=== PATIENT | male | born 1930 | race Caucasian/White ===

== ENCOUNTER 2016-10-10 13:09 | Observation (INO) | payer MEDICARE, OTHER ==
--- NOTE | 2016-10-10 14:14 | CR ---
Ankle Min 3V Lt, Foot Comp Min 3V Lt INDICATION: pain and swelling in the left ankle FINDINGS: Slight bunion deformity and mild degenerative narrowing first MTP joint. Fracture of the d istal shaft of the third metatarsal appears subacute or chronic, however, clinically correlate with patient's point tenderness to exclude acute fracture. Chronic deformity of the calcaneus. Probable p es cavus. Ankle mortise is intact. Arterial calcification. Exam otherwise negative.
--- NOTE | 2016-10-10 15:16 | EDM.PDOC ---
ED HPI GENERAL MEDICAL PROBLEM - General Chief Complaint: Lower Extremity Injury/Pain Stated Complaint: INJURY LT ANKLE/FOOT Time Seen by Provider: 10/10/16 13:35 Source of Information: Reports: Patient, Family History Limitations: Reports: No Limitations - History of Present Illness INITIAL COMMENTS - FREE TEXT/NARRATIVE: pt was transfering and his left leg gave out and he fell. He is having pain on the lateral portion of the ankle. He has a fair amount of swelling in the foot and ankle. He is most tender on the lateral portion of the ankle. Onset: Other (yesterday. ) Duration: Hour(s):, Getting Worse Location: Reports: Lower Extremity, Left Associated Symptoms: Reports: Other (pt has slight bruising around the left eye. He did not hit his head or was not knocked out. ) - Related Data Allergies Allergy/AdvReac Type Severity Reaction Status Date / Time No Known Allergies Allergy Verified 10/10/16 13:37 Home Meds: Home Meds Albuterol [Proventil HFA] 2 puff INH Q4H PRN 10/10/16 [History] Allopurinol [Zyloprim] 1 tab PO DAILY 10/10/16 [History] Aspirin [Ecotrin] 1 tab PO DAILY 10/10/16 [History] Budesonide/Formoterol [Symbicort 160-4.5 MCG] 2 puff INH BID 10/10/16 [History] Cefdinir [Omnicef] 1 cap PO BID 10/10/16 [History] Cholecalciferol (Vitamin D3) [Vitamin D3] 1 tab PO DAILY 10/10/16 [History] Citalopram [Citalopram HBr] 1 tab PO DAILY 10/10/16 [History] Ergocalciferol (Vitamin D2) [Vitamin D2] 1 tab PO ASDIRECTED 10/10/16 [History] Pioglitazone [Actos] 1 tab PO QAM 10/10/16 [History] Pravastatin [Pravachol] 1 tab PO BEDTIME 10/10/16 [History] Silver Sulfadiazine [Silvadene 1% Cream 20 GM] 1 applic TOP DAILY 10/10/16 [ History] Tamsulosin [Flomax] 1 tab PO BEDTIME 10/10/16 [History] glipiZIDE [Glucotrol] 1 tab PO BID 10/10/16 [History] metFORMIN [Glucophage] 1 tab PO BID 10/10/16 [History] Past Medical History HEENT History: Reports: Cataract Cardiovascular History: Reports: High Cholesterol, Hypertension, Stents Other Cardiovascular History: 5 stents Musculoskeletal History: Reports: Other (See Below) Other Musculoskeletal History: post polio syndrome Endocrine/Metabolic History: Reports: Diabetes, Type II Oncologic (Cancer) History: Reports: Colon - Infectious Disease History Infectious Disease History: Reports: Other (See Below) Other Infectious Disease History: polio - Past Surgical History HEENT Surgical History: Reports: Cataract Surgery GI Surgical History: Reports: Colonoscopy, Other (See Below) Other GI Surgeries/Procedures: bowel resection Musculoskeletal Surgical History: Reports: Joint Replacement, Knee Replacement Other Musculoskeletal Surgeries/Procedures:: right knee Social & Family History - Tobacco Use Smoking Status *Q: Former Smoker Years of Tobacco use: 30 Packs/Tins Daily: 0.5 Used Tobacco, but Quit: Yes Month Tobacco Last Used: february - Caffeine Use Caffeine Use: Reports: Soda - Recreational Drug Use Recreational Drug Use: No Review of Systems - Review of Systems Review Of Systems: See Below Constitutional: Reports: No Symptoms Eyes: Reports: No Symptoms Ears: Reports: No Symptoms Nose: Reports: No Symptoms Mouth/Throat: Reports: No Symptoms Respiratory: Reports: No Symptoms Cardiovascular: Reports: No Symptoms GI/Abdominal: Reports: No Symptoms Musculoskeletal: Reports: Other (pain and swelling in the left foot and ankle. ) Skin: Reports: No Symptoms ED EXAM, GENERAL - Physical Exam Exam: See Below Free Text/Narrative:: pt states his left leg gave way and he fell and now he has oain in the left ankle. He states he is having difficulty walking with it. Exam Limited By: No Limitations General Appearance: Alert, Anxious Ears: Normal TMs Nose: Normal Inspection Throat/Mouth: Normal Inspection Extremities: Other (pt has sig swelling of the left foot and ankle. He has redness around the lateral aspect of the ankle. This area is very tender to palpate. r) Neurological: Alert, Oriented Course - Vital Signs Last Recorded V/S: Last Vital Signs Temp 37.0 C 10/10/16 14:01 Pulse 94 10/10/16 14:01 Resp 16 10/10/16 14:01 BP 169/99 H 10/10/16 14:01 Pulse Ox 92 L 10/10/16 14:01 - Orders/Labs/Meds Labs: Laboratory Tests 10/10/16 10/10/16 Range/Units 14:30 14:30 WBC 12.5 H (4.5-11.0) K/uL RBC 3.98 L (4.30-5.90) M/uL Hgb 12.0 (12.0-15.0) g/dL Hct 36.4 L (40.0-54.0) % MCV 92 (80-98) fL MCH 30 (27-31) pg MCHC 33 (32-36) % Plt Count 234 (150-400) K/uL Add Manual Diff Yes Neutrophils % (Manual) 72 H (36-66) % Lymphocytes % (Manual) 13 L (24-44) % Monocytes % (Manual) 15 H (2-6) % Uric Acid 8.0 H (3.5-7.2) mg/dL Meds: Medications Discontinued Medications Generic Name Dose Route Start Last Admin Trade Name Freq PRN Reason Stop Dose Admin Hydrocodone Bitart/Acetaminophen 1 tab 10/10/16 15:45 10/10/16 15:55 Bryson 325-5 Mg PO 10/10/16 15:46 1 tab ONETIME ONE Administration Triamcinolone Acetonide 60 mg 10/10/16 15:23 10/10/16 15:55 Kenalog-40 INJECT 10/10/16 15:24 60 mg ASDIRECTED ONE Administration - Re-Assessments/Exams Free Text/Narrative Re-Assessment/Exam: 10/10/16 15:22 xrays did not reveal any acute fractures. He had a elevated uric acid and wbc. Departure - Departure Time of Disposition: 15:24 Disposition: Admitted As Inpatient 68 Condition: Fair Clinical Impression: Sprain of left ankle, Gout of left ankle - Discharge Information Instructions: Gout, [id number], Ankle Sprain, [id number] Referrals: PCP,None [Primary Care Provider] - Forms: ED Department Discharge Care Plan Goals: cool pack to the foot and ankle, cam walker, The walker can be taken off and on. elevate left leg if possible, predisone 10mg daily for 4 days, appt with his usual Dr in 4-5 days. He may need an increase in his allpurinol to prevent the gout. Use the wheel chair at home. norco 1/2 to 1 tab at bedtime for pain. after some consideration with discharge planning our only option is to admit overnite.
[2016-10-10] MEDS ORDERED: Triamcinolone Acetonide 40 MG/ML 1 ML MDV INJECT ONE (15:23)
[2016-10-10] MEDS ORDERED: Acetaminophen/HYDROcodone 325-5 MG Tab PO ONE (15:45)
--- NOTE | 2016-10-10 18:47 | PCM.HP ---
H&P History of Present Illness - General Date of Service: 10/10/16 Admit Problem/Dx: Admission Diagnosis/Problem Admission Diagnosis/Problem Gout Source of Information: Patient, Provider, RN Notes Reviewed History Limitations: Reports: No Limitations - History of Present Illness Initial Comments - Free Text/Narative: Mr. Silva is an 86-year-old gentleman who is admitted through the emergency department to observation status for management of gout involving his left ankle. 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 X-rays obtained in the emergency department showed no evidence of fracture although there is significant tenderness and swelling about the ankle with associated erythema. He does have a previous history of gout as well as chronic kidney disease stage IV. His uric acid level was significantly elevated. - Related Data Allergies/Adverse Reactions: Allergies Allergy/AdvReac Type Severity Reaction Status Date / Time No Known Allergies Allergy Verified 10/10/16 13:37 Home Medications: Home Meds Albuterol [Proventil HFA] 2 puff INH Q4H PRN 10/10/16 [History] Allopurinol [Zyloprim] 1 tab PO DAILY 10/10/16 [History] Aspirin [Ecotrin] 1 tab PO DAILY 10/10/16 [History] Budesonide/Formoterol [Symbicort 160-4.5 MCG] 2 puff INH BID 10/10/16 [History] Cefdinir [Omnicef] 1 cap PO BID 10/10/16 [History] Cholecalciferol (Vitamin D3) [Vitamin D3] 1 tab PO DAILY 10/10/16 [History] Citalopram [Citalopram HBr] 1 tab PO DAILY 10/10/16 [History] Ergocalciferol (Vitamin D2) [Vitamin D2] 1 tab PO ASDIRECTED 10/10/16 [History] Pioglitazone [Actos] 1 tab PO QAM 10/10/16 [History] Pravastatin [Pravachol] 1 tab PO BEDTIME 10/10/16 [History] Silver Sulfadiazine [Silvadene 1% Cream 20 GM] 1 applic TOP DAILY 10/10/16 [ History] Tamsulosin [Flomax] 1 tab PO BEDTIME 10/10/16 [History] glipiZIDE [Glucotrol] 1 tab PO BID 10/10/16 [History] metFORMIN [Glucophage] 1 tab PO BID 10/10/16 [History] Past Medical History HEENT History: Reports: Cataract Cardiovascular History: Reports: High Cholesterol, Hypertension, Stents Other Cardiovascular History: 5 stents Musculoskeletal History: Reports: Other (See Below) Other Musculoskeletal History: post polio syndrome Endocrine/Metabolic History: Reports: Diabetes, Type II Oncologic (Cancer) History: Reports: Colon - Infectious Disease History Infectious Disease History: Reports: Other (See Below) Other Infectious Disease History: polio - Past Surgical History HEENT Surgical History: Reports: Cataract Surgery GI Surgical History: Reports: Colonoscopy, Other (See Below) Other GI Surgeries/Procedures: bowel resection Musculoskeletal Surgical History: Reports: Joint Replacement, Knee Replacement Other Musculoskeletal Surgeries/Procedures:: right knee Social & Family History - Tobacco Use Smoking Status *Q: Former Smoker Years of Tobacco use: 30 Packs/Tins Daily: 0.5 Used Tobacco, but Quit: Yes Month Tobacco Last Used: february - Caffeine Use Caffeine Use: Reports: Soda - Recreational Drug Use Recreational Drug Use: No H&P Review of Systems - Review of Systems: Review Of Systems: See Below General: Denies: Fever, Chills, Night Sweats HEENT: Reports: No Symptoms Pulmonary: Reports: No Symptoms Gastrointestinal: Reports: No Symptoms Genitourinary: Reports: No Symptoms Musculoskeletal: Reports: Other (Left ankle pain) Skin: Reports: No Symptoms Psychiatric: Reports: No Symptoms Neurological: Reports: No Symptoms Hematologic/Lymphatic: Reports: No Symptoms Immunologic: Reports: No Symptoms Exam - Exam Exam: See Below - Vital Signs Vital Signs: Last Vital Signs Temp 98.6 F 10/10/16 14:01 Pulse 94 10/10/16 14:01 Resp 16 10/10/16 14:01 BP 169/99 H 10/10/16 14:01 Pulse Ox 92 L 10/10/16 14:01 Weight: 243 lb - Exam Quality Assessment: DVT Prophylaxis General: Alert, Oriented, Cooperative HEENT: Conjunctiva Clear, Mucosa Moist & [place], Normal Nasal Septum, Posterior Pharynx Clear, Pupils Equal Neck: Supple, Trachea Midline, +2 Carotid Pulse wo Bruit Lungs: Clear to Auscultation, Normal Respiratory Effort Cardiovascular: Regular Rate, Regular Rhythm, Normal S1, Normal S2. No: Systolic Murmur, Diastolic Murmur Abdomen: Normal Bowel Sounds, Soft Back Exam: Normal Inspection, Full Range of Motion, NT Extremities: Other (Tenderness, erythema, and swelling left ankle) Skin: Warm, Dry, Intact Neurological: Cranial Nerves Intact, Strength Equal Bilateral, Normal Speech, Normal Tone. No: Focal Deficit Neuro Extensive - Mental Status: Alert, Oriented x3, Normal Mood/Affect, Normal Cognition - Patient Data Lab Results Last 24 hrs: Laboratory Results - last 24 hr 10/10/16 Range/Units 18:02 Urine Color Yellow Urine Appearance Clear Urine pH 5.0 (4.5-8.0) Ur Specific [place] 1.020 (1.008-1.030) Urine Protein Negative (NEGATIVE) mg/dL Urine Glucose (UA) Normal (NEGATIVE) mg/dL Urine Ketones 15 H (NEGATIVE) mg/dL Urine Occult Blood Negative (NEGATIVE) Urine Nitrite Negative (NEGAITVE) Urine Bilirubin Negative (NEGATIVE) Urine Urobilinogen Normal (NORMAL) mg/dL Ur Leukocyte Esterase Negative (NEGATIVE) Urine RBC 0-5 (0-5) Urine WBC 0-5 (0-5) Ur Epithelial Cells Few Amorphous Sediment Not seen Urine Bacteria Moderate Urine Mucus Few Result Diagrams: 10/10/16 14:30 10/10/16 16:31 *Q Meaningful Use (ADM) - VTE *Q VTE Criteria *Q: - VTE Risk Assess *Q Each Risk Factor Represents 1 Point: Obesity (BMI greater than 30) Total Score 1 Point Risk Factors: 1 Each Risk Factor Represents 2 Points: None Total Score 2 Point Risk Factors: 0 Each Risk Factor Represents 3 Points: Age 75 Years or Greater Total Score 3 Point Risk Factors: 3 Each Risk Factor Represents 5 Points: None Total Score 5 Point Risk Factors: 0 Venous Thromboembolism Risk Factor Score *Q: 4 - Stroke *Q Stroke Criteria *Q: - AMI *Q AMI Criteria *Q: Problem List Initiated/Reviewed/Updated: Yes Orders Last 24hrs: Active Orders 24 hr Category Date Time Status Resuscitation Status Routine Resus Stat 10/10/16 17:09 Ordered Assessment/Plan Comment:: ASSESSMENT AND PLAN GOUT LEFT ANKLE-pain after a fall yesterday, evidence of an old third metatarsal fracture, no evidence of acute fracture. Elevated uric acid level associated with pain and swelling. Not a candidate for cultures seen or nonsteroidal therapy because of stage IV chronic kidney disease. -Solu-Medrol 40 mg IV every 6 hours CHRONIC KIDNEY DISEASE STAGE IV -Closely monitor urine output and renal function during hospital stay TYPE 2 DIABETES MELLITUS -Hold metformin given significant renal dysfunction -Continue Actos and glipizide -4 times a day glucometers -Low-dose sliding scale NovoLog CORONARY ARTERY DISEASE-currently asymptomatic -Continue outpatient medical therapy MAINTENANCE ISSUES -DVT prophylaxis; Lovenox 30 mg subcutaneous daily -GI prophylaxis; not indicated -[place] catheter; not indicated -Nutrition; consistent carb diet -Nicotinic dependence; not required CODE STATUS-FULL CODE ADMISSION STATUS-this patient will be admitted to observation status, expect no more than a one night hospital stay for evaluation and management of problems as outlined above. DISPOSITION-anticipate discharge to home after the hospital stay. PRIMARY CARE PROVIDER-
[2016-10-10] MEDS ORDERED: Albuterol 8 GM Inhaler INH PRN (19:17)
[2016-10-10] MEDS ORDERED: Enoxaparin 30 MG/0.3 ML Syringe SUBCUT SCH (19:17)
[2016-10-10] MEDS ORDERED: Acetaminophen 325 MG Tab PO PRN (19:17)
[2016-10-10] MEDS ORDERED: Ondansetron 4 MG/2 ML SDV IV PRN (19:17)
[2016-10-10] MEDS ORDERED: Docusate Sodium 100 MG Cap PO PRN (19:17)
[2016-10-10] MEDS ORDERED: Polyethylene Glycol 3350 Powder 17 GM Packet PO PRN (19:17)
[2016-10-10] MEDS ORDERED: Glucose Gel 15 GM in 37.5 GM Tube PO PRN (19:17)
[2016-10-10] MEDS ORDERED: 50% Dextrose in Water 50 ML Syringe IV PRN (19:17)
[2016-10-10] MEDS ORDERED: Acetaminophen/HYDROcodone 325-5 MG Tab PO PRN (19:17)
[2016-10-10] MEDS ORDERED: Magnesium Hydroxide 400 MG/5 ML Susp 30 ML Cup PO PRN (19:17)
[2016-10-10] MEDS: Cefdinir 300 MG Cap PO SCH (20:30)
[2016-10-10] MEDS: methylPREDNISolone Sodium Succinate 40 MG/1 ML SDV IVPUSH SCH (20:30)
[2016-10-10] MEDS: Sodium Chloride 0.9% 10 ML Syringe FLUSH PRN (20:33)
[2016-10-10] MEDS ORDERED: Tamsulosin 0.4 MG Cap.ER PO SCH (21:00)
[2016-10-10] MEDS ORDERED: Pravastatin 20 MG Tab PO SCH (21:00)
[2016-10-10] MEDS: glipiZIDE 5 MG Tab PO SCH (21:11)
[2016-10-10] MEDS: Formoterol/Mometasone 200-5 MCG 8.8 GM Inhaler IH SCH (21:11)
[2016-10-10] MEDS: Insulin Aspart 100 Units/ML 3 ML Pen SUBCUT SCH (21:28)
[2016-10-11] MEDS: methylPREDNISolone Sodium Succinate 40 MG/1 ML SDV IVPUSH SCH ×2 (02:16→08:39)
[2016-10-11] MEDS: Sodium Chloride 0.9% 10 ML Syringe FLUSH PRN (02:17)
[2016-10-11] MEDS: Insulin Aspart 100 Units/ML 3 ML Pen SUBCUT SCH ×2 (08:31→14:11)
[2016-10-11] MEDS ORDERED: Allopurinol 100 MG Tab PO SCH (09:00)
[2016-10-11] MEDS ORDERED: Pioglitazone 15 MG Tab PO SCH (09:00)
[2016-10-11] MEDS ORDERED: Aspirin 325 MG Tab.EC PO SCH (09:00)
[2016-10-11] MEDS ORDERED: Cholecalciferol (Vitamin D3) 1,000 Unit Tab PO SCH (09:00)
[2016-10-11] MEDS ORDERED: Citalopram 20 MG Tab PO SCH (09:00)
[2016-10-11] MEDS ORDERED: Ergocalciferol (Vitamin D2) 50,000 Unit Cap PO SCH (09:00)
--- NOTE | 2016-10-11 09:30 | PCM.DCSUM1 ---
Discharge Summary - Hospital Course Brief History: Mr. Silva is an 86-year-old gentleman who was admitted to observation status through the emergency department because of severe pain in his left ankle secondary to gout. - Discharge Data Discharge Date: 10/11/16 Discharge Disposition: Home, Self-Care 01 Condition: Fair - Discharge Diagnosis/Problem(s) (1) Type 2 diabetes mellitus SNOMED Code(s): 61408627 ICD Code: E11.9 - TYPE 2 DIABETES MELLITUS WITHOUT COMPLICATIONS Status: Acute Current Visit: Yes (2) CKD (chronic kidney disease) stage 4, GFR 15-29 ml/min SNOMED Code(s): 392701544 ICD Code: N18.4 - CHRONIC KIDNEY DISEASE, STAGE 4 (SEVERE) Status: Acute Current Visit: Yes (3) Sprain of left ankle SNOMED Code(s): 94587288 ICD Code: S93.402A - SPRAIN OF UNSPECIFIED LIGAMENT OF LEFT ANKLE, INIT ENCNTR Status: Acute Current Visit: Yes (4) Gout of left ankle SNOMED Code(s): 326839148 ICD Code: M10.9 - GOUT, UNSPECIFIED Status: Acute Current Visit: Yes - Patient Summary/Data Consults: Consultations 10/10/16 19:17 PT Evaluation and Treatment [CONS] Routine Please Evaluate and Treat. PT Reason for Consult: Ambulation This query below is only for informational purposes and is not editable. Hospital Course: Mr. Silva is a 6-year-old gentleman with several medical problems including type 2 diabetes mellitus, chronic kidney disease stage IV, and coronary artery disease. He fell on the day prior to admission and noted increased pain in his left ankle following a fall. 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 On evaluation in emergency department x-rays are negative for acute fracture, there was evidence of probable subacute or chronic fracture involving the distal aspect of the third metatarsal on the left. There was significant tenderness to palpation associated with erythema felt that he probably had a gout flare, uric acid level was 8. He was given IV Solu-Medrol after admission and by the following morning noted marked improvement in the inflammation and pain involving his left ankle. His creatinine was noted to be significantly elevated with a GFR consistent with stage IV chronic kidney disease. Metformin was held during his hospital stay. I've asked him to see his primary care provider for follow-up, given his significant kidney dysfunction we 'll likely need to stop the metformin and place him on alternative therapy. I did explain to the patient that this would likely involve insulin. He will receive prednisone 40 mg daily for 2 additional days. Activity will be as tolerated and he will resume his diabetic diet. Follow-up appointment will be scheduled in 5 days with his primary care provider, BMP should be obtained at the time of follow-up appointment. - Patient Instructions Diet: Diabetic Diet Activity: As Tolerated Other/Special Instructions: Please schedule follow-up appointment with primary care provider within one week, to discuss chronic kidney disease stage IV as well as management of his diabetes. BMP should be obtained at the time of follow -up appointment. - Discharge Plan Prescriptions/Med Rec: predniSONE [Prednisone] 40 mg PO DAILY #4 tablet Home Medications: Home Meds Albuterol [Proventil HFA] 2 puff INH Q4H PRN 10/10/16 [History] Allopurinol [Zyloprim] 1 tab PO DAILY 10/10/16 [History] Aspirin [Ecotrin] 1 tab PO DAILY 10/10/16 [History] Budesonide/Formoterol [Symbicort 160-4.5 MCG] 2 puff INH BID 10/10/16 [History] Cefdinir [Omnicef] 1 cap PO BID 10/10/16 [History] Cholecalciferol (Vitamin D3) [Vitamin D3] 1 tab PO DAILY 10/10/16 [History] Citalopram [Citalopram HBr] 1 tab PO DAILY 10/10/16 [History] Ergocalciferol (Vitamin D2) [Vitamin D2] 1 tab PO ASDIRECTED 10/10/16 [History] Pioglitazone [Actos] 1 tab PO QAM 10/10/16 [History] Pravastatin [Pravachol] 1 tab PO BEDTIME 10/10/16 [History] Silver Sulfadiazine [Silvadene 1% Cream 20 GM] 1 applic TOP DAILY 10/10/16 [ History] Tamsulosin [Flomax] 1 tab PO BEDTIME 10/10/16 [History] glipiZIDE [Glucotrol] 1 tab PO BID 10/10/16 [History] predniSONE [Prednisone] 40 mg PO DAILY #4 tablet 10/11/16 [Rx] Patient Handouts: Gout, [id number], Ankle Sprain, [id number] Forms: ED Department Discharge Referrals: PCP,None [Primary Care Provider] - - Patient Data Vitals - Most Recent: Last Vital Signs Temp 98.6 F 10/11/16 07:30 Pulse 88 10/11/16 07:30 Resp 20 10/11/16 07:30 BP 181/73 H 10/11/16 07:30 Pulse Ox 95 10/11/16 07:30 Weight - Most Recent: 243 lb I&O - Last 24 hours: Intake & Output 10/10/16 10/11/16 10/11/16 22:59 06:59 14:59 Intake Total 120 200 Output Total 225 625 Balance -105 -425 Lab Results - Last 24 hrs: Laboratory Results - last 24 hr 10/10/16 10/11/16 10/11/16 Range/Units 18:02 06:01 06:01 WBC 8.1 (4.5-11.0) K/uL RBC 3.90 L (4.30-5.90) M/uL Hgb 11.3 L (12.0-15.0) g/dL Hct 35.6 L (40.0-54.0) % MCV 91 (80-98) fL MCH 29 (27-31) pg MCHC 32 (32-36) % Plt Count 216 (150-400) K/uL Neut % (Auto) 87 H (36-66) % Lymph % (Auto) 8 L (24-44) % [place] % (Auto) 4 (2-6) % Eos % (Auto) 0 L (2-4) % Baso % (Auto) 0 (0-1) % Sodium 140 (140-148) mmol/L Potassium 4.6 (3.6-5.2) mmol/L Chloride 103 (100-108) mmol/L Carbon Dioxide 28 (21-32) mmol/L Anion Gap 8.9 (5.0-14.0) mmol/L BUN 45 H (7-18) mg/dL Creatinine 2.0 H (0.8-1.3) mg/dL Est Cr Clr Drug Dosing 30.18 mL/min Estimated GFR (MDRD) 32 L (>60) Glucose 228 H (74-106) mg/dL Calcium 8.8 (8.5-10.1) mg/dL Urine Color Yellow Urine Appearance Clear Urine pH 5.0 (4.5-8.0) Ur Specific [place] 1.020 (1.008-1.030) Urine Protein Negative (NEGATIVE) mg/dL Urine Glucose (UA) Normal (NEGATIVE) mg/dL Urine Ketones 15 H (NEGATIVE) mg/dL Urine Occult Blood Negative (NEGATIVE) Urine Nitrite Negative (NEGAITVE) Urine Bilirubin Negative (NEGATIVE) Urine Urobilinogen Normal (NORMAL) mg/dL Ur Leukocyte Esterase Negative (NEGATIVE) Urine RBC 0-5 (0-5) Urine WBC 0-5 (0-5) Ur Epithelial Cells Few Amorphous Sediment Not seen Urine Bacteria Moderate Urine Mucus Few Med Orders - Current: Current Medications Acetaminophen (Tylenol) 650 mg PO Q4H PRN PRN Reason: Pain (Mild 1-3)/fever Hydrocodone Bitart/Acetaminophen (Distant 325-5 Mg) 1 tab PO Q4H PRN PRN Reason: Pain (moderate 4-6) Last Admin: 10/10/16 21:27 Dose: 1 tab Albuterol (Ventolin Hfa) 0 gm INH Q4H PRN PRN Reason: Shortness of Breath Allopurinol (Zyloprim) 100 mg PO DAILY [facility] Aspirin (Ecotrin) 325 mg PO DAILY [facility] Cefdinir (Omnicef) 300 mg PO BID [facility] Last Admin: 10/10/16 20:30 Dose: 300 mg Cholecalciferol (Vitamin D3) 2,000 units PO DAILY [facility] Citalopram Hydrobromide (Celexa) 20 mg PO DAILY [facility] Dextrose (Glutose 15) 15 gm PO ONETIME PRN PRN Reason: Hypoglycemia Dextrose/Water (Dextrose 50% In Water) 50 ml IV ONETIME PRN PRN Reason: Hypoglycemia Docusate Sodium (Colace) 100 mg PO BID PRN PRN Reason: Constipation Enoxaparin Sodium (Lovenox) 30 mg SUBCUT Q24H [facility] Ergocalciferol (Vitamin D2) 50,000 units PO TuFr@0900 [facility] Glipizide (Glucotrol) 5 mg PO BID [facility] Last Admin: 10/10/16 21:11 Dose: Not Given Insulin Aspart (Novolog) 0 unit SUBCUT WITHMEALSANDBED [facility] PRN Reason: Protocol Last Admin: 10/11/16 08:31 Dose: 2 unit Magnesium Hydroxide (Milk Of Magnesia) 30 ml PO Q12H PRN PRN Reason: Constipation Methylprednisolone Sodium Succinate (Solu-Medrol) 40 mg IVPUSH Q6H [facility] Last Admin: 10/11/16 08:39 Dose: 40 mg Mometasone Furoate/Formoterol Fumar (Dulera 200-5 Mcg) 2 puff IH BID [facility] Last Admin: 10/10/16 21:11 Dose: Not Given Ondansetron HCl (Zofran) 4 mg IV Q4H PRN PRN Reason: Nausea/Vomiting Pioglitazone HCl (Actos) 30 mg PO QAM [place]AY[place] Polyethylene Glycol (Miralax) 17 gm PO DAILY PRN PRN Reason: Constipation Pravastatin Sodium (Pravachol) 40 mg PO BEDTIME [facility] Last Admin: 10/10/16 21:12 Dose: Not Given Sodium Chloride (Saline Flush) 10 ml FLUSH ASDIRECTED PRN PRN Reason: Keep Vein Open Last Admin: 10/11/16 02:17 Dose: 10 ml Tamsulosin HCl (Flomax) 0.4 mg PO BEDTIME [facility] Last Admin: 10/10/16 21:11 Dose: Not Given Discontinued Medications Hydrocodone Bitart/Acetaminophen (Distant 325-5 Mg) 1 tab PO ONETIME ONE Stop: 10/10/16 15:46 Last Admin: 10/10/16 15:55 Dose: 1 tab Enoxaparin Sodium (Lovenox) 30 mg SUBCUT DAILY [facility] Last Admin: 10/10/16 20:29 Dose: 30 mg Triamcinolone Acetonide (Kenalog-40) 60 mg INJECT ASDIRECTED ONE Stop: 10/10/16 15:24 Last Admin: 10/10/16 15:55 Dose: 60 mg *Q Meaningful Use (DIS) - VTE *Q VTE Criteria *Q: - Stroke *Q Stroke Criteria *Q: - AMI *Q AMI Criteria *Q:
[2016-10-11] MEDS: Formoterol/Mometasone 200-5 MCG 8.8 GM Inhaler IH SCH (10:51)
[2016-10-11] MEDS ORDERED: Insulin Aspart 100 Units/ML 3 ML Pen SUBCUT ONE (11:45)
[2016-10-11 12:42] VITALS: BP 147/92
[2016-10-11] MEDS: Cefdinir 300 MG Cap PO SCH (14:10)
[2016-10-11] MEDS: glipiZIDE 5 MG Tab PO SCH (14:10)
[2016-10-11] MEDS ORDERED: Enoxaparin 30 MG/0.3 ML Syringe SUBCUT SCH (18:00)
== END 2016-10-11 13:30 | disposition home or self-care (01) ==
LOC: JP.ED 13:09 → JP.ICU 17:07
PROVIDERS: ADMIT Hospitalist; ATTEND Hospitalist
DX: S93.402A Sprain of unspecified ligament of left ankle, initial encounter (principal); M10.9 Gout, unspecified; I12.9 Hypertensive chronic kidney disease with stage 1 through stage 4 chronic kidney disease, or unspecified chronic kidney disease; E11.22 Type 2 diabetes mellitus with diabetic chronic kidney disease; N18.4 Chronic kidney disease, stage 4 (severe); Z79.84 Long term (current) use of oral hypoglycemic drugs; I25.10 Atherosclerotic heart disease of native coronary artery without angina pectoris; E78.00 Pure hypercholesterolemia, unspecified; E66.9 Obesity, unspecified; Z79.82 Long term (current) use of aspirin; Z95.5 Presence of coronary angioplasty implant and graft; Z87.891 Personal history of nicotine dependence; Z79.899 Other long term (current) drug therapy; Z98.890 Other specified postprocedural states; Z90.49 Acquired absence of other specified parts of digestive tract; W01.0XXA Fall on same level from slipping, tripping and stumbling without subsequent striking against object, initial encounter
CPT/HCPCS: 36415; 73610; 73630; 80048; 80053; 81001; 82962; 84550; 85025; 96372; 99284; A9270; J1650; J2920; J3301; J7050; 96374; 99217; 99219; 99283; G0378

== ENCOUNTER 2016-10-24 16:55 | Observation (INO) | payer MEDICARE, OTHER ==
--- NOTE | 2016-10-24 17:58 | EDM.PDOC ---
<Meño Duron - Last Filed: 10/24/16 18:07> ED HPI GENERAL MEDICAL PROBLEM - General Chief Complaint: General Stated Complaint: MEDICAL [facility]IA [facility] Time Seen by Provider: 10/24/16 17:30 Source of Information: Reports: Patient, EMS, Family History Limitations: Reports: No Limitations - History of Present Illness INITIAL COMMENTS - FREE TEXT/NARRATIVE: 86-year-old male who still lives at home but is being taken care of by his children gets in-home occupational therapy and today he wasn't able to cooperate with therapy at his usual level, seemed confused, was not able to count past 13 and unable to understand the concept of counting backwards. He has also had a persistent headache for the past 2 weeks which is unusual for him , however no fevers or chills no nausea or vomiting, it does not seem to be interrupting his sleep. He has had some medication changes recently. Patient also mentioned he had some double vision and dizziness this morning. The patient himself is convinced it's his medicines. He now seems more lucid, is able to count backwards and forwards and is answering questions appropriately. Throughout this he has not developed any peripheral symptoms such as weakness or paresthesias. Onset: Gradual (Over the past 1-2 days) Severity: Moderate Associated Symptoms: Reports: Confusion, Headaches, Shortness of Breath. Denies : Chest Pain, Fever/Chills, Nausea/Vomiting - Related Data Allergies Allergy/AdvReac Type Severity Reaction Status Date / Time No Known Allergies Allergy Verified 10/10/16 13:37 Home Meds: Home Meds Albuterol [Proventil HFA] 2 puff INH Q4H PRN 10/10/16 [History] Allopurinol [Zyloprim] 1 tab PO DAILY 10/10/16 [History] Aspirin [Ecotrin] 1 tab PO DAILY 10/10/16 [History] Budesonide/Formoterol [Symbicort 160-4.5 MCG] 2 puff INH BID 10/10/16 [History] Cefdinir [Omnicef] 1 cap PO BID 10/10/16 [History] Cholecalciferol (Vitamin D3) [Vitamin D3] 1 tab PO DAILY 10/10/16 [History] Citalopram [Citalopram HBr] 1 tab PO DAILY 10/10/16 [History] Ergocalciferol (Vitamin D2) [Vitamin D2] 1 tab PO ASDIRECTED 10/10/16 [History] Pioglitazone [Actos] 1 tab PO QAM 10/10/16 [History] Pravastatin [Pravachol] 1 tab PO BEDTIME 10/10/16 [History] Silver Sulfadiazine [Silvadene 1% Cream 20 GM] 1 applic TOP DAILY 10/10/16 [ History] Tamsulosin [Flomax] 1 tab PO BEDTIME 10/10/16 [History] glipiZIDE [Glucotrol] 1 tab PO BID 10/10/16 [History] Indomethacin [Indocin] 25 mg PO TID 10/24/16 [History] Insulin Glarg,Human.Rec.Analog [Lantus Solostar] 20 units SUBCNJ BEDTIME [History] Past Medical History HEENT History: Reports: Cataract, Impaired Vision Cardiovascular History: Reports: High Cholesterol, Hypertension, Stents Other Cardiovascular History: 5 stents Respiratory History: Reports: SOB, Other (See Below) Other Respiratory History: on inhaler Genitourinary History: Reports: Other (See Below) Other Genitourinary History: slow flow Musculoskeletal History: Reports: Other (See Below) Other Musculoskeletal History: post polio syndrome Endocrine/Metabolic History: Reports: Diabetes, Type II Oncologic (Cancer) History: Reports: Colon - Infectious Disease History Infectious Disease History: Reports: Other (See Below) Other Infectious Disease History: polio - Past Surgical History HEENT Surgical History: Reports: Cataract Surgery GI Surgical History: Reports: Colonoscopy, Other (See Below) Other GI Surgeries/Procedures: bowel resection Musculoskeletal Surgical History: Reports: Joint Replacement, Knee Replacement Other Musculoskeletal Surgeries/Procedures:: right knee Social & Family History - Tobacco Use Smoking Status *Q: Former Smoker Years of Tobacco use: 30 Packs/Tins Daily: 0.5 Used Tobacco, but Quit: Yes Month Tobacco Last Used: 30 years Second Hand Smoke Exposure: No - Caffeine Use Caffeine Use: Reports: Coffee - Recreational Drug Use Recreational Drug Use: No ED ROS GENERAL - Review of Systems Review Of Systems: See Below Constitutional: Denies: Fever, Chills, Malaise HEENT: Reports: No Symptoms Respiratory: Reports: Shortness of Breath (Chronic and recurring) Cardiovascular: Denies: Chest Pain GI/Abdominal: Denies: Abdominal Pain, Nausea, Vomiting Musculoskeletal: Reports: Other (Still wrapping his left lower leg from a recent sprain) Skin: Reports: Bruising Neurological: Reports: Confusion, Headache. Denies: Syncope Psychiatric: Reports: No Symptoms ED EXAM, GENERAL - Physical Exam Exam: See Below Exam Limited By: No Limitations General Appearance: Alert, No Apparent Distress Eye Exam: Bilateral Eye: EOMI Respiratory/Chest: No Respiratory Distress, Wheezing (Diffuse expiratory wheezes and decreased breath sounds are heard) Cardiovascular: Regular Rate, Rhythm GI/Abdominal: Non-Tender, Other (Patient is quite obese, nontender to palpation) Extremities: Other (An Woody wrap was present on the left foot, a small amount of swelling and scattered bruises to both arms and legs) Neurological: Alert, Oriented, Normal Cognition, No Motor/Sensory Deficits Psychiatric: Normal Affect, Normal Mood Skin Exam: Warm, Dry Course - Vital Signs Last Recorded V/S: Last Vital Signs Temp 36.9 C 10/24/16 17:23 Pulse 80 10/24/16 18:29 Resp 20 10/24/16 18:29 BP 145/70 H 10/24/16 18:29 Pulse Ox 100 10/24/16 18:29 - Orders/Labs/Meds Orders: Active Orders 24 hr Category Date Time Status Head wo Cont [CT] Stat Exams 10/24/16 17:33 Taken Sodium Chloride 0.9% [Normal Saline] 1,000 ml Med 10/24/16 19:00 Active IV ASDIRECTED Medication Orders Sodium Chloride (Normal Saline) 1,000 mls @ 500 mls/hr IV ASDIRECTED JAYDEN Last Admin: 10/24/16 19:04 Dose: 500 mls/hr Labs: Laboratory Tests 10/24/16 10/24/16 10/24/16 Range/Units 18:15 18:15 18:55 WBC 7.2 (4.5-11.0) K/uL RBC 3.91 L (4.30-5.90) M/uL Hgb 11.9 L (12.0-15.0) g/dL Hct 35.4 L (40.0-54.0) % MCV 91 (80-98) fL MCH 30 (27-31) pg MCHC 33 (32-36) % Plt Count 226 (150-400) K/uL Neut % (Auto) 65 (36-66) % Lymph % (Auto) 16 L (24-44) % [place] % (Auto) 13 H (2-6) % Eos % (Auto) 5 H (2-4) % Baso % (Auto) 1 (0-1) % Add Manual Diff Neutrophils % (Manual) 59 (36-66) % Band Neutrophils % 3 L (5-11) % Lymphocytes % (Manual) 23 L (24-44) % Monocytes % (Manual) 10 H (2-6) % Eosinophils % (Manual) 5 H (2-4) % Polychromasia Sodium 139 L (140-148) mmol/L Potassium 4.8 (3.6-5.2) mmol/L Chloride 103 (100-108) mmol/L Carbon Dioxide 32 (21-32) mmol/L Anion Gap 4.5 L (5.0-14.0) mmol/L BUN 47 H (7-18) mg/dL Creatinine 2.2 H (0.8-1.3) mg/dL Est Cr Clr Drug Dosing 27.47 mL/min Estimated GFR (MDRD) 29 L (>60) Glucose 238 H (74-106) mg/dL Calcium 8.8 (8.5-10.1) mg/dL Urine Color Yellow Urine Appearance Clear Urine pH 6.0 (4.5-8.0) Ur Specific [place] 1.015 (1.008-1.030) Urine Protein Negative (NEGATIVE) mg/dL Urine Glucose (UA) 250 H (NEGATIVE) mg/dL Urine Ketones Negative (NEGATIVE) mg/dL Urine Occult Blood Negative (NEGATIVE) Urine Nitrite Negative (NEGAITVE) Urine Bilirubin Negative (NEGATIVE) Urine Urobilinogen Normal (NORMAL) mg/dL Ur Leukocyte Esterase Negative (NEGATIVE) Urine RBC 0-5 (0-5) Urine WBC Not seen (0-5) Ur Epithelial Cells Rare Amorphous Sediment Not seen Urine Bacteria Rare Urine Mucus Rare Meds: Medications Generic Name Dose Route Start Last Admin Trade Name Freq PRN Reason Stop Dose Admin Sodium Chloride 1,000 mls @ 500 mls/hr 10/24/16 19:00 10/24/16 19:04 Normal Saline IV 500 mls/hr ASDIRECTED JAYDEN Administration - Re-Assessments/Exams Free Text/Narrative Re-Assessment/Exam: 10/24/16 18:00 Patient has a known chronic renal failure, CMP and BMP were repeated. A CT of his head will also be obtained. A glucose was checked during his confusion and was 120, hypoglycemia was not the cause. 10/24/16 18:08 Care was turned over to Dr. Haq Departure - Departure Disposition: Home, Self-Care 01 Clinical Impression: Confusion - Discharge Information Forms: ED Department Discharge Additional Instructions: I would recommend that you make an appointment with her doctor for follow-up to see if there is any adjustments that need to be made in your medications and just for continuing care. It was a pleasure to meet you. - My Orders Last 24 Hours: My Active Orders 10/24/16 19:00 Sodium Chloride 0.9% [Normal Saline] 1,000 ml IV ASDIRECTED - Assessment/Plan Last 24 Hours: My Active Orders 10/24/16 19:00 Sodium Chloride 0.9% [Normal Saline] 1,000 ml IV ASDIRECTED <Jimmy Haq - Last Filed: 10/24/16 20:04> ED HPI GENERAL MEDICAL PROBLEM - History of Present Illness INITIAL COMMENTS - FREE TEXT/NARRATIVE: Patient's head CT was negative. I visited with him and the caregiver that was with him and he would like to just go home. I think he understands that at this stage of his life that every days a blessing and anything could happen at any time but he would like to stay away from hospitals and nursing homes and be independent as long as possible. It could be that he had a TIA. He is on aspirin. Departure - Departure Time of Disposition: 20:02 Condition: Fair
[2016-10-24] MEDS ORDERED: Sodium Chloride 0.9% 1,000 ML IV SCH ×2 (19:00→22:59)
[2016-10-24] MEDS ORDERED: Albuterol 0.083% 2.5 MG/3 ML Neb Soln NEB PRN (22:59)
[2016-10-24] MEDS ORDERED: Zolpidem 5 MG Tab PO PRN (22:59)
[2016-10-24] MEDS ORDERED: Morphine 2 MG/ML Syringe IVPUSH PRN (22:59)
[2016-10-24] MEDS ORDERED: Acetaminophen 325 MG Tab PO PRN (22:59)
[2016-10-24] MEDS ORDERED: oxyCODONE 5 MG Tab PO PRN (22:59)
[2016-10-24] MEDS ORDERED: Ondansetron 4 MG Tab.DIS PO PRN (22:59)
[2016-10-24] MEDS ORDERED: LORazepam 2 MG/ML MDV IV PRN (22:59)
[2016-10-24] MEDS ORDERED: Ondansetron 4 MG/2 ML SDV IV PRN (22:59)
[2016-10-24] MEDS ORDERED: Bisacodyl 5 MG Tab PO PRN (22:59)
[2016-10-24] MEDS ORDERED: Docusate Sodium 100 MG Cap PO PRN (22:59)
[2016-10-24] MEDS ORDERED: Ergocalciferol (Vitamin D2) 50,000 Unit Cap PO SCH (23:00)
[2016-10-24] MEDS: Insulin Aspart 100 Units/ML 3 ML Pen SUBCUT SCH (23:49)
[2016-10-24] MEDS: GLIPIZIDE 5 MG PO SCH (23:51)
[2016-10-24] MEDS: Cefdinir 300 MG Cap PO SCH (23:52)
--- NOTE | 2016-10-25 00:24 | PCM.HP ---
H&P History of Present Illness - General Date of Service: 10/24/16 Admit Problem/Dx: Admission Diagnosis/Problem Admission Diagnosis/Problem Weakness Source of Information: Patient History Limitations: Reports: No Limitations - History of Present Illness Initial Comments - Free Text/Narative: HPI GENERAL MEDICAL PROBLEM INITIAL COMMENTS - FREE TEXT/NARRATIVE: 86-year-old male who still lives at home but is being taken care of by his children gets in-home occupational therapy and today he wasn't able to cooperate with therapy at his usual level, seemed confused, was not able to count past 13 and unable to understand the concept of counting backwards. He has also had a persistent headache for the past 2 weeks which is unusual for him , however no fevers or chills no nausea or vomiting, it does not seem to be interrupting his sleep. He has had some medication changes recently. Patient also mentioned he had some double vision and dizziness this morning. The patient himself is convinced it's his medicines. He now seems more lucid, is able to count backwards and forwards and is answering questions appropriately. Throughout this he has not developed any peripheral symptoms such as weakness or paresthesias. Onset: Gradual (Over the past 1-2 days) Severity: Moderate Associated Symptoms: Reports: Confusion, Headaches, Shortness of Breath. Denies : Chest Pain, Fever/Chills, Nausea/Vomiting After further consideration and discussing the home situation with this gentleman it was decided that we should admit him for observation. From the description of the caregiver it sounds like he had a TIA with left-sided numbness of his left arm and left leg which cleared. He's having some dizziness upon arising and laying down in lives alone and is at risk for falls. Onset of Symptoms: Reports: Gradual Duration of Symptoms: Reports: Hour(s): Location: Reports: Generalized Severity: Mild Improves with: Reports: None Worsens with: Reports: None Context: Reports: Other (not feeling well for the past two weeks.) Associated Symptoms: Reports: Confusion, Headaches (x 2 weeks), Shortness of Breath (many years), Weakness Left Feet Pain Score (Numeric/FACES): 3 - Related Data Allergies/Adverse Reactions: Allergies Allergy/AdvReac Type Severity Reaction Status Date / Time No Known Allergies Allergy Verified 10/10/16 13:37 Home Medications: Home Meds Albuterol [Proventil HFA] 2 puff INH Q4H PRN 10/10/16 [History] Allopurinol [Zyloprim] 1 tab PO DAILY 10/10/16 [History] Aspirin [Ecotrin] 1 tab PO DAILY 10/10/16 [History] Budesonide/Formoterol [Symbicort 160-4.5 MCG] 2 puff INH BID 10/10/16 [History] Cefdinir [Omnicef] 1 cap PO BID 10/10/16 [History] Cholecalciferol (Vitamin D3) [Vitamin D3] 1 tab PO DAILY 10/10/16 [History] Citalopram [Citalopram HBr] 1 tab PO DAILY 10/10/16 [History] Ergocalciferol (Vitamin D2) [Vitamin D2] 1 tab PO ASDIRECTED 10/10/16 [History] Pioglitazone [Actos] 1 tab PO QAM 10/10/16 [History] Pravastatin [Pravachol] 1 tab PO BEDTIME 10/10/16 [History] Silver Sulfadiazine [Silvadene 1% Cream 20 GM] 1 applic TOP DAILY 10/10/16 [ History] Tamsulosin [Flomax] 1 tab PO BEDTIME 10/10/16 [History] glipiZIDE [Glucotrol] 1 tab PO BID 10/10/16 [History] Indomethacin [Indocin] 25 mg PO TID 10/24/16 [History] Insulin Glarg,Human.Rec.Analog [Lantus Solostar] 20 units SUBCNJ BEDTIME [History] Past Medical History HEENT History: Reports: Cataract, Impaired Vision Cardiovascular History: Reports: High Cholesterol, Hypertension, Stents Other Cardiovascular History: 5 stents Respiratory History: Reports: SOB, Other (See Below) Other Respiratory History: on inhaler Genitourinary History: Reports: Other (See Below) Other Genitourinary History: slow flow Musculoskeletal History: Reports: Other (See Below) Other Musculoskeletal History: post polio syndrome Endocrine/Metabolic History: Reports: Diabetes, Type II Oncologic (Cancer) History: Reports: Colon - Infectious Disease History Infectious Disease History: Reports: Other (See Below) Other Infectious Disease History: polio - Past Surgical History HEENT Surgical History: Reports: Cataract Surgery GI Surgical History: Reports: Colonoscopy, Other (See Below) Other GI Surgeries/Procedures: bowel resection Musculoskeletal Surgical History: Reports: Joint Replacement, Knee Replacement Other Musculoskeletal Surgeries/Procedures:: right knee Social & Family History - Tobacco Use Smoking Status *Q: Never Smoker Years of Tobacco use: 30 Packs/Tins Daily: 0.5 Used Tobacco, but Quit: Yes Month Tobacco Last Used: 30 years Second Hand Smoke Exposure: No - Caffeine Use Caffeine Use: Reports: Coffee - Recreational Drug Use Recreational Drug Use: No - Living Situation & Occupation Living situation: Reports: ( of 60 + years 7 years ago. Daughter this year from muscular dystrophy) Occupation: Disabled H&P Review of Systems - Review of Systems: Review Of Systems: See Below General: Reports: Malaise, Weakness, Fatigue HEENT: Reports: No Symptoms, Glasses, Other (natural teeth) Pulmonary: Reports: Shortness of Breath (chronic) Cardiovascular: Reports: Dyspnea on Exertion, Edema Gastrointestinal: Reports: No Symptoms Genitourinary: Reports: No Symptoms Musculoskeletal: Reports: Joint Pain (gout left ankle), Muscle Pain, Muscle Stiffness, Other (gout in left ankle ) Skin: Reports: Bruising (lower legs) Psychiatric: Reports: No Symptoms Neurological: Reports: Headache, Difficulty Walking, Weakness Hematologic/Lymphatic: Reports: No Symptoms Immunologic: Reports: No Symptoms Exam - Exam Exam: See Below - Vital Signs Vital Signs: Last Vital Signs Temp 36.9 C 10/24/16 17:23 Pulse 86 10/24/16 21:44 Resp 20 10/24/16 21:44 BP 140/81 10/24/16 21:44 Pulse Ox 96 10/24/16 21:44 Weight: 121.1 kg - Exam General: Alert, Oriented, 4 HEENT: PERRLA, Conjunctiva Clear, EACs Clear, EOMI, Hearing Intact, Mucosa Moist & [place], Nares Patent, Normal Nasal Septum, Posterior Pharynx Clear, Pupils Equal, Pupils Reactive, TMs Clear Neck: Supple, Trachea Midline Lungs: Clear to Auscultation, Normal Respiratory Effort Cardiovascular: Regular Rate, Regular Rhythm, Normal S1, Normal S2 GI/Abdominal Exam: Normal Bowel Sounds, Soft, Non-Tender, No Organomegaly (Male) Exam: Deferred Rectal (Males) Exam: Deferred Back Exam: Normal Inspection, Full Range of Motion Extremities: Normal Inspection, Normal Range of Motion, Non-Tender, No Pedal Edema, Normal Capillary Refill Skin: Ecchymosis (lower legs and forearms.) Neurological: Reflexes Equal Bilateral, Strength Equal Bilateral, Normal Speech , Normal Tone, Sensation Intact Neuro Extensive - Mental Status: Alert, Oriented x3, Normal Mood/Affect, Normal Cognition, Memory Intact Psychiatric: Alert, Normal Affect, Normal Mood - Patient Data Result Diagrams: 10/24/16 18:15 10/24/16 18:15 *Q Meaningful Use (ADM) - VTE *Q VTE Criteria *Q: - Stroke *Q Stroke Criteria *Q: - AMI *Q AMI Criteria *Q: - Problem List (1) Weakness SNOMED Code(s): 77498652 Status: Acute Priority: High Current Visit: Yes (2) Confusion SNOMED Code(s): 342639703 ICD Code: R41.0 - DISORIENTATION, UNSPECIFIED Status: Acute Priority: Low Current Visit: Yes Problem Details: resolved while in ER (3) CKD (chronic kidney disease) stage 4, GFR 15-29 ml/min SNOMED Code(s): 932643007 ICD Code: N18.4 - CHRONIC KIDNEY DISEASE, STAGE 4 (SEVERE) Status: Acute Priority: Medium Current Visit: No (4) Gout of left ankle SNOMED Code(s): 016916350 ICD Code: M10.9 - GOUT, UNSPECIFIED Status: Acute Priority: Medium Current Visit: No (5) Type 2 diabetes mellitus SNOMED Code(s): 35551392 ICD Code: E11.9 - TYPE 2 DIABETES MELLITUS WITHOUT COMPLICATIONS Status: Acute Priority: Medium Current Visit: No Qualifiers: Diabetes mellitus complication status: without complication Diabetes mellitus terminal carman insulin use: with long-term use Qualified Code(s): E11.9 - Type 2 diabetes mellitus without complications; Z79.4 - petroleum terminal plant operator (current) use of insulin Problem List Initiated/Reviewed/Updated: Yes Orders Last 24hrs: Active Orders 24 hr Category Date Time Status Patient Status [ADT] Routine ADT 10/24/16 22:59 Active Cardiac Monitoring [RC] .As Directed Care 10/24/16 22:59 Active Diabetes Education [RC] Click to Edit Care 10/24/16 22:59 Active Intake and Output [RC] QSHIFT Care 10/24/16 22:59 Active Oxygen Therapy [RC] PRN Care 10/24/16 22:59 Active RT Aerosol Therapy [RC] ASDIRECTED Care 10/24/16 22:59 Active Up With Assistance [RC] ASDIRECTED Care 10/24/16 22:59 Active VTE/DVT Education [RC] Per Unit Routine Care 10/24/16 22:59 Active Vital Signs [RC] Q4H Care 10/24/16 22:59 Active Consult to Case Management [CONS] Routine Cons 10/24/16 22:59 Active OT Evaluation and Treatment [CONS] Routine Cons 10/24/16 22:59 Active PT Evaluation and Treatment [CONS] Routine Cons 10/24/16 22:59 Active Consistent Carbohydrate Diet [DIET] Diet 10/24/16 Dinner Active BASIC METABOLIC PANEL,BMP [CHEM] AM Lab 10/25/16 05:11 Ordered CBC WITH AUTO DIFF [HEME] AM Lab 10/25/16 05:11 Ordered GLUCOSE POC LAB TO COLLECT [POC] QIDACANDBED Lab 10/25/16 07:30 Ordered Acetaminophen [Tylenol] Med 10/24/16 22:59 Active 650 mg PO Q4H PRN Albuterol [Proventil Neb Soln] Med 10/24/16 22:59 Active 2.5 mg NEB Q4H PRN Allopurinol [Zyloprim] Med 10/25/16 09:00 Active 100 mg PO DAILY Aspirin [Ecotrin] Med 10/25/16 09:00 Active 325 mg PO DAILY Bisacodyl [Dulcolax] Med 10/24/16 22:59 Active 5 mg PO DAILY PRN Cefdinir [Omnicef] Med 10/24/16 23:00 Active 300 mg PO BID Cholecalciferol (Vitamin D3) [Vitamin D3] Med 10/25/16 09:00 Active 2,000 units PO DAILY Citalopram [Celexa] Med 10/25/16 09:00 Active 20 mg PO DAILY Docusate Sodium [Colace] Med 10/24/16 22:59 Active 100 mg PO BID PRN Docusate Sodium/Sennosides [Senna Plus] Med 10/24/16 22:59 Active 1 tab PO BID PRN Enoxaparin [Lovenox] Med 10/25/16 09:00 Active 30 mg SUBCUT DAILY Ergocalciferol (Vitamin D2) [Vitamin D2] Med 10/24/16 23:00 Pending DOSE units PO ASDIRECTED Insulin Aspart [NovoLOG] Med 10/24/16 22:59 Active See Protocol SUBCUT ASDIRECTED Insulin Detemir [Levemir] Med 10/25/16 21:00 Active 20 unit SUBCUT BEDTIME LORazepam [Ativan] Med 10/24/16 22:59 Active 1 mg IV Q6H PRN Mometasone/Formoterol [Dulera 200-5 MCG] Med 10/25/16 09:00 Active 0 puff IH BID Morphine Med 10/24/16 22:59 Active 2 mg IVPUSH Q2H PRN Ondansetron [Zofran ODT] Med 10/24/16 22:59 Active 4 mg PO Q6H PRN Ondansetron [Zofran] Med 10/24/16 22:59 Active 4 mg IV Q4H PRN Pioglitazone [Actos] Med 10/25/16 09:00 Active 30 mg PO DAILY Pravastatin [Pravachol] Med 10/25/16 21:00 Active 40 mg PO BEDTIME Silver Sulfadiazine [Silvadene 1% Cream 400 GM] Med 10/25/16 09:00 Active 0 gm TOP DAILY Sodium Chloride 0.9% [Normal Saline] 1,000 ml Med 10/24/16 22:59 Active IV ASDIRECTED Tamsulosin [Flomax] Med 10/25/16 21:00 Active 0.4 mg PO BEDTIME Zolpidem [Ambien] Med 10/24/16 22:59 Active 5 mg PO BEDTIME PRN glipiZIDE [Glucotrol] Med 10/24/16 23:00 Active 5 mg PO BIDMEALS oxyCODONE Med 10/24/16 22:59 Active 5 mg PO Q4H PRN Resuscitation Status Routine Resus Stat 10/24/16 22:39 Ordered Medication Orders Acetaminophen (Tylenol) 650 mg PO Q4H PRN PRN Reason: Pain (Mild 1-3)/fever Albuterol (Proventil Neb Soln) 2.5 mg NEB Q4H PRN PRN Reason: Shortness Of Breath/wheezing Allopurinol (Zyloprim) 100 mg PO DAILY [facility] Aspirin (Ecotrin) 325 mg PO DAILY [facility]DEN Bisacodyl (Dulcolax) 5 mg PO DAILY PRN PRN Reason: Constipation Cefdinir (Omnicef) 300 mg PO BID JAYDEN Last Admin: 10/24/16 23:52 Dose: 300 mg Cholecalciferol (Vitamin D3) 2,000 units PO DAILY [facility] Citalopram Hydrobromide (Celexa) 20 mg PO DAILY [facility] Docusate Sodium (Colace) 100 mg PO BID PRN PRN Reason: Constipation Enoxaparin Sodium (Lovenox) 30 mg SUBCUT DAILY [facility] Ergocalciferol (Vitamin D2) units PO ASDIRECTED [facility] Glipizide (Glucotrol) 5 mg PO BIDMEALS [facility] Last Admin: 10/24/16 23:51 Dose: 5 mg Sodium Chloride (Normal Saline) 1,000 mls @ 100 mls/hr IV ASDIRECTED [facility] Insulin Aspart (Novolog) 0 unit SUBCUT ASDIRECTED [facility] PRN Reason: Protocol Last Admin: 10/24/16 23:49 Dose: 2 units Insulin Detemir (Levemir) 20 unit SUBCUT BEDTIME [facility] Lorazepam (Ativan) 1 mg IV Q6H PRN PRN Reason: Nausea/Vomiting Mometasone Furoate/Formoterol Fumar (Dulera 200-5 Mcg) 0 puff IH BID [facility] Morphine Sulfate (Morphine) 2 mg IVPUSH Q2H PRN PRN Reason: Pain (severe 7-10) Ondansetron HCl (Zofran Odt) 4 mg PO Q6H PRN PRN Reason: Nausea able to take PO Ondansetron HCl (Zofran) 4 mg IV Q4H PRN PRN Reason: Nausea/Vomiting Oxycodone HCl (Oxycodone) 5 mg PO Q4H PRN PRN Reason: Pain (moderate 4-6) Pioglitazone HCl (Actos) 30 mg PO DAILY [facility] Pravastatin Sodium (Pravachol) 40 mg PO BEDTIME [facility] Senna/Docusate Sodium (Senna Plus) 1 tab PO BID PRN PRN Reason: Constipation Silver Sulfadiazine (Silvadene 1% Cream 400 Gm) 0 gm TOP DAILY [facility] Tamsulosin HCl (Flomax) 0.4 mg PO BEDTIME [facility] Zolpidem Tartrate (Ambien) 5 mg PO BEDTIME PRN PRN Reason: Sleep Assessment/Plan Comment:: Assessment/Plan Comment:: 86-year-old male who still lives at home but is being taken care of by his children gets in-home occupational therapy and today he wasn't able to cooperate with therapy at his usual level, seemed confused, was not able to count past 13 and unable to understand the concept of counting backwards. He has also had a persistent headache for the past 2 weeks which is unusual for him , however no fevers or chills no nausea or vomiting, it does not seem to be interrupting his sleep. He has had some medication changes recently. Patient also mentioned he had some double vision and dizziness this morning. The patient himself is convinced it's his medicines. He now seems more lucid, is able to count backwards and forwards and is answering questions appropriately. Throughout this he has not developed any peripheral symptoms such as weakness or paresthesias. Onset: Gradual (Over the past 1-2 days) Severity: Moderate Associated Symptoms: Reports: Confusion, Headaches, Shortness of Breath. Denies : Chest Pain, Fever/Chills, Nausea/Vomiting. After further consideration and discussing the home situation with this gentleman it was decided that we should admit him for observation. From the description of the caregiver it sounds like he had a TIA with left-sided numbness of his left arm and left leg which cleared. He's having some dizziness upon arising and laying down in lives alone and is at risk for falls. PLAN Weakness/Confusion/TIA -Admit to [address] [place] [address] for further monitoring -monitor closely -IV fluids at 100ml/hr -am labs; cbc, bmp CKD stage 4 -continue home medications Diabetes type 2 -order insulin medium dose sliding scale -insulin order -labs POC blood glucose monitoring Maintenance issues -Orders home meds: -Nutrition: consistent carb diet -[place] catheter not indicated at this time -DVT: Lovenox 40 units subcut -PPI; po Protonix 40mg daily -consult OT for discharge planning -consult PT for strengthing. -consult to Supervisor Personnel Clerks; Correction Placement CODE STATUS: FULL Admission status: Admit Observation to ICU Med overflow Admission justification. Hospital level of care for over 2 midnights is not expected. Disposition; Correction Placement for acute rehab or home Primary care provider: Suleman Johnson CNP Hospitalist: Dr. Saini
[2016-10-25] MEDS: GLIPIZIDE 5 MG PO SCH (08:26)
[2016-10-25] MEDS: Cefdinir 300 MG Cap PO SCH (08:30)
[2016-10-25] MEDS ORDERED: Cholecalciferol (Vitamin D3) 1,000 Unit Tab PO SCH (09:00)
[2016-10-25] MEDS ORDERED: Aspirin 325 MG Tab.EC PO SCH (09:00)
[2016-10-25] MEDS ORDERED: PIOGLITAZONE 30 MG PO SCH (09:00)
[2016-10-25] MEDS ORDERED: Enoxaparin 30 MG/0.3 ML Syringe SUBCUT SCH (09:00)
[2016-10-25] MEDS ORDERED: Formoterol/Mometasone 200-5 MCG 8.8 GM Inhaler IH SCH (09:00)
[2016-10-25] MEDS ORDERED: Allopurinol 100 MG Tab*POM PO SCH (09:00)
[2016-10-25] MEDS ORDERED: CITALOPRAM 20 MG PO SCH (09:00)
[2016-10-25] MEDS ORDERED: Silver Sulfadiazine 1% Crm 50 GM Tube TOP SCH (09:00)
--- NOTE | 2016-10-25 12:04 | MR ---
Brain wo Cont HISTORY: Headache and confusion. COMPARISON: None TECHNIQUE: The brain was imaged in the axial, sagittal, and coronal planes utilizing T1, gradient ec ho, T2, FLAIR, and diffusion-weighted techniques. FINDINGS:There are a few scattered foci of signal hyperintensity involving the deep white matter on the long TR sequences. There is no associated mass effect or edema. 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 There are no space-occupying lesio ns. There is no hemorrhage, mass effect, or edema. Diffusion-weighted images demonstrate no findings for acute ischemia. The orbital structures appear unremarkable. There are no significant inflammato ry changes of the sinuses. Normal appearing flow voids are demonstrated throughout the cerebral vasc ulature. IMPRESSION 1. Age-related involutional changes of the brain. 2. No acute intracranial abnormalities are demonstrated.
[2016-10-25] MEDS: Insulin Aspart 100 Units/ML 3 ML Pen SUBCUT SCH (12:39)
[2016-10-25 13:33] VITALS: BP 142/71
--- NOTE | 2016-10-25 13:33 | PCM.DCSUM1 ---
Discharge Summary - Hospital Course Brief History: Mr. Silva is an 86-year-old gentleman who was admitted through the emergency department to observation status for further evaluation and management of dizziness and transient paresthesias of the left upper extremity. - Discharge Data Discharge Date: 10/25/16 Discharge Disposition: Home, W Home Health Agency 06 Condition: Fair - Discharge Diagnosis/Problem(s) (1) Benign positional vertigo SNOMED Code(s): 822465874 ICD Code: H81.10 - BENIGN PAROXYSMAL VERTIGO, UNSPECIFIED EAR Status: Acute Current Visit: Yes (2) Weakness SNOMED Code(s): 66640911 ICD Code: R53.1 - WEAKNESS Status: Acute Priority: High Current Visit: Yes (3) Type 2 diabetes mellitus SNOMED Code(s): 77678029 ICD Code: E11.9 - TYPE 2 DIABETES MELLITUS WITHOUT COMPLICATIONS Status: Chronic Priority: Medium Current Visit: No Qualifiers: Diabetes mellitus complication status: without complication Diabetes mellitus alf insulin use: with alf use Qualified Code(s): E11.9 - Type 2 diabetes mellitus without complications; Z79.4 - terminal manager (current) use of insulin (4) CKD (chronic kidney disease) stage 4, GFR 15-29 ml/min SNOMED Code(s): 412049939 ICD Code: N18.4 - CHRONIC KIDNEY DISEASE, STAGE 4 (SEVERE) Status: Chronic Priority: Medium Current Visit: No - Patient Summary/Data Consults: Consultations 10/24/16 22:59 Consult to Case Management [CONS] Routine Comment: Physician Instructions: Quantity: Reason for Consult: N H placement, 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 OT Reason for Consult: Discharge Planning This query below is only for informational purposes and is not editable. PT Evaluation and Treatment [CONS] Routine Please Evaluate and Treat. PT Reason for Consult: Strengthening This query below is only for informational purposes and is not editable. Hospital Course: Mr. Silva is an 86-year-old gentleman who reports a history of dizziness or vertigo over the past 3 weeks. He notes symptoms of dizziness in the morning when he gets out of bed that last for less than a minute and then resolve and similar symptoms when he gets into bed in the evening. Occasionally will have intermittent symptoms through the day. Symptoms have not been continuous and have been only associated with head movement. Yesterday he reported to his occupational therapist that he noted some numbness in his left hand.this is something that he is noted regularly over the past several months occurring in the morning after he wakes up, typically symptoms will resolve after a very short period of time. The difference yesterday was that the symptoms lasted longer. This seems to be very consistent with a nerve impingement that occurs at night, likely that the impingement yesterday was more severe and lasted longer than it had previously. CT scan was obtained in the emergency department and showed no acute findings. MRI was obtained on the day of discharge and also showed no acute abnormalities. Will continue with home physical therapy and occupational therapy as well as home health care. Activity will be as tolerated and he will continue his usual diet. Follow-up appointment will be scheduled with his primary care provider within one week. Expect that his symptoms of benign positional vertigo should improve over the next few weeks. - Patient Instructions Diet: Diabetic Diet Activity: As Tolerated Other/Special Instructions: Please schedule follow-up appointment with primary care provider within one week. - Discharge Plan Home Medications: Home Meds Albuterol [Proventil HFA] 2 puff INH Q4H PRN 10/10/16 [History] Allopurinol [Zyloprim] 1 tab PO DAILY 10/10/16 [History] Aspirin [Ecotrin] 1 tab PO DAILY 10/10/16 [History] Budesonide/Formoterol [Symbicort 160-4.5 MCG] 2 puff INH BID 10/10/16 [History] Cholecalciferol (Vitamin D3) [Vitamin D3] 1 tab PO DAILY 10/10/16 [History] Citalopram [Citalopram HBr] 1 tab PO DAILY 10/10/16 [History] Ergocalciferol (Vitamin D2) [Vitamin D2] 1 tab PO ASDIRECTED 10/10/16 [History] Pioglitazone [Actos] 1 tab PO QAM 10/10/16 [History] Pravastatin [Pravachol] 1 tab PO BEDTIME 10/10/16 [History] Silver Sulfadiazine [Silvadene 1% Cream 20 GM] 1 applic TOP DAILY 10/10/16 [ History] Tamsulosin [Flomax] 1 tab PO BEDTIME 10/10/16 [History] glipiZIDE [Glucotrol] 1 tab PO BID 10/10/16 [History] Indomethacin [Indocin] 25 mg PO TID 10/24/16 [History] Insulin Glarg,Human.Rec.Analog [Lantus Solostar] 20 units SUBCNJ BEDTIME [History] Referrals: Suleman Johnson, DAIRY CLERK [Primary Care Provider] - - Patient Data Vitals - Most Recent: Last Vital Signs Temp 98.6 F 10/25/16 08:11 Pulse 86 10/24/16 21:44 Resp 16 10/25/16 08:11 BP 162/86 H 10/25/16 08:11 Pulse Ox 98 10/25/16 08:11 Weight - Most Recent: 266 lb 15.677 oz I&O - Last 24 hours: Intake & Output 10/24/16 10/25/16 10/25/16 22:59 06:59 14:59 Intake Total 1637 Output Total 775 Balance 862 Lab Results - Last 24 hrs: Laboratory Results - last 24 hr 10/25/16 10/25/16 Range/Units 05:23 05:23 WBC 8.2 (4.5-11.0) K/uL RBC 3.78 L (4.30-5.90) M/uL Hgb 11.0 L (12.0-15.0) g/dL Hct 34.6 L (40.0-54.0) % MCV 92 (80-98) fL MCH 29 (27-31) pg MCHC 32 (32-36) % Plt Count 213 (150-400) K/uL Neut % (Auto) 69 H (36-66) % Lymph % (Auto) 11 L (24-44) % Bacon % (Auto) 16 H (2-6) % Eos % (Auto) 4 (2-4) % Baso % (Auto) 1 (0-1) % Sodium 138 L (140-148) mmol/L Potassium 4.5 (3.6-5.2) mmol/L Chloride 103 (100-108) mmol/L Carbon Dioxide 31 (21-32) mmol/L Anion Gap 8.5 (5.0-14.0) mmol/L BUN 40 H (7-18) mg/dL Creatinine 2.2 H (0.8-1.3) mg/dL Est Cr Clr Drug Dosing 27.43 mL/min Estimated GFR (MDRD) 29 L (>60) Glucose 205 H (74-106) mg/dL Calcium 8.4 L (8.5-10.1) mg/dL Med Orders - Current: Current Medications Acetaminophen (Tylenol) 650 mg PO Q4H PRN PRN Reason: Pain (Mild 1-3)/fever Albuterol (Proventil Neb Soln) 2.5 mg NEB Q4H PRN PRN Reason: Shortness Of Breath/wheezing Allopurinol (Zyloprim) 100 mg PO DAILY [facility] Last Admin: 10/25/16 08:33 Dose: 100 mg Aspirin (Ecotrin) 325 mg PO DAILY [facility] Last Admin: 10/25/16 08:29 Dose: 325 mg Bisacodyl (Dulcolax) 5 mg PO DAILY PRN PRN Reason: Constipation Cholecalciferol (Vitamin D3) 2,000 units PO DAILY [facility] Last Admin: 10/25/16 08:32 Dose: 2,000 units Citalopram Hydrobromide (Celexa) 20 mg PO DAILY [facility] Last Admin: 10/25/16 08:27 Dose: 20 mg Docusate Sodium (Colace) 100 mg PO BID PRN PRN Reason: Constipation Enoxaparin Sodium (Lovenox) 30 mg SUBCUT DAILY [facility] Last Admin: 10/25/16 08:30 Dose: 30 mg Ergocalciferol (Vitamin D2) units PO ASDIRECTED [facility] Glipizide (Glucotrol) 5 mg PO BIDMEALS [facility] Last Admin: 10/25/16 08:26 Dose: 5 mg Sodium Chloride (Normal Saline) 1,000 mls @ 100 mls/hr IV ASDIRECTED [facility] Last Admin: 10/25/16 00:15 Dose: 100 mls/hr Insulin Aspart (Novolog) 0 unit SUBCUT ASDIRECTED [facility] PRN Reason: Protocol Last Admin: 10/25/16 12:39 Dose: 4 units Lorazepam (Ativan) 1 mg IV Q6H PRN PRN Reason: Nausea/Vomiting Mometasone Furoate/Formoterol Fumar (Dulera 200-5 Mcg) 0 puff IH BID [facility] Last Admin: 10/25/16 08:35 Dose: Not Given Morphine Sulfate (Morphine) 2 mg IVPUSH Q2H PRN PRN Reason: Pain (severe 7-10) Lantus Solostar *Pom (*) 0 each SUBCUT BEDTIME [facility] Pioglitazone 30mg * (Pom*) 1 each PO DAILY [facility] Last Admin: 10/25/16 08:30 Dose: 1 each Pravastatin 40mg * (Pom*) 1 each PO BEDTIME [facility] Ondansetron HCl (Zofran Odt) 4 mg PO Q6H PRN PRN Reason: Nausea able to take PO Ondansetron HCl (Zofran) 4 mg IV Q4H PRN PRN Reason: Nausea/Vomiting Oxycodone HCl (Oxycodone) 5 mg PO Q4H PRN PRN Reason: Pain (moderate 4-6) Senna/Docusate Sodium (Senna Plus) 1 tab PO BID PRN PRN Reason: Constipation Silver Sulfadiazine (Silvadene 1% Cream 50 Gm) 0 gm TOP DAILY [facility] Last Admin: 10/25/16 08:31 Dose: Not Given Tamsulosin HCl (Flomax) 0.4 mg PO BEDTIME [facility] Zolpidem Tartrate (Ambien) 5 mg PO BEDTIME PRN PRN Reason: Sleep Discontinued Medications Cefdinir (Omnicef) 300 mg PO BID [facility] Last Admin: 10/25/16 08:30 Dose: 300 mg Sodium Chloride (Normal Saline) 1,000 mls @ 500 mls/hr IV ASDIRECTED [facility] Last Admin: 10/24/16 19:04 Dose: 500 mls/hr *Q Meaningful Use (DIS) - VTE *Q VTE Criteria *Q: - Stroke *Q Stroke Criteria *Q: - AMI *Q AMI Criteria *Q:
[2016-10-25] MEDS ORDERED: LANTUS SUBCUT SCH (21:00)
[2016-10-25] MEDS ORDERED: PRAVASTATIN 40 MG PO SCH (21:00)
[2016-10-25] MEDS ORDERED: Tamsulosin 0.4 MG Cap.ER*POM PO SCH (21:00)
== END 2016-10-25 14:33 | disposition home health service (06) ==
LOC: JP.ED 16:55 → JP.ICU 22:38
PROVIDERS: ADMIT Hospitalist; ATTEND Hospitalist
DX: H81.10 Benign paroxysmal vertigo, unspecified ear (principal); R53.1 Weakness; E78.00 Pure hypercholesterolemia, unspecified; E11.22 Type 2 diabetes mellitus with diabetic chronic kidney disease; I12.9 Hypertensive chronic kidney disease with stage 1 through stage 4 chronic kidney disease, or unspecified chronic kidney disease; N18.4 Chronic kidney disease, stage 4 (severe); Z79.4 Long term (current) use of insulin; Z79.82 Long term (current) use of aspirin; Z79.899 Other long term (current) drug therapy; Z95.5 Presence of coronary angioplasty implant and graft; Z96.651 Presence of right artificial knee joint; Z98.890 Other specified postprocedural states
CPT/HCPCS: 36415; 70450; 70551; 80048; 81001; 85025; 96360; 96361; 97162; 97530; 99285; A9270; J1650; J7040; 82962; 96372; 99217; 99219; 99284; G0378

== ENCOUNTER 2017-04-12 11:15 | Emergency (ER) | payer MEDICARE, OTHER ==
--- NOTE | 2017-04-12 12:03 | EDM.PDOC ---
ED HPI GENERAL MEDICAL PROBLEM - General Chief Complaint: Syncope Stated Complaint: MED[facility] Time Seen by Provider: 04/12/17 11:51 Source of Information: Reports: Patient, Old Records, RN Notes Reviewed History Limitations: Reports: No Limitations - History of Present Illness INITIAL COMMENTS - FREE TEXT/NARRATIVE: 86-year-old gentleman presents emergency department day via EMS services from the alf, had a syncopal event earlier this morning when he was going to the bathroom he collapsed on the commode did not fall off the commode EMS services found he was hypoxic in the mid 80s he did respond to oxygen at this time he denies any shortness of breath or chest pain he does admit to depression , he does have a similar event about 3 weeks ago where he collapsed at [facility] he states he had a workup that included image studies of the head, we' ll try and obtain those records - Related Data Allergies Allergy/AdvReac Type Severity Reaction Status Date / Time No Known Allergies Allergy Verified 04/12/17 11:41 Home Meds: Home Meds Allopurinol [Zyloprim] 1 tab PO DAILY 10/10/16 [History] Aspirin [Ecotrin] 1 tab PO DAILY 10/10/16 [History] Budesonide/Formoterol [Symbicort 160-4.5 MCG] 2 puff INH BID 10/10/16 [History] Cholecalciferol (Vitamin D3) [Vitamin D3] 1 tab PO DAILY 10/10/16 [History] Ergocalciferol (Vitamin D2) [Vitamin D2] 1 tab PO ASDIRECTED 10/10/16 [History] Pravastatin [Pravachol] 1 tab PO DAILY 10/10/16 [History] Tamsulosin [Flomax] 1 tab PO BEDTIME 10/10/16 [History] Acetaminophen [Pain Relief] 650 mg PO TID 04/12/17 [History] Cyanocobalamin (Vitamin B-12) [Vitamin B-12] 1,000 mcg PO DAILY 04/12/17 [ History] Furosemide [Lasix] 20 mg PO DAILY 04/12/17 [History] Insulin Aspart [NovoLOG] 14 unit SQ WITHMEALSANDBED 04/12/17 [History] Insulin Glarg,Human.Rec.Analog [Lantus] 20 unit SUBCUT BEDTIME 04/12/17 [History ] Isosorbide Mononitrate [Isosorbide Mononitrate ER] 30 mg PO DAILY 04/12/17 [ History] Nitrofurantoin Monohyd/M-Cryst [Macrobid 100 mg Capsule] 100 mg PO BID 04/12/17 [History] Polyethylene Glycol 3350 [MiraLAX] 17 gm PO DAILY 04/12/17 [History] Potassium Chloride 10 meq PO DAILY 04/12/17 [History] Sertraline HCl [Sertraline HCl] 100 mg PO DAILY 04/12/17 [History] amLODIPine [Norvasc] 2.5 mg PO DAILY 04/12/17 [History] Past Medical History HEENT History: Reports: Cataract, Impaired Vision Cardiovascular History: Reports: Arrhythmia, CAD, High Cholesterol, Hypertension , Stents Other Cardiovascular History: 5 stents Respiratory History: Reports: COPD, SOB, Other (See Below) Other Respiratory History: on inhaler Genitourinary History: Reports: Prostate Disorder, Other (See Below) Other Genitourinary History: slow flow Musculoskeletal History: Reports: Other (See Below) Other Musculoskeletal History: post polio syndrome Psychiatric History: Reports: Anxiety Endocrine/Metabolic History: Reports: Diabetes, Type II, Obesity/BMI 30+ Oncologic (Cancer) History: Reports: Colon Dermatologic History: Reports: Other (See Below) Other Dermatologic History: age spots, - Infectious Disease History Infectious Disease History: Reports: Other (See Below) Other Infectious Disease History: polio - Past Surgical History HEENT Surgical History: Reports: Cataract Surgery GI Surgical History: Reports: Colonoscopy, Other (See Below) Other GI Surgeries/Procedures: bowel resection Musculoskeletal Surgical History: Reports: Joint Replacement, Knee Replacement Other Musculoskeletal Surgeries/Procedures:: right knee Social & Family History - Tobacco Use Smoking Status *Q: Former Smoker Years of Tobacco use: 30 Packs/Tins Daily: 0.5 Used Tobacco, but Quit: Yes Month Tobacco Last Used: 30 yrs Second Hand Smoke Exposure: No - Caffeine Use Caffeine Use: Reports: Coffee - Recreational Drug Use Recreational Drug Use: No - Living Situation & Occupation Living situation: Reports: ( of 60 + years 7 years ago. Daughter this year from muscular dystrophy) Occupation: Disabled ED ROS GENERAL - Review of Systems Review Of Systems: See Below Constitutional: Reports: No Symptoms HEENT: Reports: No Symptoms Respiratory: Reports: No Symptoms Cardiovascular: Reports: Syncope GI/Abdominal: Reports: No Symptoms : Reports: No Symptoms Musculoskeletal: Reports: No Symptoms Skin: Reports: No Symptoms Neurological: Reports: No Symptoms - Physical Exam Exam: See Below Text/Narrative:: General: Male, not in any distress, alert and oriented x3 HEENT: head is atraumatic normocephalic, eyes pupils equal round reactive to light, sclera clear no conjunctivitis appreciated. Ears hearing aids in place bilaterally. Nose no septal deviation, nares are clear, no blood present. Mouth mucosa is moist and pink no erythema or exudate noted in soft palate, tongue is midline uvula is midline, dentition is intact. Neck: Supple no thyromegaly no tracheal deviation. Nodes: Cervical nodes subclavicular nodes nontender no palpable lymphadenopathy noted. Lungs: clear to auscultation bilaterally with symmetrical respirations, no adventitious noise appreciated. CV: Regular rate and rhythm S1 and S2 appreciated no murmurs rubs or gallops noted. Abdomen: Soft, nontender, no palpable masses or organomegaly appreciated, no distention no guarding bowel sounds are present . Neuro: Cranial nerves II through XII grossly intact Skin: Warm and dry, intact Extremities: No lower extremity edema appreciated, pedal pulse is +2. Course - Vital Signs Last Recorded V/S: Last Vital Signs Temp 98.8 F 04/12/17 11:37 Pulse 92 04/12/17 15:49 Resp 26 H 04/12/17 15:49 BP 145/72 H 04/12/17 15:49 Pulse Ox 91 L 04/12/17 15:49 - Orders/Labs/Meds Orders: Active Orders 24 hr Category Date Time Status EKG Documentation Completion [RC] ASDIRECTED Care 04/12/17 11:57 Active Chest 1V Frontal [CR] Urgent Exams 04/12/17 13:21 Taken Chest wo Cont [CT] Stat Exams 04/12/17 14:50 Taken EKG 12 Lead [EK] Stat Ther 04/12/17 11:57 Ordered Labs: Laboratory Tests 04/12/17 04/12/17 04/12/17 Range/Units 12:13 12:13 12:13 WBC 18.9 H (4.5-11.0) K/uL RBC 3.87 L (4.30-5.90) M/uL Hgb 11.4 L (12.0-15.0) g/dL Hct 34.7 L (40.0-54.0) % MCV 90 (80-98) fL MCH 30 (27-31) pg MCHC 33 (32-36) % Plt Count 222 (150-400) K/uL Neut % (Auto) 78 H (36-66) % Lymph % (Auto) 6 L (24-44) % Boyle % (Auto) 15 H (2-6) % Eos % (Auto) 1 L (2-4) % Baso % (Auto) 0 (0-1) % D-Dimer, Quantitative 547 H (0.0-400.0) ng/mL Sodium 141 (140-148) mmol/L Potassium 3.8 (3.6-5.2) mmol/L Chloride 102 (100-108) mmol/L Carbon Dioxide 30 (21-32) mmol/L Anion Gap 9.5 (5.0-14.0) mmol/L BUN 33 H (7-18) mg/dL Creatinine 2.0 H (0.8-1.3) mg/dL Est Cr Clr Drug Dosing 29.28 mL/min Estimated GFR (MDRD) 32 L (>60) Glucose 263 H (74-106) mg/dL Lactic Acid (0.4-2.0) mmol/L Calcium 8.5 (8.5-10.1) mg/dL 04/12/17 Range/Units 14:32 WBC (4.5-11.0) K/uL RBC (4.30-5.90) M/uL Hgb (12.0-15.0) g/dL Hct (40.0-54.0) % MCV (80-98) fL MCH (27-31) pg MCHC (32-36) % Plt Count (150-400) K/uL Neut % (Auto) (36-66) % Lymph % (Auto) (24-44) % Boyle % (Auto) (2-6) % Eos % (Auto) (2-4) % Baso % (Auto) (0-1) % D-Dimer, Quantitative (0.0-400.0) ng/mL Sodium (140-148) mmol/L Potassium (3.6-5.2) mmol/L Chloride (100-108) mmol/L Carbon Dioxide (21-32) mmol/L Anion Gap (5.0-14.0) mmol/L BUN (7-18) mg/dL Creatinine (0.8-1.3) mg/dL Est Cr Clr Drug Dosing mL/min Estimated GFR (MDRD) (>60) Glucose (74-106) mg/dL Lactic Acid 2.2 H (0.4-2.0) mmol/L Calcium (8.5-10.1) mg/dL Departure - Departure Time of Disposition: 16:43 Disposition: Home, Self-Care 01 Condition: Fair Clinical Impression: Vasovagal syncope - Discharge Information Referrals: PCP,None [Primary Care Provider] - Forms: ED Department Discharge Additional Instructions: Resume regular medications, recommend following up with pulmonary medicine for further evaluation of the left upper lobe of your lung, call return to the emergency department worsening of symptoms - My Orders Last 24 Hours: My Active Orders 04/12/17 11:57 EKG Documentation Completion [RC] ASDIRECTED EKG 12 Lead [EK] Stat 04/12/17 13:21 Chest 1V Frontal [CR] Urgent 04/12/17 14:50 Chest wo Cont [CT] Stat - Assessment/Plan Last 24 Hours: My Active Orders 04/12/17 11:57 EKG Documentation Completion [RC] ASDIRECTED EKG 12 Lead [EK] Stat 04/12/17 13:21 Chest 1V Frontal [CR] Urgent 04/12/17 14:50 Chest wo Cont [CT] Stat Plan: Assessment Acuity = acute Site and laterality = syncopal event complicated patient with recurrent urinary tract infection history of vasovagal episodes remote history of tobacco use Etiology = probable vasovagal while going to the bathroom Manifestations = none Location of injury = Home Lab values = WBC elevated 18.9 consistent leukocytosis hemoglobin low 11.4 consistent normochromic anemia d-dimer elevated 547 of unclear significance creatinine elevated 2.0 consistent with chronic renal failure stage G IIIB glucose elevated 263 consistent hyperglycemia lactic acid elevated at 2.2 consistent lactic acidosis mild CT scan does show a spiculated lesion in the left upper lobe of unclear significance Plan I did review lab work CT scan results with him, plan for him to follow-up with pulmonary medicine to reevaluate the spiculated lesion in the left upper lobe This note was dictated using [employer] voice recognition software please call with any questions on syntax or clarke.
[2017-04-12 15:52] VITALS: BP 145/72
--- NOTE | 2017-04-14 09:19 | CR ---
Portable chest There is mild elevation of the right hemidiaphragm. There is right basilar atelectasis. The heart and vascular structures are within normal limits. There are no infiltrates or effusions. Impression: 1. No acute findings.
== END 2017-04-12 17:07 | disposition home or self-care (01) ==
LOC: JP.ED 11:15
DX: R55 Syncope and collapse (principal); E78.00 Pure hypercholesterolemia, unspecified; I10 Essential (primary) hypertension; Z79.4 Long term (current) use of insulin; J44.9 Chronic obstructive pulmonary disease, unspecified; Z79.899 Other long term (current) drug therapy; Z79.82 Long term (current) use of aspirin; Z87.891 Personal history of nicotine dependence
CPT/HCPCS: 36415; 71045; 71045-26; 71250; 80048; 83605; 85025; 85379; 87804; 93005; 93010; 99284; 99285-25

== ENCOUNTER 2017-05-06 07:50 | Day surgery (SDC) | payer MEDICARE, OTHER ==
[2017-05-06] MEDS: Dexamethasone 4 MG/ML 5 ML MDV ONE ×2 (07:13→10:01)
[2017-05-06] MEDS: Povidone-Iodine 10% Soln 118.25 ML Bottle ONE ×2 (07:14→10:02)
[~2017-05-06 07:50] MED LIST: Bupivacaine 0.5% 30 ML SDV ONE; Lidocaine 0.5% 50 ML SDV ONE; Midazolam 1 MG/ML 2 ML SDV ONE; Propofol 200 MG/20 ML SDV ONE; fentaNYL 100 MCG/2 ML SDV ONE
[2017-05-06] MEDS ORDERED: Lactated Ringers 1,000 ML IV SCH (08:30)
[2017-05-06] MEDS ORDERED: ceFAZolin 2 GM in Premix Bag 1 BAG IV ONE (08:30)
[2017-05-06 13:30] VITALS: BP 123/69
--- NOTE | 2017-05-06 16:17 | OR ---
DATE OF PROCEDURE: 05/06/2017 PREOPERATIVE DIAGNOSIS: Left carpal tunnel syndrome. POSTOPERATIVE DIAGNOSIS: Left carpal tunnel syndrome. PROCEDURE: Left carpal tunnel release. ENTRY TABLE OPERATOR: SUMAN Truong. Physician entry level administrative assistant, Valeri Kumar NP, played an essential role in assisting in this case, helping to position the patient, retract structures as needed, as well as suturing and cutting sutures as indicated. Her presence improved patients safety and decreased operative time. ANESTHESIA: MAC local. ESTIMATED BLOOD LOSS: 25 mL. COMPLICATIONS: None. SPECIMEN: None. DISCHARGE DISPOSITION: Stable to PACU. INDICATION FOR THE PROCEDURE: The patient was seen preoperatively in the clinic. He had failed nonoperative treatment. Risks and benefits of the procedure were explained to the patient. Informed consent was obtained. DETAILS OF PROCEDURE: The patient was seen preoperatively by myself and the anesthesia staff in the preop holding area where the operative site was marked. He was brought to the operative suite by Anesthesia staff where MAC local anesthesia was then administered. He had the left upper extremity prepped and draped in a sterile manner after placing a well- padded tourniquet on the left arm. A time-out was called identifying the correct patient, correct procedure, the correct site, and antibiotics had begun with appropriate period of time. I infiltrated with 10 mL of 0.5% Marcaine without epinephrine, and then made an incision just proximal to the first metacarpal in line with the radial border of the 4th digit, extended about 1.5 cm proximally. I then controlled some bleeders with bipolar electrocautery. We did have a venous tourniquet. I used a self-retaining retractor and then divided the transverse carpal ligament with a 15 blade. I then undermined the deep palmar fascia proximally and distally with Metzenbaums, and then under direct visualization using a Ragnell, released the deep palmar fascia proximally and distally to the transverse carpal ligament. The nerve was very harris looking and edematous. We then irrigated with saline and closed with 3-0 nylon followed by a sterile dressing. The patient was then allowed to awaken from conscious sedation and taken to the PACU in stable condition. Rosendo Cardona DO /[id number]
== END 2017-05-06 13:00 | disposition home or self-care (01) ==
LOC: JP.SDS 07:50
PROVIDERS: ATTEND Orthopaedic Surgery
DX: G56.02 Carpal tunnel syndrome, left upper limb (principal); I25.10 Atherosclerotic heart disease of native coronary artery without angina pectoris; E78.00 Pure hypercholesterolemia, unspecified; I10 Essential (primary) hypertension; J44.9 Chronic obstructive pulmonary disease, unspecified; K59.09 Other constipation; F41.9 Anxiety disorder, unspecified; E11.9 Type 2 diabetes mellitus without complications; E66.9 Obesity, unspecified; Z68.30 Body mass index [BMI] 30.0-30.9, adult; Z87.891 Personal history of nicotine dependence; Z79.4 Long term (current) use of insulin; Z79.82 Long term (current) use of aspirin; Z79.899 Other long term (current) drug therapy
CPT/HCPCS: 64721; 82962; A9270; J1100; J2250; J2704; J3010; J7120

== ENCOUNTER 2017-12-25 11:35 | Emergency (ER) | payer MEDICARE, OTHER ==
--- NOTE | 2017-12-25 12:12 | EDM.PDOC ---
ED HPI GENERAL MEDICAL PROBLEM - General Chief Complaint: General Stated Complaint: MENTAL STATUS Time Seen by Provider: 12/25/17 11:55 Source of Information: Reports: Family, Old Records, RN History Limitations: Reports: Other (patient not helpful for history, confused) - History of Present Illness INITIAL COMMENTS - FREE TEXT/NARRATIVE: 87 yo male is brought in by EMS for a sharp increase in frequency of mostly visual hallucinations. His provider thought it might be from the codeine he was on so this was stopped yesterday and since then things have only worsened. No fevers. No recent stressors. Was put on Wellbutrin recently. Has COPD but is not smoking. Eating OK. Not sleeping since the hallucinations increased. Onset: Gradual Onset Date: 12/24/17 Duration: Day(s):, Getting Worse Location: Reports: Head Quality: Reports: Other (no reported pain) Severity: Moderate Improves with: Reports: None Worsens with: Reports: Other (? time) Context: Reports: Other (See HPI) Associated Symptoms: Reports: Confusion Treatments GLOBAL CEO: Reports: Other (see below) (codiene held without benefit) Bilateral Pain Score (Numeric/FACES): 10 - Related Data Allergies Allergy/AdvReac Type Severity Reaction Status Date / Time No Known Allergies Allergy Verified 05/06/17 08:04 Home Meds: Home Meds Allopurinol [Zyloprim] 200 mg PO DAILY 10/10/16 [History] Budesonide/Formoterol [Symbicort 160-4.5 MCG] 2 puff INH BID 10/10/16 [History] Ergocalciferol (Vitamin D2) [Vitamin D2] 50,000 units PO .Mondays10/10/16 [ History] Pravastatin [Pravachol] 40 mg PO DAILY 10/10/16 [History] Acetaminophen [Pain Relief] 650 mg PO QID 04/12/17 [History] Cyanocobalamin (Vitamin B-12) [Vitamin B-12] 1,000 mcg PO DAILY 04/12/17 [ History] Insulin Aspart [NovoLOG] 3 - 11 unit SQ TIDMEALS 04/12/17 [History] Insulin Glarg,Human.Rec.Analog [Lantus] 27 unit SUBCUT BEDTIME 04/12/17 [History ] Isosorbide Mononitrate [Isosorbide Mononitrate ER] 30 mg PO DAILY 04/12/17 [ History] Sertraline HCl 100 mg PO DAILY 04/12/17 [History] Albuterol Sulfate [Proair Respiclick] 2 puff INH Q4H PRN 04/14/17 [History] Aspirin [Halfprin] 81 mg PO BEDTIME 04/14/17 [History] Albuterol [Proventil] 1 inh INH Q4H PRN 05/02/17 [History] Furosemide [Lasix] 20 mg PO DAILY 05/06/17 [History] Potassium Chloride 10 meq PO DAILY 05/06/17 [History] Tamsulosin [Flomax] 0.4 mg PO BEDTIME 05/06/17 [History] Past Medical History HEENT History: Reports: Cataract, Impaired Vision Other HEENT History: L carpel tunnel Cardiovascular History: Reports: Arrhythmia, CAD, High Cholesterol, Hypertension , Stents Other Cardiovascular History: 5 stents Respiratory History: Reports: Asthma, COPD, SOB, Other (See Below) Other Respiratory History: on inhaler Gastrointestinal History: Reports: Chronic Constipation Genitourinary History: Reports: Prostate Disorder, UTI, Recurrent, Other (See Below) Other Genitourinary History: slow flow Musculoskeletal History: Reports: Other (See Below) 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/17 Neurological History: Reports: TIA, Other (See Below) Other Neuro History: "passes out episodes-no diagnosis from MRI,CT" Psychiatric History: Reports: Anxiety, Dementia Endocrine/Metabolic History: Reports: Diabetes, Type II, IDDM, Obesity/BMI 30+, Vitamin D Deficiency Hematologic History: Reports: B12 Deficiency Immunologic History: Reports: None Oncologic (Cancer) History: Reports: Colon Dermatologic History: Reports: Other (See Below) Other Dermatologic History: age spots, - Infectious Disease History Infectious Disease History: Reports: Chicken Pox, Measles, Mumps Other Infectious Disease History: polio - Past Surgical History Head Surgeries/Procedures: Reports: None HEENT Surgical History: Reports: Cataract Surgery, Tonsillectomy Cardiovascular Surgical History: Reports: Coronary Artery Stent Respiratory Surgical History: Reports: None GI Surgical History: Reports: Colonoscopy, Hernia, Abdominal Endocrine Surgical History: Reports: None Neurological Surgical History: Reports: None Musculoskeletal Surgical History: Reports: Joint Replacement, Knee Replacement Other Musculoskeletal Surgeries/Procedures:: right knee Oncologic Surgical History: Reports: None Dermatological Surgical History: Reports: None Social & Family History - Family History Family Medical History: Noncontributory - Tobacco Use Smoking Status *Q: Never Smoker - Caffeine Use Caffeine Use: Reports: None - Recreational Drug Use Recreational Drug Use: No - Living Situation & Occupation Living situation: Reports: ( of 60 + years 7 years ago. Daughter this year from muscular dystrophy) Occupation: Disabled ED ROS GENERAL - Review of Systems Review Of Systems: See Below Constitutional: Reports: No Symptoms HEENT: Reports: Eye Discharge (chronic and slightly worse recently.) Respiratory: Reports: Cough (chronic) Cardiovascular: Reports: No Symptoms GI/Abdominal: Reports: No Symptoms : Reports: Incontinence (some post urination dribbling that is chronic) Musculoskeletal: Reports: No Symptoms Skin: Reports: No Symptoms Neurological: Reports: Confusion (mild) Psychiatric: Reports: Hallucinations ED EXAM, GENERAL - Physical Exam Exam: See Below Exam Limited By: No Limitations General Appearance: Alert, WD/WN, No Apparent Distress Eye Exam: Bilateral Eye: Other (some occular crusting bilat.) Ears: Normal External Exam, Normal Canal, Hearing Grossly Normal Ear Exam: Bilateral Ear: Auricle Normal, Canal Normal Nose: Normal Inspection, Normal Mucosa, No Blood Throat/Mouth: Normal Inspection, Normal Lips, Normal Oropharynx, Normal Voice, No Airway Compromise Head: Atraumatic, Normocephalic Neck: Normal Inspection Respiratory/Chest: No Respiratory Distress, Lungs Clear, Normal Breath Sounds, No Accessory Muscle Use Cardiovascular: Regular Rate, Rhythm, No Edema GI/Abdominal: Normal Bowel Sounds, Soft, Non-Tender, No Distention Extremities: Normal Inspection, Normal Range of Motion, Non-Tender, No Pedal Edema Neurological: Alert, CN II-XII Intact, No Motor/Sensory Deficits, Confused (mild ) Psychiatric: Normal Affect, Normal Mood Skin Exam: Warm, Dry, Intact, Normal Color, No Rash Course - Vital Signs Text/Narrative:: Voided at home before departing so not able to void here, bladder scan 875 ml Munroe placed for urinary retention. Has a hx of polio, non-ambulatory. Last Recorded V/S: Last Vital Signs Temp 36.6 C 12/25/17 11:38 Pulse 84 12/25/17 11:38 Resp 24 H 12/25/17 11:38 BP 151/58 H 12/25/17 15:43 Pulse Ox 98 12/25/17 11:38 - Orders/Labs/Meds Orders: Active Orders 24 hr Category Date Time Status Bladder Scan [RC] ASDIRECTED Care 12/25/17 11:57 Active Munroe Catheter Insertion [Insert Urinary Catheter] [OM. Care 12/25/17 12:30 Ordered PC] Q24H Urinary Catheter Assessment [RC] ASDIRECTED Care 12/25/17 12:19 Active Labs: Laboratory Tests 12/25/17 12/25/17 12/25/17 Range/Units 12:09 12:09 12:29 WBC 6.7 (4.5-11.0) K/uL RBC 4.35 (4.30-5.90) M/uL Hgb 11.5 L (12.0-15.0) g/dL Hct 36.2 L (40.0-54.0) % MCV 83 (80-98) fL MCH 26 L (27-31) pg MCHC 32 (32-36) % Plt Count 198 (150-400) K/uL Sodium 143 (140-148) mmol/L Potassium 4.1 (3.6-5.2) mmol/L Chloride 106 (100-108) mmol/L Carbon Dioxide 26 (21-32) mmol/L Anion Gap 11.5 (5.0-14.0) mmol/L BUN 69 H D (7-18) mg/dL Creatinine 2.6 H (0.8-1.3) mg/dL Est Cr Clr Drug Dosing 22.80 mL/min Estimated GFR (MDRD) 24 L (>60) Glucose 76 (74-106) mg/dL Calcium 8.8 (8.5-10.1) mg/dL Total Bilirubin 0.6 (0.2-1.0) mg/dL AST 14 L (15-37) U/L ALT 21 (12-78) U/L Alkaline Phosphatase 113 (46-116) U/L Troponin I < 0.017 (0.000-0.056) ng/mL Total Protein 7.3 (6.4-8.2) g/dL Albumin 3.8 (3.4-5.0) g/dL Globulin 3.5 (2.3-3.5) g/dL Albumin/Globulin Ratio 1.1 L (1.2-2.2) Urine Color Yellow Urine Appearance Clear Urine pH 5.0 (4.5-8.0) Ur Specific [place] 1.015 (1.008-1.030) Urine Protein Negative (NEGATIVE) mg/dL Urine Glucose (UA) Normal (NEGATIVE) mg/dL Urine Ketones Negative (NEGATIVE) mg/dL Urine Occult Blood Negative (NEGATIVE) Urine Nitrite Negative (NEGAITVE) Urine Bilirubin Negative (NEGATIVE) Urine Urobilinogen Normal (NORMAL) mg/dL Ur Leukocyte Esterase Negative (NEGATIVE) Urine RBC 0-5 (0-5) Urine WBC 0-5 (0-5) Ur Epithelial Cells Few Amorphous Sediment Not seen Urine Bacteria Few Urine Mucus Not seen Meds: Medications Discontinued Medications Generic Name Dose Route Start Last Admin Trade Name Freq PRN Reason Stop Dose Admin Lactated Ringer's 1,000 mls @ 1,000 mls/hr 12/25/17 12:38 12/25/17 13:19 Ringers, Lactated IV 12/25/17 13:37 1,000 mls/hr BOLUS ONE Administration Departure - Departure Time of Disposition: 16:00 Disposition: Home, Self-Care 01 Condition: Fair Clinical Impression: Visual hallucination, Urinary retention - Discharge Information *PRESCRIPTION DRUG MONITORING PROGRAM REVIEWED*: Not Applicable *COPY OF PRESCRIPTION DRUG MONITORING REPORT IN PATIENT QUENTIN: Not Applicable Referrals: PCP,None [Primary Care Provider] - Forms: ED Department Discharge Additional Instructions: Hold the Wellbutrin. Continue other meds. F/U with your doctor for recheck luis. Follow up with urology luis. Keep appt with psychiatry unless the problem resolves, then cancel. - My Orders Last 24 Hours: My Active Orders 12/25/17 11:57 Bladder Scan [RC] ASDIRECTED 12/25/17 12:19 Urinary Catheter Assessment [RC] ASDIRECTED 12/25/17 12:30 Munroe Catheter Insertion [Insert Urinary Catheter] [OM.PC] Q24H - Assessment/Plan Last 24 Hours: My Active Orders 12/25/17 11:57 Bladder Scan [RC] ASDIRECTED 12/25/17 12:19 Urinary Catheter Assessment [RC] ASDIRECTED 12/25/17 12:30 Munroe Catheter Insertion [Insert Urinary Catheter] [OM.PC] Q24H
[2017-12-25] MEDS ORDERED: Lactated Ringers 1,000 ML IV ONE (12:38)
[2017-12-25 15:43] VITALS: BP 151/58
== END 2017-12-25 17:15 | disposition home or self-care (01) ==
LOC: JP.ED 11:35
DX: R44.1 Visual hallucinations (principal); R33.9 Retention of urine, unspecified; I10 Essential (primary) hypertension; J44.9 Chronic obstructive pulmonary disease, unspecified; E11.9 Type 2 diabetes mellitus without complications; E78.00 Pure hypercholesterolemia, unspecified; Z79.899 Other long term (current) drug therapy; Z79.4 Long term (current) use of insulin
CPT/HCPCS: 36415; 51702; 51798; 80053; 81001; 84484; 85027; 96360; 99285; J7120; 99283

== ENCOUNTER 2018-10-14 19:57 | Inpatient (IN) | payer MEDICARE, OTHER ==
[2018-10-14] MEDS ORDERED: Sodium Chloride 0.9% 10 ML Syringe FLUSH PRN (21:30)
[2018-10-14] MEDS ORDERED: Albuterol/Ipratropium 3.0-0.5 MG/3 ML Neb Soln NEB ONE (21:30)
--- NOTE | 2018-10-14 21:38 | EDM.PDOC ---
ED HPI GENERAL MEDICAL PROBLEM - General Chief Complaint: Skin Complaint Stated Complaint: MEDICAL [facility] Time Seen by Provider: 10/14/18 21:36 Source of Information: Reports: Patient, Family History Limitations: Reports: No Limitations - History of Present Illness INITIAL COMMENTS - FREE TEXT/NARRATIVE: pt arrived by ambulance with a markedly swollen rt leg. There is red streaking up the leg. He is having alot of sob and wheezing. Onset: Gradual, Other ( The lower leg has been red but today it is streaking up ethe leg. ) Duration: Hour(s): Location: Reports: Chest, Lower Extremity, Right Associated Symptoms: Reports: Shortness of Breath right buttock Pain Score (Numeric/FACES): 10 - Related Data Allergies Allergy/AdvReac Type Severity Reaction Status Date / Time No Known Allergies Allergy Verified 10/14/18 20:32 Home Meds: Home Meds Allopurinol [Zyloprim] 300 mg PO DAILY 10/10/16 [History] Budesonide/Formoterol [Symbicort 160-4.5 MCG] 2 puff INH BID 10/10/16 [History] Pravastatin [Pravachol] 40 mg PO DAILY 10/10/16 [History] Acetaminophen [Pain Relief] 650 mg PO QID PRN 04/12/17 [History] Cyanocobalamin (Vitamin B-12) [Vitamin B-12] 1,000 mcg PO DAILY 04/12/17 [ History] Insulin Aspart [NovoLOG] 8 unit SQ TIDMEALS 04/12/17 [History] Insulin Glarg,Human.Rec.Analog [Lantus] 42 unit SUBCUT BEDTIME 04/12/17 [History ] Isosorbide Mononitrate [Isosorbide Mononitrate ER] 30 mg PO DAILY 04/12/17 [ History] Sertraline HCl 100 mg PO DAILY 04/12/17 [History] Albuterol Sulfate [Proair Respiclick] 2 puff INH Q4H PRN 04/14/17 [History] Aspirin [Halfprin] 81 mg PO BEDTIME 04/14/17 [History] Albuterol [Proventil] 1 inh INH Q4H PRN 05/02/17 [History] Furosemide [Lasix] 20 mg PO DAILY 05/06/17 [History] Potassium Chloride 10 meq PO DAILY 05/06/17 [History] Tamsulosin [Flomax] 0.4 mg PO BID 05/06/17 [History] Albuterol [Proventil Neb Soln] 2.5 mg .XX QID PRN 10/14/18 [History] Cholecalciferol (Vitamin D3) [Vitamin D3] 2,000 unit PO DAILY 10/14/18 [History] Metoprolol Succinate [Toprol XL] 25 mg PO DAILY 10/14/18 [History] Past Medical History HEENT History: Reports: Cataract, Impaired Vision Other HEENT History: L carpel tunnel Cardiovascular History: Reports: Arrhythmia, CAD, High Cholesterol, Hypertension , Stents Other Cardiovascular History: 5 stents Respiratory History: Reports: Asthma, COPD, SOB, Other (See Below) Other Respiratory History: on inhaler Gastrointestinal History: Reports: Chronic Constipation Genitourinary History: Reports: Prostate Disorder, UTI, Recurrent, Other (See Below) Other Genitourinary History: slow flow Musculoskeletal History: Reports: Arthritis, Gout, Other (See Below) 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/17 Neurological History: Reports: TIA, Other (See Below) Other Neuro History: "passes out episodes-no diagnosis from MRI,CT" Psychiatric History: Reports: Anxiety, Dementia Endocrine/Metabolic History: Reports: Diabetes, Type II, IDDM, Obesity/BMI 30+, Vitamin D Deficiency Hematologic History: Reports: B12 Deficiency Immunologic History: Reports: None Oncologic (Cancer) History: Reports: Colon Dermatologic History: Reports: Other (See Below) Other Dermatologic History: age spots, - Infectious Disease History Infectious Disease History: Reports: Chicken Pox, Measles, Mumps Other Infectious Disease History: polio - Past Surgical History Head Surgeries/Procedures: Reports: None HEENT Surgical History: Reports: Cataract Surgery, Tonsillectomy Cardiovascular Surgical History: Reports: Coronary Artery Stent Respiratory Surgical History: Reports: None GI Surgical History: Reports: Colon, Colonoscopy, Hernia, Abdominal Endocrine Surgical History: Reports: None Neurological Surgical History: Reports: None Musculoskeletal Surgical History: Reports: Joint Replacement, Knee Replacement Other Musculoskeletal Surgeries/Procedures:: right knee Oncologic Surgical History: Reports: None Dermatological Surgical History: Reports: None Social & Family History - Family History Family Medical History: Noncontributory - Tobacco Use Smoking Status *Q: Never Smoker - Caffeine Use Caffeine Use: Reports: Coffee, Soda - Recreational Drug Use Recreational Drug Use: No - Living Situation & Occupation Living situation: Reports: ( of 60 + years 7 years ago. Daughter this year from muscular dystrophy) Occupation: Disabled ED ROS GENERAL - Review of Systems Review Of Systems: See Below Constitutional: Reports: Malaise, Weakness, Other ( sob) HEENT: Reports: No Symptoms Respiratory: Reports: Shortness of Breath, Wheezing, Cough Cardiovascular: Reports: Dyspnea on Exertion, Other (rt leg is markedly swollen and is very red going up the leg. ) Endocrine: Reports: No Symptoms GI/Abdominal: Reports: No Symptoms : Reports: No Symptoms Musculoskeletal: Reports: No Symptoms Skin: Reports: No Symptoms Neurological: Reports: No Symptoms ED EXAM, SKIN/RASH Exam: See Below Text/Narrative:: pt arrived with a marked swelling in the rt leg. There is red streaking going up the leg. He has a history a ulcer on his buttock. He hs also been quite sob with wheezing present. e Exam Limited By: No Limitations General Appearance: Alert, Moderate Distress Ears: Normal TMs Nose: Normal Inspection Throat/Mouth: Normal Inspection Head: Atraumatic Neck: Normal Inspection Respiratory/Chest: Decreased Breath Sounds, Rhonchi, Wheezing Cardiovascular: Regular Rate, Rhythm GI/Abdominal: Soft, Non-Tender (Male) Exam: Deferred Rectal (Males) Exam: Deferred, Other ( area on the buttock looks dry and not open. ) Back Exam: Normal Inspection Extremities: Other ( rt leg has diminished pulses. He has marked swelling of the entire leg. There is profound redness in the lower leg and the redness is going up the leg. He had a US of the leg which does not show clots. He has multiple nodes in the groin. ) Neurological: Alert, Normal Cognition Psychiatric: Anxious Course - Vital Signs Last Recorded V/S: Last Vital Signs Temp 36.7 C 10/14/18 20:34 Pulse 76 10/14/18 20:34 Resp 16 10/14/18 20:34 BP 144/69 H 10/14/18 20:34 Pulse Ox 95 10/14/18 20:34 - Orders/Labs/Meds Orders: Active Orders 24 hr Category Date Time Status EKG Documentation Completion [RC] ASDIRECTED Care 10/14/18 21:32 Active RT Aerosol Therapy [RC] ASDIRECTED Care 10/14/18 21:30 Active VL Duplex Lwr Ext Veins Ltd Rt [US] Stat Exams 10/14/18 21:34 Taken CULTURE BLOOD [BC] Urgent Lab 10/14/18 21:40 Received CULTURE BLOOD [BC] Urgent Lab 10/14/18 21:50 Received UA W/MICROSCOPIC [URIN] Urgent Lab 10/14/18 21:31 Ordered Sodium Chloride 0.9% [Normal Saline] 1,000 ml Med 10/14/18 22:30 Active IV ASDIRECTED Sodium Chloride 0.9% [Saline Flush] Med 10/14/18 21:30 Active 10 ml FLUSH ASDIRECTED PRN Blood Culture x2 Reflex Set [OM.PC] Urgent Oth 10/14/18 21:34 Ordered Saline Lock Insert [OM.PC] Routine Oth 10/14/18 21:30 Ordered EKG 12 Lead [EK] Routine Ther 10/14/18 21:32 Ordered Medication Orders Sodium Chloride (Normal Saline) 1,000 mls @ 100 mls/hr IV ASDIRECTED JAYDEN Last Admin: 10/14/18 22:41 Dose: 100 mls/hr Sodium Chloride (Saline Flush) 10 ml FLUSH ASDIRECTED PRN PRN Reason: Keep Vein Open Last Admin: 10/14/18 21:56 Dose: 10 ml Labs: Laboratory Tests 10/14/18 10/14/18 10/14/18 Range/Units 21:31 21:31 21:37 WBC 22.2 H (4.5-11.0) K/uL RBC 4.11 L (4.30-5.90) M/uL Hgb 11.3 L (12.0-15.0) g/dL Hct 35.9 L (40.0-54.0) % MCV 87 (80-98) fL MCH 28 (27-31) pg MCHC 32 (32-36) % Plt Count 180 (150-400) K/uL Add Manual Diff Yes Neutrophils % (Manual) 80 H (36-66) % Band Neutrophils % 2 L (5-11) % Lymphocytes % (Manual) 8 L (24-44) % Monocytes % (Manual) 9 H (2-6) % Eosinophils % (Manual) 1 L (2-4) % Polychromasia Sodium 133 L (140-148) mmol/L Potassium 4.6 (3.6-5.2) mmol/L Chloride 97 L (100-108) mmol/L Carbon Dioxide 25 (21-32) mmol/L Anion Gap 15.6 H (5.0-14.0) mmol/L BUN 51 H (7-18) mg/dL Creatinine 2.5 H (0.8-1.3) mg/dL Est Cr Clr Drug Dosing 23.28 mL/min Estimated GFR (MDRD) 25 L (>60) Glucose 229 H (74-106) mg/dL Lactic Acid 1.5 (0.4-2.0) mmol/L Calcium 8.9 (8.5-10.1) mg/dL Total Bilirubin 1.1 H D (0.2-1.0) mg/dL AST 20 (15-37) U/L ALT 29 (12-78) U/L Alkaline Phosphatase 181 H (46-116) U/L NT-Pro-B Natriuret Pep 1749 H (5-450) pg/mL Total Protein 7.1 (6.4-8.2) g/dL Albumin 2.7 L (3.4-5.0) g/dL Globulin 4.4 H (2.3-3.5) g/dL Albumin/Globulin Ratio 0.6 L (1.2-2.2) Meds: Medications Generic Name Dose Route Start Last Admin Trade Name Freq PRN Reason Stop Dose Admin Sodium Chloride 1,000 mls @ 100 mls/hr 10/14/18 22:30 10/14/18 22:41 Normal Saline IV 100 mls/hr ASDIRECTED JAYDEN Administration Sodium Chloride 10 ml 10/14/18 21:30 10/14/18 21:56 Saline Flush FLUSH 10 ml ASDIRECTED PRN Administration Keep Vein Open Discontinued Medications Generic Name Dose Route Start Last Admin Trade Name Freq PRN Reason Stop Dose Admin Albuterol/Ipratropium 3 ml 10/14/18 21:30 10/14/18 21:47 Duoneb 3.0-0.5 Mg/3 Ml NEB 10/14/18 21:31 3 ml ONETIME ONE Administration Furosemide 40 mg 10/14/18 23:26 Lasix IVPUSH 10/14/18 23:27 ONETIME ONE Levofloxacin/Dextrose 500 mg/ 100 mls @ 100 mls/hr 10/14/18 22:29 10/14/18 23 :09 Premix IV 10/14/18 23:28 Not Given ONETIME ONE Piperacillin Sod/Tazobactam 50 mls @ 100 mls/hr 10/14/18 22:36 10/14/18 22:50 Sod 3.375 gm/ Sodium Chloride IV 10/14/18 23:05 100 mls/hr Q6H ONE Administration - Re-Assessments/Exams Free Text/Narrative Re-Assessment/Exam: 10/14/18 23:32 US of rt leg is neg for clots, wbc is 22,000/ His chest xray reveals possible atelectasis. Departure - Departure Time of Disposition: 23:32 Disposition: Admitted As Inpatient 68 Condition: Fair Clinical Impression: Cellulitis of right leg, Fluid overload, Bronchospasm - Discharge Information Referrals: PCP,None [Primary Care Provider] - Forms: ED Department Discharge Care Plan Goals: admit to Dr Martinez. - My Orders Last 24 Hours: My Active Orders 10/14/18 21:30 RT Aerosol Therapy [RC] ASDIRECTED Sodium Chloride 0.9% [Saline Flush] 10 ml FLUSH ASDIRECTED PRN Saline Lock Insert [OM.PC] Routine 10/14/18 21:31 UA W/MICROSCOPIC [URIN] Urgent 10/14/18 21:32 EKG Documentation Completion [RC] ASDIRECTED EKG 12 Lead [EK] Routine 10/14/18 21:34 VL Duplex Lwr Ext Veins Ltd Rt [US] Stat Blood Culture x2 Reflex Set [OM.PC] Urgent 10/14/18 21:40 CULTURE BLOOD [BC] Urgent 10/14/18 21:50 CULTURE BLOOD [BC] Urgent 10/14/18 22:30 Sodium Chloride 0.9% [Normal Saline] 1,000 ml IV ASDIRECTED - Assessment/Plan Last 24 Hours: My Active Orders 10/14/18 21:30 RT Aerosol Therapy [RC] ASDIRECTED Sodium Chloride 0.9% [Saline Flush] 10 ml FLUSH ASDIRECTED PRN Saline Lock Insert [OM.PC] Routine 10/14/18 21:31 UA W/MICROSCOPIC [URIN] Urgent 10/14/18 21:32 EKG Documentation Completion [RC] ASDIRECTED EKG 12 Lead [EK] Routine 10/14/18 21:34 VL Duplex Lwr Ext Veins Ltd Rt [US] Stat Blood Culture x2 Reflex Set [OM.PC] Urgent 10/14/18 21:40 CULTURE BLOOD [BC] Urgent 10/14/18 21:50 CULTURE BLOOD [BC] Urgent 10/14/18 22:30 Sodium Chloride 0.9% [Normal Saline] 1,000 ml IV ASDIRECTED
[2018-10-14] MEDS ORDERED: Levofloxacin/Dextrose 5%-Water 500 MG in Premix Bag 1 BAG IV ONE (22:29)
[2018-10-14] MEDS ORDERED: Piperacillin/Tazobactam 3.375 GM in Sodium Chloride 0.9% 50 ML IV ONE (22:36)
[2018-10-14] MEDS: Sodium Chloride 0.9% 1,000 ML IV SCH (22:41)
--- NOTE | 2018-10-14 22:43 | CRLCR ---
INDICATION: Shortness of breath, wheezy TECHNIQUE: Chest radiograph 1 view COMPARISON: 04/12/2017 FINDINGS: Moderate degradation of image quality noted due to body habitus. Mediastinum: The mediastinum is normal in appearance. The heart silhouette is normal in size and morphology. Lung: Small lung volumes are present with bibasilar atelectasis. No sign of pleural effusion seen. No pneumothorax is identified. IMPRESSION: 1. Small lung volumes are present with bibasilar atelectasis. Dictated by Danny Boone MD @ 10/14/2018 10:38:58 PM Dictated by: Danny Boone MD @ 10/14/2018 22:41:09 (Electronically Signed)
[2018-10-14] MEDS ORDERED: Furosemide 40 MG/4 ML VIAL IVPUSH ONE (23:26)
--- NOTE | 2018-10-14 23:27 | CRLUS ---
INDICATION: Swollen right leg with erythema. TECHNIQUE: Ultrasound venous duplex lower right extremity. Compression venous exam was performed using harris-scale, color Doppler, and spectral Doppler imaging. COMPARISON: None. FINDINGS: Sonographic imaging demonstrates the right common femoral, deep femoral, superficial femoral, popliteal, posterior tibial and greater saphenous and the contralateral left common femoral veins to be fully compressible with normal color Doppler blood flow. Right inguinal lymph nodes with a normal morphology, largest measuring 2.1 centimeters. IMPRESSION: 1. Normal right lower extremity venous ultrasound, no sign of deep venous thrombosis. 2. Right inguinal adenopathy, likely reactive. Dictated by Tre Guerrero MD @ Oct 14 2018 11:24PM Signed by Dr. Tre Guerrero @ Oct 14 2018 11:26PM
[2018-10-15] MEDS ORDERED: Albuterol/Ipratropium 3.0-0.5 MG/3 ML Neb Soln NEB PRN (00:03)
[2018-10-15] MEDS ORDERED: Sodium Chloride 0.9% 10 ML Syringe FLUSH PRN (00:03)
[2018-10-15] MEDS ORDERED: Acetaminophen 325 MG Tab PO PRN (00:03)
--- NOTE | 2018-10-15 02:06 | HP ---
CHIEF COMPLAINT: Right leg pain and swelling. HISTORY OF PRESENT ILLNESS: An 88-year-old who has diabetes. States for the last 2 weeks since he has developed a cold, he had pain, redness, and swelling of his right leg, which has gotten progressively worse, was brought in by ambulance for further evaluation, was evaluated by emergency room physician. Diagnoses of cellulitis and possibly fluid overload with congestive sounding lungs. I was asked to admit the patient for further evaluation and treatment. PAST MEDICAL HISTORY: 1. Type 2 diabetes mellitus, on insulin. 2. Colon cancer. 3. Right total knee arthroplasty. 4. Essential hypertension. 5. Hyperlipidemia. 6. Polio as a child. CURRENT MEDICATIONS: 1. Acetaminophen p.r.n. 2. Albuterol neb p.r.n. 3. Allopurinol 300 mg daily. 4. Aspirin 81 mg daily. 5. Symbicort 2 puffs b.i.d. 6. Vitamin D 2000 units daily. 7. Vitamin B12, 1000 mcg daily. 8. Furosemide 20 mg daily. 9. NovoLog 8 units t.i.d. with meals. 10.Lantus 42 units at bedtime. 11.Isosorbide mononitrate 30 mg daily. 12.Toprol-XL 25 mg daily. 13.Potassium chloride 10 mEq daily. 14.Pravastatin 40 mg daily. 15.Sertraline 100 mg daily. 16.Tamsulosin 0.4 mg daily. ALLERGIES: NO KNOWN DRUG ALLERGIES. SOCIAL HISTORY: Quit smoking cigars over 30 years ago. No alcohol 40 years ago. FAMILY HISTORY: Unknown. REVIEW OF SYSTEMS: Denies headaches, vision changes, upper respiratory symptoms. He has had a productive cough with shortness of breath. No chest pain. No nausea or vomiting. Denies any bowel or bladder trouble. Does have the swelling of his right leg with pain and redness. OBJECTIVE: VITAL SIGNS: Weight 127 kg. Temp 36.7, pulse 76, blood pressure 144/69, respirations 16, O2 sat 95% on room air. GENERAL: The patient seems to be fairly alert and oriented, but had a hard time telling me specifics about his medication list and past medical history. HEENT: Pharynx is clear. NECK: Supple. No adenopathy, thyromegaly, JVD, carotid bruits. LUNGS: Slightly wheezy and slight crackles in the bases. HEART: Regular. ABDOMEN: Soft, nontender. No mass or organomegaly palpated. EXTREMITIES: No edema in his left leg. He does have edema in his right leg with erythema up to his proximal thigh from the ankle. He does have some scaly skin there, but I do not see any drainage areas. DIAGNOSTIC DATA: Chest x-ray shows small lung volumes, bibasilar atelectasis. Venous Doppler was negative for DVT to the right leg. Did show right . LABORATORY DATA: White count 22,000, hemoglobin 11.3, platelets 180,000 with 80% neutrophils. Sodium 133, potassium 4.6, chloride 97, BUN is 51, creatinine 2.5. I am not sure what his baseline is. Glucose 229, lactic acid 1.5, bilirubin 1.1. The rest of his liver enzymes were normal. Alkaline phosphatase was slightly elevated at 181. BNP was elevated at 1749. Albumin was low at 2.7. Blood cultures are pending. ASSESSMENT: 1. Cellulitis, right leg. The patient has been started on IV Zosyn in the ER, which we will continue. It was felt that he was a little bit fluid overloaded, although he does have underlying chronic kidney disease with elevated creatinine. The patient did receive IV Lasix in the emergency room to see if the diuresis is tolerated to see if that would help his breathing status or if sats are okay. We will admit him to inpatient. Anticipate more than 2 midnight stays, and transfer his care to the Hospitalist Service in the morning. 2. Underlying diabetes. Q.i.d. Accu-Cheks. 3. Other medical problems as listed above. Galileo Martinez MD /[id number]
[2018-10-15] MEDS ORDERED: Piperacillin/Tazobactam 3.375 GM in Sodium Chloride 0.9% 50 ML IV SCH (03:00)
[2018-10-15] MEDS ORDERED: Fluticasone-Salmeterol 232-14 MCG Powder Inhalent INH SCH (07:00)
[2018-10-15] MEDS ORDERED: Insulin Lispro 100 Unit/ML 3 ML KwikPen SUBCUT SCH (08:00)
[2018-10-15] MEDS: Insulin Lispro 100 Unit/ML 3 ML KwikPen SUBCUT SCH ×3 (08:08→16:21)
[2018-10-15] MEDS: Sertraline 50 MG Tab PO SCH (08:50)
[2018-10-15] MEDS: Furosemide 20 MG Tab PO SCH (08:51)
[2018-10-15] MEDS: Potassium Chloride 10 MEQ Cap.ER PO SCH (08:51)
[2018-10-15] MEDS: Cyanocobalamin (Vitamin B12) 1,000 MCG Tab PO SCH (08:51)
[2018-10-15] MEDS: Metoprolol Succinate 25 MG Tab.ER PO SCH (08:52)
[2018-10-15] MEDS: Tamsulosin 0.4 MG Cap.ER PO SCH ×2 (08:52→21:00)
[2018-10-15] MEDS: Cholecalciferol (Vitamin D3) 25 MCG Tab PO SCH (08:52)
[2018-10-15] MEDS: Isosorbide Mononitrate 30 MG Tab.ER PO SCH (08:52)
[2018-10-15] MEDS: Fluticasone-Salmeterol 232-14 MCG Powder Inhalent INH SCH ×2 (08:53→21:02)
[2018-10-15] MEDS ORDERED: Allopurinol 100 MG Tab PO SCH (09:00)
[2018-10-15] MEDS ORDERED: Pravastatin 20 MG Tab PO SCH (09:00)
[2018-10-15] MEDS ORDERED: Allopurinol 300 MG Tab PO SCH (09:00)
--- NOTE | 2018-10-15 10:07 | PCM.PN ---
- General Info Date of Service: 10/15/18 Subjective Update: no acute events overnight following admission. Patient did not have any fevers overnight. He does not report significant pain in the right leg at this time. Erythema seems slightly improved when compared to the outlined area from last night. Still significant cellulitis involving almost the entire right leg. He is very sleepy after getting essentially no sleep overnight. He is requiring a Latha lift. He thinks his shortness of breath has improved after the dose of furosemide yesterday. Kidney function is stable. Functional Status: Reports: Pain Controlled - Review of Systems General: Reports: Fatigue. Denies: Fever - Patient Data Vitals - Most Recent: Last Vital Signs Temp 37.1 C 10/15/18 07:00 Pulse 86 10/15/18 08:52 Resp 18 10/15/18 07:00 BP 137/73 10/15/18 08:52 Pulse Ox 95 10/15/18 07:00 Weight - Most Recent: 127.006 kg I&O - Last 24 Hours: Intake & Output 10/14/18 10/15/18 10/15/18 22:59 06:59 14:59 Intake Total 120 Output Total 350 200 Balance -350 -80 Lab Results Last 24 Hours: Laboratory Results - last 24 hr 10/14/18 10/14/18 10/14/18 Range/Units 21:31 21:31 21:37 WBC 22.2 H (4.5-11.0) K/uL RBC 4.11 L (4.30-5.90) M/uL Hgb 11.3 L (12.0-15.0) g/dL Hct 35.9 L (40.0-54.0) % MCV 87 (80-98) fL MCH 28 (27-31) pg MCHC 32 (32-36) % Plt Count 180 (150-400) K/uL Add Manual Diff Yes Neutrophils % (Manual) 80 H (36-66) % Band Neutrophils % 2 L (5-11) % Lymphocytes % (Manual) 8 L (24-44) % Monocytes % (Manual) 9 H (2-6) % Eosinophils % (Manual) 1 L (2-4) % Polychromasia Sodium 133 L (140-148) mmol/L Potassium 4.6 (3.6-5.2) mmol/L Chloride 97 L (100-108) mmol/L Carbon Dioxide 25 (21-32) mmol/L Anion Gap 15.6 H (5.0-14.0) mmol/L BUN 51 H (7-18) mg/dL Creatinine 2.5 H (0.8-1.3) mg/dL Est Cr Clr Drug Dosing 23.28 mL/min Estimated GFR (MDRD) 25 L (>60) Glucose 229 H (74-106) mg/dL Lactic Acid 1.5 (0.4-2.0) mmol/L Calcium 8.9 (8.5-10.1) mg/dL Total Bilirubin 1.1 H D (0.2-1.0) mg/dL AST 20 (15-37) U/L ALT 29 (12-78) U/L Alkaline Phosphatase 181 H (46-116) U/L NT-Pro-B Natriuret Pep 1749 H (5-450) pg/mL Total Protein 7.1 (6.4-8.2) g/dL Albumin 2.7 L (3.4-5.0) g/dL Globulin 4.4 H (2.3-3.5) g/dL Albumin/Globulin Ratio 0.6 L (1.2-2.2) Urine Color Urine Appearance Urine pH (4.5-8.0) Ur Specific [place] (1.008-1.030) Urine Protein (NEGATIVE) mg/dL Urine Glucose (UA) (NEGATIVE) mg/dL Urine Ketones (NEGATIVE) mg/dL Urine Occult Blood (NEGATIVE) Urine Nitrite (NEGAITVE) Urine Bilirubin (NEGATIVE) Urine Urobilinogen (NORMAL) mg/dL Ur Leukocyte Esterase (NEGATIVE) Urine RBC (0-5) Urine WBC (0-5) Ur Epithelial Cells Amorphous Sediment Urine Bacteria Urine Mucus 10/15/18 10/15/18 10/15/18 Range/Units 04:00 05:58 05:58 WBC 20.4 H (4.5-11.0) K/uL RBC 4.01 L (4.30-5.90) M/uL Hgb 10.9 L (12.0-15.0) g/dL Hct 35.2 L (40.0-54.0) % MCV 88 (80-98) fL MCH 27 (27-31) pg MCHC 31 L (32-36) % Plt Count 260 (150-400) K/uL Add Manual Diff Neutrophils % (Manual) (36-66) % Band Neutrophils % (5-11) % Lymphocytes % (Manual) (24-44) % Monocytes % (Manual) (2-6) % Eosinophils % (Manual) (2-4) % Polychromasia Sodium 135 L (140-148) mmol/L Potassium 4.2 (3.6-5.2) mmol/L Chloride 99 L (100-108) mmol/L Carbon Dioxide 26 (21-32) mmol/L Anion Gap 14.2 H (5.0-14.0) mmol/L BUN 49 H (7-18) mg/dL Creatinine 2.4 H (0.8-1.3) mg/dL Est Cr Clr Drug Dosing 24.25 mL/min Estimated GFR (MDRD) 26 L (>60) Glucose 174 H (74-106) mg/dL Lactic Acid (0.4-2.0) mmol/L Calcium 8.5 (8.5-10.1) mg/dL Total Bilirubin (0.2-1.0) mg/dL AST (15-37) U/L ALT (12-78) U/L Alkaline Phosphatase (46-116) U/L NT-Pro-B Natriuret Pep (5-450) pg/mL Total Protein (6.4-8.2) g/dL Albumin (3.4-5.0) g/dL Globulin (2.3-3.5) g/dL Albumin/Globulin Ratio (1.2-2.2) Urine Color Yellow Urine Appearance Slightly cloudy Urine pH 5.0 (4.5-8.0) Ur Specific [place] 1.010 (1.008-1.030) Urine Protein Trace (NEGATIVE) mg/dL Urine Glucose (UA) Normal (NEGATIVE) mg/dL Urine Ketones Negative (NEGATIVE) mg/dL Urine Occult Blood Negative (NEGATIVE) Urine Nitrite Negative (NEGAITVE) Urine Bilirubin Negative (NEGATIVE) Urine Urobilinogen Normal (NORMAL) mg/dL Ur Leukocyte Esterase Moderate (NEGATIVE) Urine RBC 0-5 (0-5) Urine WBC 20-30 H (0-5) Ur Epithelial Cells Rare Amorphous Sediment Not seen Urine Bacteria Moderate Urine Mucus Not seen Med Orders - Current: Current Medications Acetaminophen (Tylenol) 650 mg PO Q4H PRN PRN Reason: Pain (Mild 1-3)/fever Albuterol/Ipratropium (Duoneb 3.0-0.5 Mg/3 Ml) 3 ml NEB QID PRN PRN Reason: Shortness Of Breath/wheezing Allopurinol (Zyloprim) 300 mg PO DAILY [facility] Last Admin: 10/15/18 08:52 Dose: 300 mg Aspirin (Halfprin) 81 mg PO BEDTIME [facility] Cholecalciferol (Vitamin D3) 50 mcg PO DAILY [facility] Last Admin: 10/15/18 08:52 Dose: 50 mcg Cyanocobalamin (Vitamin B12) 1,000 mcg PO DAILY [facility] Last Admin: 10/15/18 08:51 Dose: 1,000 mcg Furosemide (Lasix) 20 mg PO DAILY [facility] Last Admin: 10/15/18 08:51 Dose: 20 mg Sodium Chloride (Normal Saline) 1,000 mls @ 100 mls/hr IV ASDIRECTED [facility] Last Admin: 10/14/18 22:41 Dose: 100 mls/hr Piperacillin/Tazobactam/ (Dextrose 2.25 gm/ Premix) 50 mls @ 100 mls/hr IV Q6H [facility] Insulin Glargine (Lantus Solostar) 42 units SUBCUT BEDTIME [facility] Insulin Human Lispro (Humalog) 8 unit SUBCUT TIDMEALS [facility] Last Admin: 10/15/18 08:08 Dose: 8 units Isosorbide Mononitrate (Imdur) 30 mg PO DAILY [facility] Last Admin: 10/15/18 08:52 Dose: 30 mg Metoprolol Succinate (Toprol Xl) 25 mg PO DAILY [facility] Last Admin: 10/15/18 08:52 Dose: 25 mg Potassium Chloride (Potassium Chloride) 10 meq PO DAILY [facility] Last Admin: 10/15/18 08:51 Dose: 10 meq Pravastatin Sodium (Pravachol) 40 mg PO BEDTIME [facility] Fluticasone/Salmeterol (Fluticasone-Salmeterol 232-14 Mcg Powder Inha) 1 puff INH BIDRT [facility] Last Admin: 10/15/18 08:53 Dose: 1 puff Sertraline HCl (Zoloft) 100 mg PO DAILY [facility] Last Admin: 10/15/18 08:50 Dose: 100 mg Sodium Chloride (Saline Flush) 10 ml FLUSH ASDIRECTED PRN PRN Reason: Keep Vein Open Tamsulosin HCl (Flomax) 0.4 mg PO BID [facility] Last Admin: 10/15/18 08:52 Dose: 0.4 mg Discontinued Medications Albuterol/Ipratropium (Duoneb 3.0-0.5 Mg/3 Ml) 3 ml NEB ONETIME ONE Stop: 10/14/18 21:31 Last Admin: 10/14/18 21:47 Dose: 3 ml Furosemide (Lasix) 40 mg IVPUSH ONETIME ONE Stop: 10/14/18 23:27 Last Admin: 10/15/18 00:09 Dose: 40 mg Levofloxacin/Dextrose 500 mg/ (Premix) 100 mls @ 100 mls/hr IV ONETIME ONE Stop: 10/14/18 23:28 Last Admin: 10/14/18 23:09 Dose: Not Given Piperacillin Sod/Tazobactam (Sod 3.375 gm/ Sodium Chloride) 50 mls @ 100 mls/ hr IV Q6H ONE Stop: 10/14/18 23:05 Last Admin: 10/14/18 22:50 Dose: 100 mls/hr Piperacillin Sod/Tazobactam (Sod 3.375 gm/ Sodium Chloride) 50 mls @ 100 mls/ hr IV Q6H [facility] Last Admin: 10/15/18 03:23 Dose: 100 mls/hr Sodium Chloride (Saline Flush) 10 ml FLUSH ASDIRECTED PRN PRN Reason: Keep Vein Open Last Admin: 10/14/18 21:56 Dose: 10 ml - Exam Quality Assessment: No: Supplemental Oxygen General: Alert, Oriented, Cooperative, No Acute Distress, Other (sleepy) HEENT: Pupils Equal Lungs: Clear to Auscultation, Normal Respiratory Effort Cardiovascular: Regular Rate, Regular Rhythm GI/Abdominal Exam: Soft, No Distention Extremities: No Pedal Edema, Increased Warmth (entire right leg ) Skin: Warm, Dry, Rash (erythema from right upper thigh extending down leg to the foot. Mostly lateral but some anterior and posterior), Other (small <1 cm sacral ulcers on bilateral upper gluteal clefts. No drainage ) Psy/Mental Status: Alert, Normal Affect - Problem List Review Problem List Initiated/Reviewed/Updated: Yes - My Orders Last 24 Hours: My Active Orders 10/15/18 10:00 Doxycycline [Vibramycin] 100 mg Sodium Chloride 0.9% [Normal Saline] 100 ml IV Q12HR 10/15/18 10:15 Enoxaparin [Lovenox] 30 mg SUBCUT Q24H Lactobacillus Rhamnosus GG [Culturelle] 1 cap PO BID 10/15/18 14:00 Nystatin [Nystop] 1 gm TOP TID - Plan Plan:: ASSESSMENT AND PLAN - Right leg cellulitis - fairly impressive cellulitis involving almost the entire right leg. No obvious wounds to the leg though he does have a sacral ulcer and the cellulitis does extend all the way up to this. White blood cell count is slightly better today. He is not having fevers. Pain is well-controlled. -Continue Pip/Tazo -Start doxycycline for staph coverage -pain control Stage III sacral ulcer - small ulcer that involves both the left and right side of the gluteal cleft. Relatively small areas on both sides with maximum diameter of 1 cm. this was present on admission and has been present and slowly healing for approximately 9 months. -Local wound cares -Outpatient follow-up Insulin-dependent diabetes mellitus - sugars acceptable at this time. 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 Currently requiring a Latha lift. He may need a care home for subacute rehabilitation after the hospital stay though I'm not sure how much potential rehabilitation he does actually have. 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 -Renal dosing of antibiotics and other medications -Daily labs Maintenance issues - - DVT prophylaxis - low-dose enoxaparin - GI prophylaxis - not indicated - Nutrition - consistent carbohydrates - Munroe catheter - not indicated Disposition - I would anticipate discharge home with home care and SURGICAL SCRUB TECH versus potentially care home admission Leon Chicas M.D.
[2018-10-15] MEDS: Enoxaparin 30 MG/0.3 ML Syringe SUBCUT SCH (11:01)
[2018-10-15] MEDS: Lactobacillus Rhamnosus GG (Probiotic) Cap PO SCH ×2 (11:01→20:59)
[2018-10-15] MEDS: Piperacillin/Tazobactam/Dext 2.25 GM in Premix Bag 1 BAG IV SCH ×3 (11:01→21:31)
[2018-10-15] MEDS: Doxycycline 100 MG in Sodium Chloride 0.9% 100 ML IV SCH ×2 (11:31→22:34)
[2018-10-15] MEDS: Nystatin Topical Powder 15 GM Bottle TOP SCH ×2 (18:03→21:00)
[2018-10-15] MEDS: Sodium Chloride 0.9% 1,000 ML IV SCH (20:57)
[2018-10-15] MEDS: Aspirin 81 MG Tab.EC PO SCH (21:00)
[2018-10-15] MEDS ORDERED: Insulin Glargine,Human Rec. Analog 100 Units/ML 3 ML Pen SUBCUT SCH (21:00)
[2018-10-15] MEDS: Pravastatin 20 MG Tab PO SCH (21:01)
[2018-10-15] MEDS: Insulin Glargine,Human Rec. Analog 100 Units/ML 3 ML Pen SUBCUT SCH (21:30)
[2018-10-16] MEDS: Piperacillin/Tazobactam/Dext 2.25 GM in Premix Bag 1 BAG IV SCH ×4 (03:57→21:02)
[2018-10-16] MEDS: Fluticasone-Salmeterol 232-14 MCG Powder Inhalent INH SCH ×2 (07:15→20:55)
[2018-10-16] MEDS: Sertraline 50 MG Tab PO SCH (08:38)
[2018-10-16] MEDS: Insulin Lispro 100 Unit/ML 3 ML KwikPen SUBCUT SCH ×3 (08:38→18:22)
[2018-10-16] MEDS: Allopurinol 300 MG Tab PO SCH (08:39)
[2018-10-16] MEDS: Metoprolol Succinate 25 MG Tab.ER PO SCH (08:39)
[2018-10-16] MEDS: Cyanocobalamin (Vitamin B12) 1,000 MCG Tab PO SCH (08:39)
[2018-10-16] MEDS: Isosorbide Mononitrate 30 MG Tab.ER PO SCH (08:39)
[2018-10-16] MEDS: Nystatin Topical Powder 15 GM Bottle TOP SCH ×3 (08:40→20:56)
[2018-10-16] MEDS: Furosemide 20 MG Tab PO SCH (08:40)
[2018-10-16] MEDS: Tamsulosin 0.4 MG Cap.ER PO SCH ×2 (08:40→20:55)
[2018-10-16] MEDS: Lactobacillus Rhamnosus GG (Probiotic) Cap PO SCH ×2 (08:40→20:55)
[2018-10-16] MEDS: Cholecalciferol (Vitamin D3) 25 MCG Tab PO SCH (08:48)
[2018-10-16] MEDS: Potassium Chloride 10 MEQ Cap.ER PO SCH (08:48)
[2018-10-16] MEDS ORDERED: Magnesium Hydroxide 400 MG/5 ML Susp 30 ML Cup PO PRN (08:52)
[2018-10-16] MEDS: Enoxaparin 30 MG/0.3 ML Syringe SUBCUT SCH (10:10)
[2018-10-16] MEDS: Doxycycline 100 MG in Sodium Chloride 0.9% 100 ML IV SCH ×2 (11:22→21:45)
--- NOTE | 2018-10-16 11:45 | PCM.PN ---
- General Info Date of Service: 10/16/18 Subjective Update: There were no acute events overnight. Vital signs have all been stable. There is no significant pain in the right leg at this time. Erythema has improved dramatically from yesterday. He does report ongoing discomfort in the area of the sacral ulcer. Blood sugars have been well-controlled. No points of shortness of breath at this time. No fevers. Functional Status: Reports: Pain Controlled, Tolerating Diet - Review of Systems General: Denies: Fever Musculoskeletal: Denies: Leg Pain - Patient Data Vitals - Most Recent: Last Vital Signs Temp 36.8 C 10/16/18 11:00 Pulse 77 10/16/18 11:00 Resp 18 10/16/18 11:00 BP 117/47 L 10/16/18 11:00 Pulse Ox 93 L 10/16/18 11:00 Weight - Most Recent: 127.006 kg I&O - Last 24 Hours: Intake & Output 10/15/18 10/16/18 10/16/18 22:59 06:59 14:59 Intake Total 1750 819 710 Output Total 800 1400 400 Balance 950 -581 310 Camilo Results Last 24 Hours: Microbiology 10/14/18 21:40 Aerobic Blood Culture - Preliminary Blood - Arm, Left NO GROWTH AFTER 1 DAY Anaerobic Blood Culture - Preliminary NO GROWTH AFTER 1 DAY 10/14/18 21:50 Aerobic Blood Culture - Preliminary Blood - Venous - Lab Draw NO GROWTH AFTER 1 DAY Anaerobic Blood Culture - Preliminary NO GROWTH AFTER 1 DAY Med Orders - Current: Current Medications Acetaminophen (Tylenol) 650 mg PO Q4H PRN PRN Reason: Pain (Mild 1-3)/fever Last Admin: 10/16/18 10:06 Dose: 650 mg Albuterol/Ipratropium (Duoneb 3.0-0.5 Mg/3 Ml) 3 ml NEB QID PRN PRN Reason: Shortness Of Breath/wheezing Allopurinol (Zyloprim) 150 mg PO DAILY [facility] Last Admin: 10/16/18 08:39 Dose: 150 mg Aspirin (Halfprin) 81 mg PO BEDTIME [facility] Last Admin: 10/15/18 21:00 Dose: 81 mg Cholecalciferol (Vitamin D3) 50 mcg PO DAILY [facility] Last Admin: 10/16/18 08:48 Dose: 50 mcg Cyanocobalamin (Vitamin B12) 1,000 mcg PO DAILY [facility] Last Admin: 10/16/18 08:39 Dose: 1,000 mcg Enoxaparin Sodium (Lovenox) 30 mg SUBCUT Q24H [facility] Last Admin: 10/16/18 10:10 Dose: 30 mg Furosemide (Lasix) 20 mg PO DAILY [facility] Last Admin: 10/16/18 08:40 Dose: 20 mg Sodium Chloride (Normal Saline) 1,000 mls @ 100 mls/hr IV ASDIRECTED [facility] Last Admin: 10/15/18 20:57 Dose: 100 mls/hr Piperacillin/Tazobactam/ (Dextrose 2.25 gm/ Premix) 50 mls @ 100 mls/hr IV Q6H [facility] Last Admin: 10/16/18 10:04 Dose: 100 mls/hr Doxycycline Hyclate 100 mg/ (Sodium Chloride) 100 mls @ 100 mls/hr IV Q12H [facility] Last Admin: 10/16/18 11:22 Dose: 100 mls/hr Insulin Glargine (Lantus Solostar) 42 units SUBCUT BEDTIME [facility] Last Admin: 10/15/18 21:30 Dose: 42 units Insulin Human Lispro (Humalog) 8 unit SUBCUT TIDMEALS [facility] Last Admin: 10/16/18 08:38 Dose: 8 units Isosorbide Mononitrate (Imdur) 30 mg PO DAILY [facility] Last Admin: 10/16/18 08:39 Dose: 30 mg Lactobacillus Rhamnosus (Culturelle) 1 cap PO BID [facility] Last Admin: 10/16/18 08:40 Dose: 1 cap Magnesium Hydroxide (Milk Of Magnesia) 30 ml PO BID PRN PRN Reason: Constipation Metoprolol Succinate (Toprol Xl) 25 mg PO DAILY [facility] Last Admin: 10/16/18 08:39 Dose: 25 mg Nystatin (Nystop) 0 gm TOP TID [facility] Last Admin: 10/16/18 08:40 Dose: 1 applic Potassium Chloride (Potassium Chloride) 10 meq PO DAILY [facility] Last Admin: 10/16/18 08:48 Dose: 10 meq Pravastatin Sodium (Pravachol) 40 mg PO BEDTIME [facility] Last Admin: 10/15/18 21:01 Dose: 40 mg Fluticasone/Salmeterol (Fluticasone-Salmeterol 232-14 Mcg Powder Inha) 1 puff INH BIDRT [facility] Last Admin: 10/16/18 07:15 Dose: 1 puff Senna/Docusate Sodium (Senna Plus) 1 tab PO BID PRN PRN Reason: Constipation Sertraline HCl (Zoloft) 100 mg PO DAILY [facility] Last Admin: 10/16/18 08:38 Dose: 100 mg Sodium Chloride (Saline Flush) 10 ml FLUSH ASDIRECTED PRN PRN Reason: Keep Vein Open Tamsulosin HCl (Flomax) 0.4 mg PO BID [facility] Last Admin: 10/16/18 08:40 Dose: 0.4 mg Discontinued Medications Albuterol/Ipratropium (Duoneb 3.0-0.5 Mg/3 Ml) 3 ml NEB ONETIME ONE Stop: 10/14/18 21:31 Last Admin: 10/14/18 21:47 Dose: 3 ml Allopurinol (Zyloprim) 300 mg PO DAILY [facility] Last Admin: 10/15/18 08:52 Dose: 300 mg Furosemide (Lasix) 40 mg IVPUSH ONETIME ONE Stop: 10/14/18 23:27 Last Admin: 10/15/18 00:09 Dose: 40 mg Levofloxacin/Dextrose 500 mg/ (Premix) 100 mls @ 100 mls/hr IV ONETIME ONE Stop: 10/14/18 23:28 Last Admin: 10/14/18 23:09 Dose: Not Given Piperacillin Sod/Tazobactam (Sod 3.375 gm/ Sodium Chloride) 50 mls @ 100 mls/ hr IV Q6H ONE Stop: 10/14/18 23:05 Last Admin: 10/14/18 22:50 Dose: 100 mls/hr Piperacillin Sod/Tazobactam (Sod 3.375 gm/ Sodium Chloride) 50 mls @ 100 mls/ hr IV Q6H [facility] Last Admin: 10/15/18 03:23 Dose: 100 mls/hr Sodium Chloride (Saline Flush) 10 ml FLUSH ASDIRECTED PRN PRN Reason: Keep Vein Open Last Admin: 10/14/18 21:56 Dose: 10 ml - Exam Quality Assessment: No: Supplemental Oxygen General: Alert, Oriented, Cooperative, No Acute Distress Lungs: Normal Respiratory Effort Cardiovascular: Regular Rate, Regular Rhythm GI/Abdominal Exam: Soft, No Distention Extremities: No Pedal Edema. No: Increased Warmth Skin: Warm, Dry, Rash (erythema right leg much improved. Still mild diffuse erythema, most impressive medil thigh ) Psy/Mental Status: Alert, Normal Affect - Problem List Review Problem List Initiated/Reviewed/Updated: Yes - My Orders Last 24 Hours: My Active Orders 10/15/18 14:00 Nystatin [Nystop] 0 gm TOP TID 10/16/18 08:52 Docusate Sodium/Sennosides [Senna Plus] 1 tab PO BID PRN Magnesium Hydroxide [Milk of Magnesia] 30 ml PO BID PRN 10/16/18 09:00 Allopurinol [Zyloprim] 150 mg PO DAILY 10/16/18 11:43 Convert IV to Saline Lock [OM.PC] Routine 10/17/18 05:00 BASIC METABOLIC PANEL,BMP [CHEM] Timed CBC W/O DIFF,HEMOGRAM [HEME] Timed (1) - Plan Plan:: ASSESSMENT AND PLAN - Right leg cellulitis - fairly impressive cellulitis involving almost the entire right leg with excellent improvement over the past 24 hours. No fevers. No significant pain. Cultures are negative so far. -Continue Pip/Tazo and doxycycline -pain control Stage III sacral ulcer - small ulcer that involves both the left and right side of the gluteal cleft. Relatively small areas on both sides with maximum diameter of 1 cm. this was present on admission and has been present and slowly healing for approximately 9 months. -Local wound cares -Outpatient follow-up with student education specialist Insulin-dependent diabetes mellitus - sugars are excellent. 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 Currently requiring a Latha lift. He is happy with his current level of care at home which includes 10 hours a CHEMICAL DEPENDENCY ATTENDANT help per day. He may benefit from additional home care services to help with wound care management. 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 -Renal dosing of antibiotics and other medications -Daily labs Maintenance issues - - DVT prophylaxis - low-dose enoxaparin - GI prophylaxis - not indicated - Nutrition - consistent carbohydrates - Munroe catheter - not indicated Disposition - I would anticipate discharge home with home care and CHEMICAL DEPENDENCY ATTENDANT after the hospital stay Leon Chicas M.D.
[2018-10-16] MEDS: Aspirin 81 MG Tab.EC PO SCH (20:55)
[2018-10-16] MEDS: Pravastatin 20 MG Tab PO SCH (20:56)
[2018-10-16] MEDS: Insulin Glargine,Human Rec. Analog 100 Units/ML 3 ML Pen SUBCUT SCH (21:06)
[2018-10-17] MEDS: Piperacillin/Tazobactam/Dext 2.25 GM in Premix Bag 1 BAG IV SCH ×2 (04:39→10:09)
[2018-10-17] MEDS: Fluticasone-Salmeterol 232-14 MCG Powder Inhalent INH SCH ×2 (07:14→20:41)
[2018-10-17] MEDS: Insulin Lispro 100 Unit/ML 3 ML KwikPen SUBCUT SCH ×3 (08:27→17:15)
[2018-10-17] MEDS: Metoprolol Succinate 25 MG Tab.ER PO SCH (08:33)
[2018-10-17] MEDS: Furosemide 20 MG Tab PO SCH (08:33)
[2018-10-17] MEDS: Cyanocobalamin (Vitamin B12) 1,000 MCG Tab PO SCH (08:33)
[2018-10-17] MEDS: Isosorbide Mononitrate 30 MG Tab.ER PO SCH (08:34)
[2018-10-17] MEDS: Tamsulosin 0.4 MG Cap.ER PO SCH ×2 (08:34→20:37)
[2018-10-17] MEDS: Lactobacillus Rhamnosus GG (Probiotic) Cap PO SCH ×2 (08:34→20:37)
[2018-10-17] MEDS: Sertraline 50 MG Tab PO SCH (08:35)
[2018-10-17] MEDS: Potassium Chloride 10 MEQ Cap.ER PO SCH (08:35)
[2018-10-17] MEDS: Allopurinol 300 MG Tab PO SCH (08:35)
[2018-10-17] MEDS: Cholecalciferol (Vitamin D3) 25 MCG Tab PO SCH (08:36)
[2018-10-17] MEDS: Nystatin Topical Powder 15 GM Bottle TOP SCH ×3 (08:36→20:38)
[2018-10-17] MEDS: Enoxaparin 30 MG/0.3 ML Syringe SUBCUT SCH (11:20)
[2018-10-17] MEDS: Doxycycline 100 MG in Sodium Chloride 0.9% 100 ML IV SCH ×2 (11:20→21:43)
--- NOTE | 2018-10-17 11:20 | PCM.PN ---
- General Info Date of Service: 10/17/18 Subjective Update: no acute events overnight. No significant leg pain at this time. No complaints of shortness of breath. Blood sugars have been fairly well-controlled. Cultures remain negative. Erythema and swelling of the right leg have improved further today. Appetite has been good. He had a bowel movement. Functional Status: Reports: Pain Controlled, Tolerating Diet - Review of Systems General: Denies: Fever Musculoskeletal: Denies: Leg Pain - Patient Data Vitals - Most Recent: Last Vital Signs Temp 36.4 C 10/17/18 07:00 Pulse 80 10/17/18 08:33 Resp 16 10/17/18 07:00 BP 156/70 H 10/17/18 08:34 Pulse Ox 94 L 10/17/18 07:00 Weight - Most Recent: 127.006 kg I&O - Last 24 Hours: Intake & Output 10/16/18 10/17/18 10/17/18 22:59 06:59 14:59 Intake Total 550 50 170 Output Total 700 675 300 Balance -150 625 -130 Lab Results Last 24 Hours: Laboratory Results - last 24 hr 10/17/18 10/17/18 Range/Units 04:37 04:37 WBC 11.1 H (4.5-11.0) K/uL RBC 3.96 L (4.30-5.90) M/uL Hgb 10.8 L (12.0-15.0) g/dL Hct 34.4 L (40.0-54.0) % MCV 87 (80-98) fL MCH 27 (27-31) pg MCHC 31 L (32-36) % Plt Count 311 (150-400) K/uL Sodium 141 (140-148) mmol/L Potassium 3.8 (3.6-5.2) mmol/L Chloride 105 (100-108) mmol/L Carbon Dioxide 25 (21-32) mmol/L Anion Gap 10.6 (5.0-14.0) mmol/L BUN 45 H (7-18) mg/dL Creatinine 2.0 H (0.8-1.3) mg/dL Est Cr Clr Drug Dosing 29.14 mL/min Estimated GFR (MDRD) 32 L (>60) Glucose 146 H (74-106) mg/dL Calcium 8.5 (8.5-10.1) mg/dL Camilo Results Last 24 Hours: Microbiology 10/14/18 21:40 Aerobic Blood Culture - Preliminary Blood - Arm, Left NO GROWTH AFTER 2 DAYS Anaerobic Blood Culture - Preliminary NO GROWTH AFTER 2 DAYS 10/14/18 21:50 Aerobic Blood Culture - Preliminary Blood - Venous - Lab Draw NO GROWTH AFTER 2 DAYS Anaerobic Blood Culture - Preliminary NO GROWTH AFTER 2 DAYS Med Orders - Current: Current Medications Acetaminophen (Tylenol) 650 mg PO Q4H PRN PRN Reason: Pain (Mild 1-3)/fever Last Admin: 10/16/18 10:06 Dose: 650 mg Albuterol/Ipratropium (Duoneb 3.0-0.5 Mg/3 Ml) 3 ml NEB QID PRN PRN Reason: Shortness Of Breath/wheezing Allopurinol (Zyloprim) 150 mg PO DAILY [facility] Last Admin: 10/17/18 08:35 Dose: 150 mg Aspirin (Halfprin) 81 mg PO BEDTIME [facility] Last Admin: 10/16/18 20:55 Dose: 81 mg Cholecalciferol (Vitamin D3) 50 mcg PO DAILY [facility] Last Admin: 10/17/18 08:36 Dose: 50 mcg Cyanocobalamin (Vitamin B12) 1,000 mcg PO DAILY [facility] Last Admin: 10/17/18 08:33 Dose: 1,000 mcg Enoxaparin Sodium (Lovenox) 30 mg SUBCUT Q24H [facility] Last Admin: 10/16/18 10:10 Dose: 30 mg Furosemide (Lasix) 20 mg PO DAILY [facility] Last Admin: 10/17/18 08:33 Dose: 20 mg Piperacillin/Tazobactam/ (Dextrose 2.25 gm/ Premix) 50 mls @ 100 mls/hr IV Q6H [facility] Last Admin: 10/17/18 10:09 Dose: 100 mls/hr Doxycycline Hyclate 100 mg/ (Sodium Chloride) 100 mls @ 100 mls/hr IV Q12H [facility] Last Admin: 10/16/18 21:45 Dose: 100 mls/hr Insulin Glargine (Lantus Solostar) 42 units SUBCUT BEDTIME [facility] Last Admin: 10/16/18 21:06 Dose: 42 units Insulin Human Lispro (Humalog) 8 unit SUBCUT TIDMEALS [facility] Last Admin: 10/17/18 08:27 Dose: 8 units Isosorbide Mononitrate (Imdur) 30 mg PO DAILY [facility] Last Admin: 10/17/18 08:34 Dose: 30 mg Lactobacillus Rhamnosus (Culturelle) 1 cap PO BID [facility] Last Admin: 10/17/18 08:34 Dose: 1 cap Magnesium Hydroxide (Milk Of Magnesia) 30 ml PO BID PRN PRN Reason: Constipation Metoprolol Succinate (Toprol Xl) 25 mg PO DAILY [facility] Last Admin: 10/17/18 08:33 Dose: 25 mg Nystatin (Nystop) 0 gm TOP TID [facility] Last Admin: 10/17/18 08:36 Dose: 1 applic Potassium Chloride (Potassium Chloride) 10 meq PO DAILY [facility] Last Admin: 10/17/18 08:35 Dose: 10 meq Pravastatin Sodium (Pravachol) 40 mg PO BEDTIME [facility] Last Admin: 10/16/18 20:56 Dose: 40 mg Fluticasone/Salmeterol (Fluticasone-Salmeterol 232-14 Mcg Powder Inha) 1 puff INH BIDRT [facility] Last Admin: 10/17/18 07:14 Dose: 1 puff Senna/Docusate Sodium (Senna Plus) 1 tab PO BID PRN PRN Reason: Constipation Sertraline HCl (Zoloft) 100 mg PO DAILY [facility] Last Admin: 10/17/18 08:35 Dose: 100 mg Sodium Chloride (Saline Flush) 10 ml FLUSH ASDIRECTED PRN PRN Reason: Keep Vein Open Tamsulosin HCl (Flomax) 0.4 mg PO BID [facility] Last Admin: 10/17/18 08:34 Dose: 0.4 mg Discontinued Medications Albuterol/Ipratropium (Duoneb 3.0-0.5 Mg/3 Ml) 3 ml NEB ONETIME ONE Stop: 10/14/18 21:31 Last Admin: 10/14/18 21:47 Dose: 3 ml Allopurinol (Zyloprim) 300 mg PO DAILY [facility] Last Admin: 10/15/18 08:52 Dose: 300 mg Furosemide (Lasix) 40 mg IVPUSH ONETIME ONE Stop: 10/14/18 23:27 Last Admin: 10/15/18 00:09 Dose: 40 mg Sodium Chloride (Normal Saline) 1,000 mls @ 100 mls/hr IV ASDIRECTED [facility] Last Admin: 10/15/18 20:57 Dose: 100 mls/hr Levofloxacin/Dextrose 500 mg/ (Premix) 100 mls @ 100 mls/hr IV ONETIME ONE Stop: 10/14/18 23:28 Last Admin: 10/14/18 23:09 Dose: Not Given Piperacillin Sod/Tazobactam (Sod 3.375 gm/ Sodium Chloride) 50 mls @ 100 mls/ hr IV Q6H ONE Stop: 10/14/18 23:05 Last Admin: 10/14/18 22:50 Dose: 100 mls/hr Piperacillin Sod/Tazobactam (Sod 3.375 gm/ Sodium Chloride) 50 mls @ 100 mls/ hr IV Q6H [facility] Last Admin: 10/15/18 03:23 Dose: 100 mls/hr Sodium Chloride (Saline Flush) 10 ml FLUSH ASDIRECTED PRN PRN Reason: Keep Vein Open Last Admin: 10/14/18 21:56 Dose: 10 ml - Exam Quality Assessment: No: Supplemental Oxygen General: Alert, Oriented, Cooperative, No Acute Distress Lungs: Normal Respiratory Effort GI/Abdominal Exam: Soft, No Distention Extremities: Pedal Edema (mild right lower leg ). No: Increased Warmth Skin: Rash (mild erythema right medial thigh and right lower leg ) - Problem List Review Problem List Initiated/Reviewed/Updated: Yes - My Orders Last 24 Hours: My Active Orders 10/16/18 11:43 Convert IV to Saline Lock [OM.PC] Routine 10/18/18 05:00 BASIC METABOLIC PANEL,BMP [CHEM] Timed CBC W/O DIFF,HEMOGRAM [HEME] Timed (1) - Plan Plan:: ASSESSMENT AND PLAN - Right leg cellulitis - fairly impressive cellulitis involving almost the entire right leg with ongoing improvement. No fevers. White blood cell count improved. -discontinue Pip/Tazo -continue doxycycline -pain control Stage III sacral ulcer - small ulcer that involves both the left and right side of the gluteal cleft. Relatively small areas on both sides with maximum diameter of 1 cm. this was present on admission and has been present and slowly healing for approximately 9 months. -Local wound cares -Outpatient follow-up with virtual reality specialist Insulin-dependent diabetes mellitus - sugars are adequately controlled. 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 Currently requiring a Latha lift. He is happy with his current level of care at home which includes 10 hours a [employer] help per day. He may benefit from additional home care services to help with wound care management. 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 -Renal dosing of antibiotics and other medications -Daily labs Maintenance issues - - DVT prophylaxis - low-dose enoxaparin - GI prophylaxis - not indicated - Nutrition - consistent carbohydrates - Umnroe catheter - not indicated Disposition - I would anticipate discharge home with home care and [employer] after the hospital stay Leon Chicas M.D.
[2018-10-17] MEDS: Pravastatin 20 MG Tab PO SCH (20:37)
[2018-10-17] MEDS: Aspirin 81 MG Tab.EC PO SCH (20:38)
[2018-10-17] MEDS: Insulin Glargine,Human Rec. Analog 100 Units/ML 3 ML Pen SUBCUT SCH (21:13)
[2018-10-17] MEDS: Doxycycline 100 MG Cap PO SCH (23:08)
[2018-10-18] MEDS: Fluticasone-Salmeterol 232-14 MCG Powder Inhalent INH SCH ×2 (07:15→21:08)
[2018-10-18] MEDS: Nystatin Topical Powder 15 GM Bottle TOP SCH ×3 (08:56→21:08)
[2018-10-18] MEDS: Doxycycline 100 MG Cap PO SCH ×2 (08:56→21:07)
[2018-10-18] MEDS: Sertraline 50 MG Tab PO SCH (08:57)
[2018-10-18] MEDS: Tamsulosin 0.4 MG Cap.ER PO SCH ×2 (08:57→21:08)
[2018-10-18] MEDS: Metoprolol Succinate 25 MG Tab.ER PO SCH (08:57)
[2018-10-18] MEDS: Furosemide 20 MG Tab PO SCH (08:57)
[2018-10-18] MEDS: Cholecalciferol (Vitamin D3) 25 MCG Tab PO SCH (08:57)
[2018-10-18] MEDS: Cyanocobalamin (Vitamin B12) 1,000 MCG Tab PO SCH (08:58)
[2018-10-18] MEDS: Lactobacillus Rhamnosus GG (Probiotic) Cap PO SCH ×2 (08:58→21:07)
[2018-10-18] MEDS: Allopurinol 300 MG Tab PO SCH (08:58)
[2018-10-18] MEDS: Isosorbide Mononitrate 30 MG Tab.ER PO SCH (08:58)
[2018-10-18] MEDS: Insulin Lispro 100 Unit/ML 3 ML KwikPen SUBCUT SCH ×3 (09:01→16:57)
[2018-10-18] MEDS: Potassium Chloride 10 MEQ Cap.ER PO SCH (09:03)
--- NOTE | 2018-10-18 10:35 | PCM.PN ---
- General Info Date of Service: 10/18/18 Subjective Update: No acute events overnight. No fevers. White blood cell count is better today. No reports of leg pain. Still has some pain in his buttocks but this is stable and chronic. Blood sugars have been fairly well-controlled. No new positive culture results. Appetite has been good. Functional Status: Reports: Pain Controlled, Tolerating Diet - Review of Systems General: Denies: Fever - Patient Data Vitals - Most Recent: Last Vital Signs Temp 36.2 C 10/18/18 03:00 Pulse 73 10/18/18 08:57 Resp 18 10/18/18 08:10 BP 161/77 H 10/18/18 08:58 Pulse Ox 97 10/18/18 08:10 Weight - Most Recent: 127.006 kg I&O - Last 24 Hours: Intake & Output 10/17/18 10/18/18 10/18/18 22:59 06:59 14:59 Intake Total 240 800 Output Total 500 1100 175 Balance -260 -300 -175 Lab Results Last 24 Hours: Laboratory Results - last 24 hr 10/18/18 10/18/18 Range/Units 05:22 05:22 WBC 10.4 (4.5-11.0) K/uL RBC 4.03 L (4.30-5.90) M/uL Hgb 10.9 L (12.0-15.0) g/dL Hct 35.4 L (40.0-54.0) % MCV 88 (80-98) fL MCH 27 (27-31) pg MCHC 31 L (32-36) % Plt Count 302 (150-400) K/uL Sodium 142 (140-148) mmol/L Potassium 3.9 (3.6-5.2) mmol/L Chloride 105 (100-108) mmol/L Carbon Dioxide 27 (21-32) mmol/L Anion Gap 9.9 (5.0-14.0) mmol/L BUN 41 H (7-18) mg/dL Creatinine 1.9 H (0.8-1.3) mg/dL Est Cr Clr Drug Dosing 30.67 mL/min Estimated GFR (MDRD) 34 L (>60) Glucose 160 H (74-106) mg/dL Calcium 9.0 (8.5-10.1) mg/dL Camilo Results Last 24 Hours: Microbiology 10/14/18 21:40 Aerobic Blood Culture - Preliminary Blood - Arm, Left NO GROWTH AFTER 3 DAYS Anaerobic Blood Culture - Preliminary NO GROWTH AFTER 3 DAYS 10/14/18 21:50 Aerobic Blood Culture - Preliminary Blood - Venous - Lab Draw NO GROWTH AFTER 3 DAYS Anaerobic Blood Culture - Preliminary NO GROWTH AFTER 3 DAYS Med Orders - Current: Current Medications Acetaminophen (Tylenol) 650 mg PO Q4H PRN PRN Reason: Pain (Mild 1-3)/fever Last Admin: 10/16/18 10:06 Dose: 650 mg Albuterol/Ipratropium (Duoneb 3.0-0.5 Mg/3 Ml) 3 ml NEB QID PRN PRN Reason: Shortness Of Breath/wheezing Allopurinol (Zyloprim) 150 mg PO DAILY [facility] Last Admin: 10/18/18 08:58 Dose: 150 mg Aspirin (Halfprin) 81 mg PO BEDTIME [facility] Last Admin: 10/17/18 20:38 Dose: 81 mg Cholecalciferol (Vitamin D3) 50 mcg PO DAILY [facility] Last Admin: 10/18/18 08:57 Dose: 50 mcg Cyanocobalamin (Vitamin B12) 1,000 mcg PO DAILY [facility] Last Admin: 10/18/18 08:58 Dose: 1,000 mcg Doxycycline Hyclate (Vibramycin) 100 mg PO BID [facility] Last Admin: 10/18/18 08:56 Dose: 100 mg Enoxaparin Sodium (Lovenox) 30 mg SUBCUT Q24H [facility] Last Admin: 10/17/18 11:20 Dose: 30 mg Furosemide (Lasix) 20 mg PO DAILY [facility] Last Admin: 10/18/18 08:57 Dose: 20 mg Insulin Glargine (Lantus Solostar) 42 units SUBCUT BEDTIME [facility] Last Admin: 10/17/18 21:13 Dose: 42 units Insulin Human Lispro (Humalog) 8 unit SUBCUT TIDMEALS [facility] Last Admin: 10/18/18 09:01 Dose: 8 units Isosorbide Mononitrate (Imdur) 30 mg PO DAILY [facility] Last Admin: 10/18/18 08:58 Dose: 30 mg Lactobacillus Rhamnosus (Culturelle) 1 cap PO BID [facility] Last Admin: 10/18/18 08:58 Dose: 1 cap Magnesium Hydroxide (Milk Of Magnesia) 30 ml PO BID PRN PRN Reason: Constipation Metoprolol Succinate (Toprol Xl) 25 mg PO DAILY [facility] Last Admin: 10/18/18 08:57 Dose: 25 mg Nystatin (Nystop) 0 gm TOP TID [facility] Last Admin: 10/18/18 08:56 Dose: 1 applic Potassium Chloride (Potassium Chloride) 10 meq PO DAILY [facility] Last Admin: 10/18/18 09:03 Dose: 10 meq Pravastatin Sodium (Pravachol) 40 mg PO BEDTIME [facility] Last Admin: 10/17/18 20:37 Dose: 40 mg Fluticasone/Salmeterol (Fluticasone-Salmeterol 232-14 Mcg Powder Inha) 1 puff INH BIDRT [facility] Last Admin: 10/18/18 07:15 Dose: 1 puff Senna/Docusate Sodium (Senna Plus) 1 tab PO BID PRN PRN Reason: Constipation Sertraline HCl (Zoloft) 100 mg PO DAILY [facility] Last Admin: 10/18/18 08:57 Dose: 100 mg Sodium Chloride (Saline Flush) 10 ml FLUSH ASDIRECTED PRN PRN Reason: Keep Vein Open Tamsulosin HCl (Flomax) 0.4 mg PO BID [facility] Last Admin: 10/18/18 08:57 Dose: 0.4 mg Discontinued Medications Albuterol/Ipratropium (Duoneb 3.0-0.5 Mg/3 Ml) 3 ml NEB ONETIME ONE Stop: 10/14/18 21:31 Last Admin: 10/14/18 21:47 Dose: 3 ml Allopurinol (Zyloprim) 300 mg PO DAILY [facility] Last Admin: 10/15/18 08:52 Dose: 300 mg Furosemide (Lasix) 40 mg IVPUSH ONETIME ONE Stop: 10/14/18 23:27 Last Admin: 10/15/18 00:09 Dose: 40 mg Sodium Chloride (Normal Saline) 1,000 mls @ 100 mls/hr IV ASDIRECTED [facility] Last Admin: 10/15/18 20:57 Dose: 100 mls/hr Levofloxacin/Dextrose 500 mg/ (Premix) 100 mls @ 100 mls/hr IV ONETIME ONE Stop: 10/14/18 23:28 Last Admin: 10/14/18 23:09 Dose: Not Given Piperacillin Sod/Tazobactam (Sod 3.375 gm/ Sodium Chloride) 50 mls @ 100 mls/ hr IV Q6H ONE Stop: 10/14/18 23:05 Last Admin: 10/14/18 22:50 Dose: 100 mls/hr Piperacillin Sod/Tazobactam (Sod 3.375 gm/ Sodium Chloride) 50 mls @ 100 mls/ hr IV Q6H [facility] Last Admin: 10/15/18 03:23 Dose: 100 mls/hr Piperacillin/Tazobactam/ (Dextrose 2.25 gm/ Premix) 50 mls @ 100 mls/hr IV Q6H [facility] Last Admin: 10/17/18 10:09 Dose: 100 mls/hr Doxycycline Hyclate 100 mg/ (Sodium Chloride) 100 mls @ 100 mls/hr IV Q12H [facility] Last Admin: 10/17/18 11:20 Dose: 100 mls/hr Sodium Chloride (Saline Flush) 10 ml FLUSH ASDIRECTED PRN PRN Reason: Keep Vein Open Last Admin: 10/14/18 21:56 Dose: 10 ml - Exam Quality Assessment: No: Supplemental Oxygen General: Alert, Oriented, Cooperative, No Acute Distress Lungs: Normal Respiratory Effort Cardiovascular: Regular Rate, Regular Rhythm GI/Abdominal Exam: Soft, No Distention Extremities: No Pedal Edema. No: Increased Warmth Skin: Warm, Dry, Rash (mild erythema right anterior keene ) Psy/Mental Status: Alert, Normal Affect - Problem List Review Problem List Initiated/Reviewed/Updated: Yes - My Orders Last 24 Hours: My Active Orders 10/17/18 22:30 Doxycycline [Vibramycin] 100 mg PO BID 10/19/18 05:00 BASIC METABOLIC PANEL,BMP [CHEM] Timed CBC W/O DIFF,HEMOGRAM [HEME] Timed (1) - Plan Plan:: ASSESSMENT AND PLAN - Right leg cellulitis - fairly impressive cellulitis involving almost the entire right leg with ongoing improvement. No fevers. White blood cell count improved. -continue doxycycline, transition to oral (planning for total of 10 days) -pain control Stage III sacral ulcer - small ulcer that involves both the left and right side of the gluteal cleft. Relatively small areas on both sides with maximum diameter of 1 cm. this was present on admission and has been present and slowly healing for approximately 9 months. -Local wound cares -Home care to assist with wound care -Outpatient follow-up with specialist physicians Insulin-dependent diabetes mellitus - sugars are adequately controlled. 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 Currently requiring a Latha lift. He is happy with his current level of care at home which includes 10 hours a [employer] help per day. He may benefit from additional home care services to help with wound care management. 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
[2018-10-18] MEDS: Enoxaparin 30 MG/0.3 ML Syringe SUBCUT SCH (11:31)
[2018-10-18] MEDS: Pravastatin 20 MG Tab PO SCH (21:07)
[2018-10-18] MEDS: Aspirin 81 MG Tab.EC PO SCH (21:07)
[2018-10-18] MEDS: Insulin Glargine,Human Rec. Analog 100 Units/ML 3 ML Pen SUBCUT SCH (21:08)
[2018-10-19] MEDS: Fluticasone-Salmeterol 232-14 MCG Powder Inhalent INH SCH (07:36)
[2018-10-19] MEDS: Insulin Lispro 100 Unit/ML 3 ML KwikPen SUBCUT SCH ×2 (08:26→13:11)
[2018-10-19] MEDS: Sertraline 50 MG Tab PO SCH (08:29)
[2018-10-19] MEDS: Allopurinol 300 MG Tab PO SCH (08:29)
[2018-10-19] MEDS: Cyanocobalamin (Vitamin B12) 1,000 MCG Tab PO SCH (08:29)
[2018-10-19] MEDS: Isosorbide Mononitrate 30 MG Tab.ER PO SCH (08:30)
[2018-10-19] MEDS: Metoprolol Succinate 25 MG Tab.ER PO SCH (08:30)
[2018-10-19] MEDS: Doxycycline 100 MG Cap PO SCH (08:30)
[2018-10-19] MEDS: Tamsulosin 0.4 MG Cap.ER PO SCH (08:30)
[2018-10-19] MEDS: Furosemide 20 MG Tab PO SCH (08:31)
[2018-10-19] MEDS: Lactobacillus Rhamnosus GG (Probiotic) Cap PO SCH (08:31)
[2018-10-19] MEDS: Nystatin Topical Powder 15 GM Bottle TOP SCH ×2 (08:31→13:12)
[2018-10-19] MEDS: Potassium Chloride 10 MEQ Cap.ER PO SCH (08:31)
[2018-10-19] MEDS: Cholecalciferol (Vitamin D3) 25 MCG Tab PO SCH (08:32)
[2018-10-19] MEDS: Enoxaparin 30 MG/0.3 ML Syringe SUBCUT SCH (10:49)
--- NOTE | 2018-10-19 11:57 | PCM.DCSUM1 ---
Discharge Summary - Hospital Course Brief History: Mr. Silva is an 88-year-old gentleman who was admitted through the emergency department with cellulitis of his right leg. - Discharge Data Discharge Date: 10/19/18 Discharge Disposition: Home, W [facility] Health Agency 06 Condition: Fair - Discharge Diagnosis/Problem(s) (1) Cellulitis of right leg SNOMED Code(s): 182881094 ICD Code: L03.115 - CELLULITIS OF RIGHT LOWER LIMB Status: Acute Current Visit: Yes (2) Type 2 diabetes mellitus SNOMED Code(s): 13209055 ICD Code: E11.9 - TYPE 2 DIABETES MELLITUS WITHOUT COMPLICATIONS Status: Chronic Priority: Medium Current Visit: No Qualifiers: Diabetes mellitus terminal make up operator insulin use: with [facility] use Diabetes mellitus complication status: without complication Qualified Code(s): E11.9 - Type 2 diabetes mellitus without complications; Z79.4 - superintendent terminal (current) use of insulin (3) CKD (chronic kidney disease) stage 4, GFR 15-29 ml/min SNOMED Code(s): 994554696 ICD Code: N18.4 - CHRONIC KIDNEY DISEASE, STAGE 4 (SEVERE) Status: Chronic Priority: Medium Current Visit: No (4) Obesity (BMI 30-39.9) SNOMED Code(s): 707438313, 375877496 ICD Code: E66.9 - OBESITY, UNSPECIFIED Status: Chronic Current Visit: No (5) Decubitus ulcer of back, stage 3 SNOMED Code(s): 381698760 ICD Code: L89.103 - PRESSURE ULCER OF UNSPECIFIED PART OF BACK, STAGE 3 Status: Acute Current Visit: Yes - Patient Summary/Data Hospital Course: Mr. Silva is an 88-year-old gentleman who was admitted through the emergency department with weakness and fever secondary to cellulitis of his right lower extremity. He has a known history of underlying diabetes mellitus as well as chronic kidney disease. 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 On admission he was noted to have a small stage III decubitus ulcer that is been present over the past 9 months. On admission blood cultures were obtained and remained negative throughout the hospital course. He was given IV fluids for hydration and started on IV antibiotic therapy with Zosyn. By the time of discharge cellulitis had almost totally resolved and he had been converted to oral antibiotic therapy with doxycycline. Blood sugars were under good control by the time of discharge and his renal function had remained stable. He will be discharged to home on an additional 5 days of oral doxycycline to complete a 10 day course of antibiotic therapy. Follow-up appointment will be scheduled with his primary care provider within one week. Wound clinic consult will be scheduled with Dr. Nelson for ongoing management of his decubitus ulcer. Activity will be as tolerated and he will be on a consistent carbohydrate diet. - Patient Instructions Diet: Diabetic Diet Activity: As Tolerated Other/Special Instructions: Please schedule follow-up appointment with primary care provider within one week. Please schedule consult with Dr. Nelson in wound care clinic for ongoing management of decubitus ulcer. - Discharge Plan *PRESCRIPTION DRUG MONITORING PROGRAM REVIEWED*: Not Applicable *COPY OF PRESCRIPTION DRUG MONITORING REPORT IN PATIENT QUENTIN: Not Applicable Prescriptions/Med Rec: Doxycycline [Vibramycin] 100 mg PO BID #10 cap Lactobacillus Rhamnosus GG [Culturelle] 1 cap PO BID #60 cap Home Medications: Home Meds Allopurinol [Zyloprim] 300 mg PO DAILY 10/10/16 [History] Budesonide/Formoterol [Symbicort 160-4.5 MCG] 2 puff INH BID 10/10/16 [History] Pravastatin [Pravachol] 40 mg PO DAILY 10/10/16 [History] Acetaminophen [Pain Relief] 650 mg PO QID PRN 04/12/17 [History] Cyanocobalamin (Vitamin B-12) [Vitamin B-12] 1,000 mcg PO DAILY 04/12/17 [ History] Insulin Aspart [NovoLOG] 8 unit SQ TIDMEALS 04/12/17 [History] Insulin Glarg,Human.Rec.Analog [Lantus] 42 unit SUBCUT BEDTIME 04/12/17 [History ] Isosorbide Mononitrate [Isosorbide Mononitrate ER] 30 mg PO DAILY 04/12/17 [ History] Sertraline HCl 100 mg PO DAILY 04/12/17 [History] Albuterol Sulfate [Proair Respiclick] 2 puff INH Q4H PRN 04/14/17 [History] Aspirin [Halfprin] 81 mg PO BEDTIME 04/14/17 [History] Albuterol [Proventil] 1 inh INH Q4H PRN 05/02/17 [History] Furosemide [Lasix] 20 mg PO DAILY 05/06/17 [History] Potassium Chloride 10 meq PO DAILY 05/06/17 [History] Tamsulosin [Flomax] 0.4 mg PO BID 05/06/17 [History] Albuterol [Proventil Neb Soln] 2.5 mg .XX QID PRN 10/14/18 [History] Cholecalciferol (Vitamin D3) [Vitamin D3] 2,000 unit PO DAILY 10/14/18 [History] Metoprolol Succinate [Toprol XL] 25 mg PO DAILY 10/14/18 [History] Doxycycline [Vibramycin] 100 mg PO BID #10 cap 10/19/18 [Rx] Lactobacillus Rhamnosus GG [Culturelle] 1 cap PO BID #60 cap 10/19/18 [Rx] Referrals: Suleman Johnson SUPPLY SPECIALIST [Ordering Only Provider] - - Discharge Summary/Plan Comment DC Time >30 min.: No - Patient Data Vitals - Most Recent: Last Vital Signs Temp 97.2 F 10/19/18 08:02 Pulse 72 10/19/18 08:30 Resp 22 H 10/19/18 08:02 BP 155/78 H 10/19/18 08:30 Pulse Ox 93 L 10/19/18 08:02 Weight - Most Recent: 280 lb I&O - Last 24 hours: Intake & Output 10/18/18 10/19/18 10/19/18 22:59 06:59 14:59 Intake Total 840 600 Output Total 750 1250 100 Balance 90 -1250 500 Lab Results - Last 24 hrs: Laboratory Results - last 24 hr 10/19/18 10/19/18 Range/Units 04:00 04:00 WBC 10.3 (4.5-11.0) K/uL RBC 4.26 L (4.30-5.90) M/uL Hgb 11.4 L (12.0-15.0) g/dL Hct 37.3 L (40.0-54.0) % MCV 88 (80-98) fL MCH 27 (27-31) pg MCHC 31 L (32-36) % Plt Count 318 (150-400) K/uL Sodium 141 (140-148) mmol/L Potassium 3.8 (3.6-5.2) mmol/L Chloride 104 (100-108) mmol/L Carbon Dioxide 27 (21-32) mmol/L Anion Gap 10.3 (5.0-14.0) mmol/L BUN 44 H (7-18) mg/dL Creatinine 1.8 H (0.8-1.3) mg/dL Est Cr Clr Drug Dosing 32.38 mL/min Estimated GFR (MDRD) 36 L (>60) Glucose 140 H (74-106) mg/dL Calcium 8.9 (8.5-10.1) mg/dL ABDIAS Results - Last 24 hrs: Microbiology 10/14/18 21:40 Aerobic Blood Culture - Preliminary Blood - Arm, Left NO GROWTH AFTER 4 DAYS Anaerobic Blood Culture - Preliminary NO GROWTH AFTER 4 DAYS 10/14/18 21:50 Aerobic Blood Culture - Preliminary Blood - Venous - Lab Draw NO GROWTH AFTER 4 DAYS Anaerobic Blood Culture - Preliminary NO GROWTH AFTER 4 DAYS Med Orders - Current: Current Medications Acetaminophen (Tylenol) 650 mg PO Q4H PRN PRN Reason: Pain (Mild 1-3)/fever Last Admin: 10/16/18 10:06 Dose: 650 mg Albuterol/Ipratropium (Duoneb 3.0-0.5 Mg/3 Ml) 3 ml NEB QID PRN PRN Reason: Shortness Of Breath/wheezing Allopurinol (Zyloprim) 150 mg PO DAILY [facility] Last Admin: 10/19/18 08:29 Dose: 150 mg Aspirin (Halfprin) 81 mg PO BEDTIME [facility] Last Admin: 10/18/18 21:07 Dose: 81 mg Cholecalciferol (Vitamin D3) 50 mcg PO DAILY [facility] Last Admin: 10/19/18 08:32 Dose: 50 mcg Cyanocobalamin (Vitamin B12) 1,000 mcg PO DAILY [facility] Last Admin: 10/19/18 08:29 Dose: 1,000 mcg Doxycycline Hyclate (Vibramycin) 100 mg PO BID [facility] Last Admin: 10/19/18 08:30 Dose: 100 mg Enoxaparin Sodium (Lovenox) 30 mg SUBCUT Q24H [facility] Last Admin: 10/19/18 10:49 Dose: 30 mg Furosemide (Lasix) 20 mg PO DAILY [facility] Last Admin: 10/19/18 08:31 Dose: 20 mg Insulin Glargine (Lantus Solostar) 42 units SUBCUT BEDTIME [facility] Last Admin: 10/18/18 21:08 Dose: 42 units Insulin Human Lispro (Humalog) 8 unit SUBCUT TIDMEALS [facility] Last Admin: 10/19/18 08:26 Dose: 8 units Isosorbide Mononitrate (Imdur) 30 mg PO DAILY [facility] Last Admin: 10/19/18 08:30 Dose: 30 mg Lactobacillus Rhamnosus (Culturelle) 1 cap PO BID [facility] Last Admin: 10/19/18 08:31 Dose: 1 cap Magnesium Hydroxide (Milk Of Magnesia) 30 ml PO BID PRN PRN Reason: Constipation Metoprolol Succinate (Toprol Xl) 25 mg PO DAILY [facility] Last Admin: 10/19/18 08:30 Dose: 25 mg Nystatin (Nystop) 0 gm TOP TID [facility] Last Admin: 10/19/18 08:31 Dose: 1 applic Potassium Chloride (Potassium Chloride) 10 meq PO DAILY [facility] Last Admin: 10/19/18 08:31 Dose: 10 meq Pravastatin Sodium (Pravachol) 40 mg PO BEDTIME [facility] Last Admin: 10/18/18 21:07 Dose: 40 mg Fluticasone/Salmeterol (Fluticasone-Salmeterol 232-14 Mcg Powder Inha) 1 puff INH BIDRT [facility] Last Admin: 10/19/18 07:36 Dose: 1 puff Senna/Docusate Sodium (Senna Plus) 1 tab PO BID PRN PRN Reason: Constipation Sertraline HCl (Zoloft) 100 mg PO DAILY [facility] Last Admin: 10/19/18 08:29 Dose: 100 mg Sodium Chloride (Saline Flush) 10 ml FLUSH ASDIRECTED PRN PRN Reason: Keep Vein Open Tamsulosin HCl (Flomax) 0.4 mg PO BID [facility] Last Admin: 10/19/18 08:30 Dose: 0.4 mg Discontinued Medications Albuterol/Ipratropium (Duoneb 3.0-0.5 Mg/3 Ml) 3 ml NEB ONETIME ONE Stop: 10/14/18 21:31 Last Admin: 10/14/18 21:47 Dose: 3 ml Allopurinol (Zyloprim) 300 mg PO DAILY [facility] Last Admin: 10/15/18 08:52 Dose: 300 mg Furosemide (Lasix) 40 mg IVPUSH ONETIME ONE Stop: 10/14/18 23:27 Last Admin: 10/15/18 00:09 Dose: 40 mg Sodium Chloride (Normal Saline) 1,000 mls @ 100 mls/hr IV ASDIRECTED [facility] Last Admin: 10/15/18 20:57 Dose: 100 mls/hr Levofloxacin/Dextrose 500 mg/ (Premix) 100 mls @ 100 mls/hr IV ONETIME ONE Stop: 10/14/18 23:28 Last Admin: 10/14/18 23:09 Dose: Not Given Piperacillin Sod/Tazobactam (Sod 3.375 gm/ Sodium Chloride) 50 mls @ 100 mls/ hr IV Q6H ONE Stop: 10/14/18 23:05 Last Admin: 10/14/18 22:50 Dose: 100 mls/hr Piperacillin Sod/Tazobactam (Sod 3.375 gm/ Sodium Chloride) 50 mls @ 100 mls/ hr IV Q6H [facility] Last Admin: 10/15/18 03:23 Dose: 100 mls/hr Piperacillin/Tazobactam/ (Dextrose 2.25 gm/ Premix) 50 mls @ 100 mls/hr IV Q6H [facility] Last Admin: 10/17/18 10:09 Dose: 100 mls/hr Doxycycline Hyclate 100 mg/ (Sodium Chloride) 100 mls @ 100 mls/hr IV Q12H [facility] Last Admin: 10/17/18 11:20 Dose: 100 mls/hr Sodium Chloride (Saline Flush) 10 ml FLUSH ASDIRECTED PRN PRN Reason: Keep Vein Open Last Admin: 10/14/18 21:56 Dose: 10 ml - Exam General: Reports: Alert, Oriented, Cooperative, No Acute Distress Lungs: Reports: Clear to Auscultation, Normal Respiratory Effort Cardiovascular: Reports: Regular Rate, Regular Rhythm, No Murmurs GI/Abdominal Exam: Soft, Non-Tender, No Organomegaly, No Distention Skin: Reports: Other (Very slight erythema of the right calf)
[2018-10-19 13:09] VITALS: BP 119/54; PULSE 80
== END 2018-10-19 15:39 | disposition home health service (06) | DRG 602 ==
LOC: JP.ED 19:57 → JP.MS 10-15 00:03
PROVIDERS: ADMIT Family Medicine; ATTEND Hospitalist
DX: L03.115 Cellulitis of right lower limb (principal); L89.153 Pressure ulcer of sacral region, stage 3; N18.4 Chronic kidney disease, stage 4 (severe); E87.70 Fluid overload, unspecified; J98.01 Acute bronchospasm; I12.9 Hypertensive chronic kidney disease with stage 1 through stage 4 chronic kidney disease, or unspecified chronic kidney disease; E11.22 Type 2 diabetes mellitus with diabetic chronic kidney disease; J44.9 Chronic obstructive pulmonary disease, unspecified; Z79.4 Long term (current) use of insulin; Z87.891 Personal history of nicotine dependence; M79.89 Other specified soft tissue disorders; R06.02 Shortness of breath; Z74.01 Bed confinement status; Z86.12 Personal history of poliomyelitis; H54.7 Unspecified visual loss; I25.10 Atherosclerotic heart disease of native coronary artery without angina pectoris; E78.5 Hyperlipidemia, unspecified; K59.09 Other constipation; M19.90 Unspecified osteoarthritis, unspecified site; M10.9 Gout, unspecified; Z86.73 Personal history of transient ischemic attack (TIA), and cerebral infarction without residual deficits; F41.9 Anxiety disorder, unspecified; E55.9 Vitamin D deficiency, unspecified; F03.90 Unspecified dementia, unspecified severity, without behavioral disturbance, psychotic disturbance, mood disturbance, and anxiety; E53.8 Deficiency of other specified B group vitamins; Z85.038 Personal history of other malignant neoplasm of large intestine; Z87.440 Personal history of urinary (tract) infections; Z95.5 Presence of coronary angioplasty implant and graft; E66.9 Obesity, unspecified; Z68.38 Body mass index [BMI] 38.0-38.9, adult; Z96.651 Presence of right artificial knee joint; Z79.82 Long term (current) use of aspirin; Z79.899 Other long term (current) drug therapy; N42.9 Disorder of prostate, unspecified
CPT/HCPCS: 36415; 71045; 80053; 83605; 83880; 85025; 87040 ×2; 93005; 93010; 93971; 94640; 96361; 96365; 99285; J2543; J7030; J7050; 51798; 80048; 81001; 82962; 85027; A9270-GY; J1650; J1815; J1815-GY; J1940; J3490; J7620-GY

== ENCOUNTER 2018-12-12 23:53 | Inpatient (IN) | payer MEDICARE, OTHER ==
[2018-12-13] MEDS ORDERED: Lidocaine 2% Jelly 10 ML Urojet MUCMEM ONE (00:13)
--- NOTE | 2018-12-13 01:06 | EDM.PDOC ---
ED HPI GENERAL MEDICAL PROBLEM - General Chief Complaint: General Stated Complaint: MEDICAL [facility]IA [facility] Time Seen by Provider: 12/13/18 00:40 Source of Information: Reports: Patient, EMS, Family, Old Records History Limitations: Reports: No Limitations - History of Present Illness INITIAL COMMENTS - FREE TEXT/NARRATIVE: 88 yo male was seen at a clinic in [place] for shingles on his abdomen and started on valacyclovir 1 gm tid. Since then he has been becoming more lethargic with thick speech and some hallucinations. Tonight his called EMS to have him brought into the ER to be evaluated. Onset: Gradual Onset Date: 12/11/18 Duration: Day(s): (1+), Getting Worse Location: Reports: Generalized Quality: Reports: Other (his only pain is on his abdomen from shingles) Severity: Moderate Improves with: Reports: None Worsens with: Reports: Other (time) Context: Reports: Other (see HPI) Associated Symptoms: Reports: Confusion (mild), Malaise, Weakness (generalized) . Denies: Fever/Chills, Nausea/Vomiting, Shortness of Breath, Syncope Treatments COAL SAMPLE TESTER: Reports: Other (see below) (none) - Related Data Allergies Allergy/AdvReac Type Severity Reaction Status Date / Time No Known Allergies Allergy Verified 12/13/18 00:00 Home Meds: Home Meds Allopurinol [Zyloprim] 300 mg PO DAILY 10/10/16 [History] Budesonide/Formoterol [Symbicort 160-4.5 MCG] 2 puff INH BID 10/10/16 [History] Pravastatin [Pravachol] 40 mg PO DAILY 10/10/16 [History] Acetaminophen [Pain Relief] 650 mg PO QID PRN 04/12/17 [History] Cyanocobalamin (Vitamin B-12) [Vitamin B-12] 1,000 mcg PO DAILY 04/12/17 [ History] Insulin Aspart [NovoLOG] See Protocol SQ TIDMEALS 04/12/17 [History] Insulin Glarg,Human.Rec.Analog [Lantus] 41 unit SUBCUT BEDTIME 04/12/17 [History ] Isosorbide Mononitrate [Isosorbide Mononitrate ER] 30 mg PO DAILY 04/12/17 [ History] Sertraline HCl 100 mg PO DAILY 04/12/17 [History] Albuterol Sulfate [Proair Respiclick] 2 puff INH Q4H PRN 04/14/17 [History] Aspirin [Halfprin] 81 mg PO BEDTIME 04/14/17 [History] Albuterol [Proventil] 1 inh INH Q4H PRN 05/02/17 [History] Furosemide [Lasix] 20 mg PO DAILY 05/06/17 [History] Potassium Chloride 10 meq PO DAILY 05/06/17 [History] Tamsulosin [Flomax] 2 tab PO DAILY 05/06/17 [History] Albuterol [Proventil Neb Soln] 2.5 mg .XX QID PRN 10/14/18 [History] Cholecalciferol (Vitamin D3) [Vitamin D3] 2,000 unit PO DAILY 10/14/18 [History] Metoprolol Succinate [Toprol XL] 25 mg PO DAILY 10/14/18 [History] Lactobacillus Rhamnosus GG [Culturelle] 1 cap PO BID #60 cap 10/19/18 [Rx] Sennosides/Docusate Sodium [Senna Plus Tablet] 1 tab PO BID PRN 12/13/18 [ History] valACYclovir HCl [Valacyclovir] 1 tab PO TID 12/13/18 [History] Past Medical History HEENT History: Reports: Cataract, Impaired Vision Other HEENT History: L carpel tunnel Cardiovascular History: Reports: Arrhythmia, CAD, High Cholesterol, Hypertension , Stents Other Cardiovascular History: 5 stents Respiratory History: Reports: Asthma, COPD, SOB, Other (See Below) Other Respiratory History: on inhaler Gastrointestinal History: Reports: Chronic Constipation Genitourinary History: Reports: Prostate Disorder, UTI, Recurrent, Other (See Below) Other Genitourinary History: slow flow Musculoskeletal History: Reports: Arthritis, Gout, Other (See Below) 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/17 Neurological History: Reports: TIA, Other (See Below) Other Neuro History: "passes out episodes-no diagnosis from MRI,CT" Psychiatric History: Reports: Anxiety, Dementia Endocrine/Metabolic History: Reports: Diabetes, Type II, IDDM, Obesity/BMI 30+, Vitamin D Deficiency Hematologic History: Reports: B12 Deficiency Immunologic History: Reports: None Oncologic (Cancer) History: Reports: Colon Dermatologic History: Reports: Other (See Below) Other Dermatologic History: age spots, - Infectious Disease History Infectious Disease History: Reports: Shingles Other Infectious Disease History: polio - Past Surgical History Head Surgeries/Procedures: Reports: None HEENT Surgical History: Reports: Cataract Surgery, Tonsillectomy Cardiovascular Surgical History: Reports: Coronary Artery Stent Respiratory Surgical History: Reports: None GI Surgical History: Reports: Colon, Colonoscopy, Hernia, Abdominal Male Surgical History: Reports: None Endocrine Surgical History: Reports: None Neurological Surgical History: Reports: None Musculoskeletal Surgical History: Reports: Joint Replacement, Knee Replacement Other Musculoskeletal Surgeries/Procedures:: right knee Oncologic Surgical History: Reports: None Dermatological Surgical History: Reports: None Social & Family History - Family History Family Medical History: Noncontributory - Tobacco Use Smoking Status *Q: Never Smoker - Caffeine Use Caffeine Use: Reports: Coffee, Soda - Recreational Drug Use Recreational Drug Use: No - Living Situation & Occupation Living situation: Reports: ( of 60 + years 7 years ago. Daughter this year from muscular dystrophy) Occupation: Disabled ED ROS GENERAL - Review of Systems Review Of Systems: See Below Constitutional: Reports: Malaise, Weakness HEENT: Reports: No Symptoms Respiratory: Reports: No Symptoms Cardiovascular: Reports: No Symptoms Endocrine: Reports: No Symptoms GI/Abdominal: Reports: No Symptoms : Reports: No Symptoms Musculoskeletal: Reports: No Symptoms Skin: Reports: No Symptoms Neurological: Reports: Confusion, Trouble Speaking (thick), Weakness ( generalized), Change in Speech. Denies: Seizure Psychiatric: Reports: Confusion (mild), Hallucinations (visual). Denies: Agitation ED EXAM, GENERAL - Physical Exam Exam: See Below Exam Limited By: No Limitations General Appearance: Alert, WD/WN, No Apparent Distress, Obese Eye Exam: Bilateral Eye: Normal Inspection Ears: Normal External Exam, Normal Canal, Hearing Grossly Normal, Normal TMs Ear Exam: Bilateral Ear: Auricle Normal, Canal Normal, TM normal Nose: Normal Inspection, No Blood Throat/Mouth: Normal Inspection, Normal Lips, Normal Oropharynx, Normal Voice, No Airway Compromise Head: Atraumatic, Normocephalic Neck: Normal Inspection Respiratory/Chest: No Respiratory Distress, Lungs Clear, Normal Breath Sounds, No Accessory Muscle Use Cardiovascular: Regular Rate, Rhythm, No Edema GI/Abdominal: Normal Bowel Sounds, Soft, Non-Tender, No Distention Back Exam: Normal Inspection. No: CVA Tenderness (R), CVA Tenderness (L) Extremities: Normal Inspection, Normal Range of Motion, Non-Tender Neurological: CN II-XII Intact, Other (lethargic) Psychiatric: Flat Affect Skin Exam: Warm, Dry, Intact, Normal Color, Zoster-Like Rash (abdomen). No: No Rash Course - Vital Signs Last Recorded V/S: Last Vital Signs Temp 36.8 C 12/12/18 23:57 Pulse 75 12/12/18 23:57 Resp 16 12/12/18 23:57 BP 101/53 L 12/12/18 23:57 Pulse Ox 98 12/12/18 23:57 - Orders/Labs/Meds Labs: Laboratory Tests 12/13/18 12/13/18 12/13/18 Range/Units 00:05 00:05 00:05 WBC 4.9 (4.5-11.0) K/uL RBC 4.22 L (4.30-5.90) M/uL Hgb 11.8 L (12.0-15.0) g/dL Hct 36.1 L (40.0-54.0) % MCV 86 (80-98) fL MCH 28 (27-31) pg MCHC 33 (32-36) % Plt Count 101 L (150-400) K/uL Sodium 138 L (140-148) mmol/L Potassium 3.8 (3.6-5.2) mmol/L Chloride 100 (100-108) mmol/L Carbon Dioxide 25 (21-32) mmol/L Anion Gap 16.8 H (5.0-14.0) mmol/L BUN 57 H (7-18) mg/dL Creatinine 2.7 H (0.8-1.3) mg/dL Est Cr Clr Drug Dosing TNP Estimated GFR (MDRD) 23 L (>60) Glucose 169 H (74-106) mg/dL Calcium 8.2 L (8.5-10.1) mg/dL Troponin I < 0.017 (0.000-0.056) ng/mL Urine Color (YELLOW) Urine Appearance (CLEAR) Urine pH (5.0-8.0) Ur Specific [place] (1.008-1.030) Urine Protein (NEGATIVE) mg/dL Urine Glucose (UA) (NEGATIVE) mg/dL Urine Ketones (NEGATIVE) mg/dL Urine Occult Blood (NEGATIVE) Urine Nitrite (NEGATIVE) Urine Bilirubin (NEGATIVE) Urine Urobilinogen (0.2-1.0) EU/dL Ur Leukocyte Esterase (NEGATIVE) Urine RBC (0-5) Urine WBC (0-5) Ur Epithelial Cells Amorphous Sediment Urine Bacteria Urine Mucus 12/13/18 Range/Units 00:37 WBC (4.5-11.0) K/uL RBC (4.30-5.90) M/uL Hgb (12.0-15.0) g/dL Hct (40.0-54.0) % MCV (80-98) fL MCH (27-31) pg MCHC (32-36) % Plt Count (150-400) K/uL Sodium (140-148) mmol/L Potassium (3.6-5.2) mmol/L Chloride (100-108) mmol/L Carbon Dioxide (21-32) mmol/L Anion Gap (5.0-14.0) mmol/L BUN (7-18) mg/dL Creatinine (0.8-1.3) mg/dL Est Cr Clr Drug Dosing Estimated GFR (MDRD) (>60) Glucose (74-106) mg/dL Calcium (8.5-10.1) mg/dL Troponin I (0.000-0.056) ng/mL Urine Color Yellow (YELLOW) Urine Appearance Clear (CLEAR) Urine pH 5.5 (5.0-8.0) Ur Specific [place] 1.015 (1.008-1.030) Urine Protein 30 H (NEGATIVE) mg/dL Urine Glucose (UA) Negative (NEGATIVE) mg/dL Urine Ketones Negative (NEGATIVE) mg/dL Urine Occult Blood Negative (NEGATIVE) Urine Nitrite Negative (NEGATIVE) Urine Bilirubin Negative (NEGATIVE) Urine Urobilinogen 0.2 (0.2-1.0) EU/dL Ur Leukocyte Esterase Negative (NEGATIVE) Urine RBC 0-5 (0-5) Urine WBC 0-5 (0-5) Ur Epithelial Cells Rare Amorphous Sediment Few Urine Bacteria Moderate Urine Mucus Not seen Meds: Medications Discontinued Medications Generic Name Dose Route Start Last Admin Trade Name Freq PRN Reason Stop Dose Admin Lidocaine HCl 10 ml 12/13/18 00:13 12/13/18 00:37 Xylocaine 2% Jelly MUCMEM 12/13/18 00:14 10 ml ONETIME ONE Administration Departure - Departure Time of Disposition: 13:30 Disposition: Admitted As Inpatient 68 Condition: Fair Clinical Impression: Drug toxicity - Discharge Information *PRESCRIPTION DRUG MONITORING PROGRAM REVIEWED*: No *COPY OF PRESCRIPTION DRUG MONITORING REPORT IN PATIENT QUENTIN: No Referrals: PCP,None [Primary Care Provider] - Additional Instructions: Dr. Chicas to see in ER.
[2018-12-13] MEDS ORDERED: Sodium Chloride 0.9% 1,000 ML IV SCH ×2 (01:15→02:26)
--- NOTE | 2018-12-13 02:17 | PCM.HP.2 ---
H&P History of Present Illness - General Date of Service: 12/13/18 Admit Problem/Dx: Admission Diagnosis/Problem Admission Diagnosis/Problem Acute kidney injury superimposed on chronic kidney disease Source of Information: Patient, Provider History Limitations: Reports: Altered Mental Status - History of Present Illness Initial Comments - Free Text/Narative: CC: lethargic HPI: Jayden presents to the emergency room by ambulance today after his [employer] noted that he has been more lethargic, confused and hallucinating. He is lethargic and confused and does not provide reliable history. He is able to tell me that he is having pain on his left lower side where his shingles is at but he's not able to further characterize the pain. Per report from his [employer] [employer] [facility], he was diagnosed with shingles yesterday and started on valacyclovir. Since that time he developed the above-mentioned symptoms which have steadily progressed. He does tell me that he has not had much to eat in the last few days and has not had a bowel movement in several days but these were about the only useful pieces of history I could gather and I'm not sure if they are reliable or not. Workup in the emergency room revealed a creatinine of 2.7 with a baseline of 1.8. Impressive shingles rash is noted on the left side of his abdomen and lower back. There is concerned that he has accumulated the valacyclovir because of his poor kidney function. He will be admitted for management of acute kidney injury and his hypoactive delirium. - Related Data Allergies/Adverse Reactions: Allergies Allergy/AdvReac Type Severity Reaction Status Date / Time No Known Allergies Allergy Verified 12/13/18 00:00 Home Medications: Home Meds Allopurinol [Zyloprim] 300 mg PO DAILY 10/10/16 [History] Budesonide/Formoterol [Symbicort 160-4.5 MCG] 2 puff INH BID 10/10/16 [History] Pravastatin [Pravachol] 40 mg PO DAILY 10/10/16 [History] Acetaminophen [Pain Relief] 650 mg PO QID PRN 04/12/17 [History] Cyanocobalamin (Vitamin B-12) [Vitamin B-12] 1,000 mcg PO DAILY 04/12/17 [ History] Insulin Aspart [NovoLOG] See Protocol SQ TIDMEALS 04/12/17 [History] Insulin Glarg,Human.Rec.Analog [Lantus] 41 unit SUBCUT BEDTIME 04/12/17 [History ] Isosorbide Mononitrate [Isosorbide Mononitrate ER] 30 mg PO DAILY 04/12/17 [ History] Sertraline HCl 100 mg PO DAILY 04/12/17 [History] Albuterol Sulfate [Proair Respiclick] 2 puff INH Q4H PRN 04/14/17 [History] Aspirin [Halfprin] 81 mg PO BEDTIME 04/14/17 [History] Albuterol [Proventil] 1 inh INH Q4H PRN 05/02/17 [History] Furosemide [Lasix] 20 mg PO DAILY 05/06/17 [History] Potassium Chloride 10 meq PO DAILY 05/06/17 [History] Tamsulosin [Flomax] 2 tab PO DAILY 05/06/17 [History] Albuterol [Proventil Neb Soln] 2.5 mg .XX QID PRN 10/14/18 [History] Cholecalciferol (Vitamin D3) [Vitamin D3] 2,000 unit PO DAILY 10/14/18 [History] Metoprolol Succinate [Toprol XL] 25 mg PO DAILY 10/14/18 [History] Lactobacillus Rhamnosus GG [Culturelle] 1 cap PO BID #60 cap 10/19/18 [Rx] Sennosides/Docusate Sodium [Senna Plus Tablet] 1 tab PO BID PRN 12/13/18 [ History] valACYclovir HCl [Valacyclovir] 1 tab PO TID 12/13/18 [History] Past Medical History HEENT History: Reports: Cataract, Impaired Vision Other HEENT History: L carpel tunnel Cardiovascular History: Reports: Arrhythmia, CAD, High Cholesterol, Hypertension , Stents Other Cardiovascular History: 5 stents Respiratory History: Reports: Asthma, COPD, SOB, Other (See Below) Other Respiratory History: on inhaler Gastrointestinal History: Reports: Chronic Constipation Genitourinary History: Reports: Prostate Disorder, UTI, Recurrent, Other (See Below) Other Genitourinary History: slow flow Musculoskeletal History: Reports: Arthritis, Gout, Other (See Below) 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/17 Neurological History: Reports: TIA, Other (See Below) Other Neuro History: "passes out episodes-no diagnosis from MRI,CT" Psychiatric History: Reports: Anxiety, Dementia Endocrine/Metabolic History: Reports: Diabetes, Type II, IDDM, Obesity/BMI 30+, Vitamin D Deficiency Hematologic History: Reports: B12 Deficiency Immunologic History: Reports: None Oncologic (Cancer) History: Reports: Colon Dermatologic History: Reports: Other (See Below) Other Dermatologic History: age spots, - Infectious Disease History Infectious Disease History: Reports: Shingles Other Infectious Disease History: polio - Past Surgical History Head Surgeries/Procedures: Reports: None HEENT Surgical History: Reports: Cataract Surgery, Tonsillectomy Cardiovascular Surgical History: Reports: Coronary Artery Stent Respiratory Surgical History: Reports: None GI Surgical History: Reports: Colon, Colonoscopy, Hernia, Abdominal Male Surgical History: Reports: None Endocrine Surgical History: Reports: None Neurological Surgical History: Reports: None Musculoskeletal Surgical History: Reports: Joint Replacement, Knee Replacement Other Musculoskeletal Surgeries/Procedures:: right knee Oncologic Surgical History: Reports: None Dermatological Surgical History: Reports: None Social & Family History - Family History Family Medical History: Noncontributory - Tobacco Use Smoking Status *Q: Never Smoker - Caffeine Use Caffeine Use: Reports: Coffee, Soda - Alcohol Use Alcohol Use History: No - Recreational Drug Use Recreational Drug Use: No - Living Situation & Occupation Living situation: Reports: ( of 60 + years 7 years ago. Daughter this year from muscular dystrophy) Occupation: Disabled H&P Review of Systems - Review of Systems: Review Of Systems: Unable To Obtain (pt confused and lethargic) Exam - Exam Exam: See Below - Vital Signs Vital Signs: Last Vital Signs Temp 36.8 C 12/12/18 23:57 Pulse 75 12/12/18 23:57 Resp 16 12/12/18 23:57 BP 101/53 L 12/12/18 23:57 Pulse Ox 98 12/12/18 23:57 - Exam Quality Assessment: No: Supplemental Oxygen General: Alert, Cooperative, Lethargic. No: Oriented HEENT: Conjunctiva Clear. No: Mucosa Moist & [place] (dry), Scleral Icterus Neck: Supple, Trachea Midline. No: Lymphadenopathy Lungs: Normal Respiratory Effort, Wheezing (rare end exp in left base). No: Crackles Cardiovascular: Regular Rate, Regular Rhythm GI/Abdominal Exam: Normal Bowel Sounds, Soft, Non-Tender, No Distention Back Exam: Other (dressing covering sacral ulcer ). No: Full Range of Motion Extremities: No Pedal Edema. No: Increased Warmth Skin: Warm, Dry, Rash (vesicular rash with some de-roofed involving left lower abdomen and left lower back in dermatomal distribution) Neuro Extensive - Mental Status: Alert, Slow Response to Commands. No: Oriented x3 Neuro Extensive - Motor, Sensory, Reflexes: Dysarthria. No: Abnormal Motor, Tremor Psychiatric: Alert. No: Agitated - Patient Data Lab Results Last 24 hrs: Laboratory Results - last 24 hr 12/13/18 12/13/18 12/13/18 Range/Units 00:05 00:05 00:05 WBC 4.9 (4.5-11.0) K/uL RBC 4.22 L (4.30-5.90) M/uL Hgb 11.8 L (12.0-15.0) g/dL Hct 36.1 L (40.0-54.0) % MCV 86 (80-98) fL MCH 28 (27-31) pg MCHC 33 (32-36) % Plt Count 101 L (150-400) K/uL Sodium 138 L (140-148) mmol/L Potassium 3.8 (3.6-5.2) mmol/L Chloride 100 (100-108) mmol/L Carbon Dioxide 25 (21-32) mmol/L Anion Gap 16.8 H (5.0-14.0) mmol/L BUN 57 H (7-18) mg/dL Creatinine 2.7 H (0.8-1.3) mg/dL Est Cr Clr Drug Dosing TNP Estimated GFR (MDRD) 23 L (>60) Glucose 169 H (74-106) mg/dL Calcium 8.2 L (8.5-10.1) mg/dL Troponin I < 0.017 (0.000-0.056) ng/mL Urine Color (YELLOW) Urine Appearance (CLEAR) Urine pH (5.0-8.0) Ur Specific [place] (1.008-1.030) Urine Protein (NEGATIVE) mg/dL Urine Glucose (UA) (NEGATIVE) mg/dL Urine Ketones (NEGATIVE) mg/dL Urine Occult Blood (NEGATIVE) Urine Nitrite (NEGATIVE) Urine Bilirubin (NEGATIVE) Urine Urobilinogen (0.2-1.0) EU/dL Ur Leukocyte Esterase (NEGATIVE) Urine RBC (0-5) Urine WBC (0-5) Ur Epithelial Cells Amorphous Sediment Urine Bacteria Urine Mucus 12/13/18 Range/Units 00:37 WBC (4.5-11.0) K/uL RBC (4.30-5.90) M/uL Hgb (12.0-15.0) g/dL Hct (40.0-54.0) % MCV (80-98) fL MCH (27-31) pg MCHC (32-36) % Plt Count (150-400) K/uL Sodium (140-148) mmol/L Potassium (3.6-5.2) mmol/L Chloride (100-108) mmol/L Carbon Dioxide (21-32) mmol/L Anion Gap (5.0-14.0) mmol/L BUN (7-18) mg/dL Creatinine (0.8-1.3) mg/dL Est Cr Clr Drug Dosing Estimated GFR (MDRD) (>60) Glucose (74-106) mg/dL Calcium (8.5-10.1) mg/dL Troponin I (0.000-0.056) ng/mL Urine Color Yellow (YELLOW) Urine Appearance Clear (CLEAR) Urine pH 5.5 (5.0-8.0) Ur Specific [place] 1.015 (1.008-1.030) Urine Protein 30 H (NEGATIVE) mg/dL Urine Glucose (UA) Negative (NEGATIVE) mg/dL Urine Ketones Negative (NEGATIVE) mg/dL Urine Occult Blood Negative (NEGATIVE) Urine Nitrite Negative (NEGATIVE) Urine Bilirubin Negative (NEGATIVE) Urine Urobilinogen 0.2 (0.2-1.0) EU/dL Ur Leukocyte Esterase Negative (NEGATIVE) Urine RBC 0-5 (0-5) Urine WBC 0-5 (0-5) Ur Epithelial Cells Rare Amorphous Sediment Few Urine Bacteria Moderate Urine Mucus Not seen Result Diagrams: 12/13/18 00:05 12/13/18 00:05 *Q Meaningful Use (ADM) - VTE Risk Assess *Q Each Risk Factor Represents 1 Point: Obesity ( BMI > 25 kg/m2) Total Score 1 Point Risk Factors: 1 Each Risk Factor Represents 2 Points: Malignancy (present or previous) Total Score 2 Point Risk Factors: 2 Each Risk Factor Represents 3 Points: Age 75 Years or Greater Total Score 3 Point Risk Factors: 3 Each Risk Factor Represents 5 Points: None Total Score 5 Point Risk Factors: 0 Venous Thromboembolism Risk Factor Score *Q: 6 - Problem List (1) Acute kidney injury SNOMED Code(s): 77634993, 13727182 ICD Code: N17.9 - ACUTE KIDNEY FAILURE, UNSPECIFIED Status: Acute Current Visit: Yes (2) Drug toxicity SNOMED Code(s): 3339338 ICD Code: R89.2 - ABN LEV DRUG/MEDS/BIOL SUBST IN SPECIMENS FROM OTH ORG/ TISS Status: Acute Current Visit: Yes (3) Decubitus ulcer of back, stage 3 SNOMED Code(s): 623205828 ICD Code: L89.103 - PRESSURE ULCER OF UNSPECIFIED PART OF BACK, STAGE 3 Status: Chronic Current Visit: No (4) Type 2 diabetes mellitus SNOMED Code(s): 69488625 ICD Code: E11.9 - TYPE 2 DIABETES MELLITUS WITHOUT COMPLICATIONS Status: Chronic Priority: Medium Current Visit: No Qualifiers: Diabetes mellitus assisted insulin use: with ocean transportation intermediary use Diabetes mellitus complication status: without complication Qualified Code(s): E11.9 - Type 2 diabetes mellitus without complications; Z79.4 - terminal manager (current) use of insulin (5) Post-polio syndrome SNOMED Code(s): 15566546 ICD Code: G14 - POSTPOLIO SYNDROME Status: Chronic Current Visit: Yes Problem List Initiated/Reviewed/Updated: Yes Orders Last 24hrs: Active Orders 24 hr Category Date Time Status Patient Status Manage Transfer [TRANSFER] Routine ADT 12/13/18 02:03 Ordered Sodium Chloride 0.9% [Normal Saline] 1,000 ml Med 12/13/18 01:15 Active IV ASDIRECTED Resuscitation Status Routine Resus Stat 12/13/18 02:07 Ordered Medication Orders Sodium Chloride (Normal Saline) 1,000 mls @ 500 mls/hr IV ASDIRECTED JAYDEN Last Admin: 12/13/18 01:12 Dose: 500 mls/hr Assessment/Plan Comment:: ASSESSMENT AND PLAN - Acute kidney injury - likely related to his valacyclovir with possible contribution from poor intake and intravascular depletion. Baseline creatinine clearance is around 30 which puts him on the line between once and twice daily dosing of the valacyclovir and he has been receiving it 3 times daily. -IV fluids overnight -Repeat labs in about 5 hours Shingles - diagnosed yesterday with impressive rash noted on the left side. Treatment will be on hold until his kidney function improves and the medication clears from his system. -Reassess treatment when mental status improves Insulin-dependent diabetes mellitus - sugars acceptable at this time. -Continue long-acting insulin -Sliding-scale insulin Stage III sacral ulcer - he has been receiving home care for this ulcer which was present on admission. 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 He has a [employer]IO[employer]HETERIZATION at home 10 hours per day. Maintenance issues - - DVT prophylaxis - WILLOW stockings - GI prophylaxis - not indicated - Nutrition - diabetic diet - [place] catheter - not indicated at this time CODE STATUS - full code Admission justification - This patient will be admitted for inpatient services and is medically appropriate meeting medical necessity for inpatient admission as outlined in my documentation. I reasonably expect the patient will require inpatient services that span a period time over 2 midnights. I reasonably expect this patient to be discharged or transferred within 96 hours [facility]. Disposition - I would anticipate discharge home after the hospital stay Primary care physician - Jazzy Chicas M.D. - Mortality Measure Prognosis:: Good
[2018-12-13] MEDS ORDERED: LORazepam 2 MG/ML SDV IVPUSH PRN (02:26)
[2018-12-13] MEDS ORDERED: Albuterol 0.083% 2.5 MG/3 ML Neb Soln NEB PRN (02:26)
[2018-12-13] MEDS ORDERED: Magnesium Hydroxide 400 MG/5 ML Susp 30 ML Cup PO PRN (02:26)
[2018-12-13] MEDS ORDERED: Ondansetron 4 MG/2 ML SDV IV PRN (02:26)
[2018-12-13] MEDS ORDERED: Ondansetron 4 MG Tab.DIS PO PRN (02:26)
[2018-12-13] MEDS ORDERED: Fluticasone-Salmeterol 232-14 MCG Powder Inhalent INH SCH (07:00)
[2018-12-13] MEDS: Albuterol/Ipratropium 3.0-0.5 MG/3 ML Neb Soln NEB SCH ×4 (07:14→20:00)
[2018-12-13] MEDS: Insulin Lispro 100 Unit/ML 3 ML KwikPen SUBCUT SCH ×4 (08:14→21:19)
[2018-12-13] MEDS: Lactobacillus Rhamnosus GG (Probiotic) Cap PO SCH ×2 (09:48→19:59)
[2018-12-13] MEDS: Tamsulosin 0.4 MG Cap.ER PO SCH (09:48)
[2018-12-13] MEDS: Cyanocobalamin (Vitamin B12) 1,000 MCG Tab PO SCH (09:49)
[2018-12-13] MEDS: Sertraline 50 MG Tab PO SCH (09:50)
[2018-12-13] MEDS: Metoprolol Succinate 25 MG Tab.ER PO SCH (09:54)
--- NOTE | 2018-12-13 10:11 | PCM.PN ---
- General Info Date of Service: 12/13/18 Subjective Update: No acute events since admission. Still fairly lethargic. Speech is maybe a little bit better. Vital signs are stable. Patient remains weak. Dressing over his sacral ulcer was changed and this has healed significantly since the last time that I saw it. No fevers. Creatinine slightly better since last night. Patient still somewhat confused. Functional Status: Reports: Pain Controlled, Tolerating Diet - Review of Systems General: Reports: Weakness Neurological: Reports: Trouble Speaking - Patient Data Vitals - Most Recent: Last Vital Signs Temp 36.7 C 12/13/18 08:04 Pulse 85 12/13/18 09:54 Resp 18 12/13/18 08:04 BP 136/60 12/13/18 09:54 Pulse Ox 93 L 12/13/18 08:04 Weight - Most Recent: 111.72 kg I&O - Last 24 Hours: Intake & Output 12/12/18 12/13/18 12/13/18 22:59 06:59 14:59 Intake Total 308 600 Balance 308 600 Lab Results Last 24 Hours: Laboratory Results - last 24 hr 12/13/18 12/13/18 12/13/18 Range/Units 00:05 00:05 00:05 WBC 4.9 (4.5-11.0) K/uL RBC 4.22 L (4.30-5.90) M/uL Hgb 11.8 L (12.0-15.0) g/dL Hct 36.1 L (40.0-54.0) % MCV 86 (80-98) fL MCH 28 (27-31) pg MCHC 33 (32-36) % Plt Count 101 L (150-400) K/uL Sodium 138 L (140-148) mmol/L Potassium 3.8 (3.6-5.2) mmol/L Chloride 100 (100-108) mmol/L Carbon Dioxide 25 (21-32) mmol/L Anion Gap 16.8 H (5.0-14.0) mmol/L BUN 57 H (7-18) mg/dL Creatinine 2.7 H (0.8-1.3) mg/dL Est Cr Clr Drug Dosing TNP Estimated GFR (MDRD) 23 L (>60) Glucose 169 H (74-106) mg/dL Calcium 8.2 L (8.5-10.1) mg/dL Troponin I < 0.017 (0.000-0.056) ng/mL Urine Color (YELLOW) Urine Appearance (CLEAR) Urine pH (5.0-8.0) Ur Specific [place] (1.008-1.030) Urine Protein (NEGATIVE) mg/dL Urine Glucose (UA) (NEGATIVE) mg/dL Urine Ketones (NEGATIVE) mg/dL Urine Occult Blood (NEGATIVE) Urine Nitrite (NEGATIVE) Urine Bilirubin (NEGATIVE) Urine Urobilinogen (0.2-1.0) EU/dL Ur Leukocyte Esterase (NEGATIVE) Urine RBC (0-5) Urine WBC (0-5) Ur Epithelial Cells Amorphous Sediment Urine Bacteria Urine Mucus 12/13/18 12/13/18 Range/Units 00:37 08:00 WBC (4.5-11.0) K/uL RBC (4.30-5.90) M/uL Hgb (12.0-15.0) g/dL Hct (40.0-54.0) % MCV (80-98) fL MCH (27-31) pg MCHC (32-36) % Plt Count (150-400) K/uL Sodium 140 (140-148) mmol/L Potassium 3.6 (3.6-5.2) mmol/L Chloride 104 (100-108) mmol/L Carbon Dioxide 25 (21-32) mmol/L Anion Gap 11.4 (5.0-14.0) mmol/L BUN 53 H (7-18) mg/dL Creatinine 2.4 H (0.8-1.3) mg/dL Est Cr Clr Drug Dosing 24.97 Estimated GFR (MDRD) 26 L (>60) Glucose 90 (74-106) mg/dL Calcium 8.2 L (8.5-10.1) mg/dL Troponin I (0.000-0.056) ng/mL Urine Color Yellow (YELLOW) Urine Appearance Clear (CLEAR) Urine pH 5.5 (5.0-8.0) Ur Specific [place] 1.015 (1.008-1.030) Urine Protein 30 H (NEGATIVE) mg/dL Urine Glucose (UA) Negative (NEGATIVE) mg/dL Urine Ketones Negative (NEGATIVE) mg/dL Urine Occult Blood Negative (NEGATIVE) Urine Nitrite Negative (NEGATIVE) Urine Bilirubin Negative (NEGATIVE) Urine Urobilinogen 0.2 (0.2-1.0) EU/dL Ur Leukocyte Esterase Negative (NEGATIVE) Urine RBC 0-5 (0-5) Urine WBC 0-5 (0-5) Ur Epithelial Cells Rare Amorphous Sediment Few Urine Bacteria Moderate Urine Mucus Not seen Med Orders - Current: Current Medications Acetaminophen (Tylenol) 650 mg PO Q4H PRN PRN Reason: Pain (Mild 1-3)/fever Albuterol (Proventil Neb Soln) 2.5 mg NEB Q4H PRN PRN Reason: Shortness Of Breath/wheezing Albuterol/Ipratropium (Duoneb 3.0-0.5 Mg/3 Ml) 3 ml NEB QIDRT [facility] Last Admin: 12/13/18 07:14 Dose: 3 ml Aspirin (Halfprin) 81 mg PO BEDTIME [facility] Cyanocobalamin (Vitamin B12) 1,000 mcg PO DAILY [facility] Last Admin: 12/13/18 09:49 Dose: 1,000 mcg Furosemide (Lasix) 20 mg PO DAILY [facility] Sodium Chloride (Normal Saline) 1,000 mls @ 125 mls/hr IV ASDIRECTED [facility] Last Admin: 12/13/18 05:02 Dose: 125 mls/hr Potassium Chloride 20 meq/Lidocaine HCl 2 ml/ Sodium Chloride 112 mls @ 50 mls/ hr IV Q2H [facility] Stop: 12/13/18 13:59 Insulin Glargine (Lantus Solostar) 41 units SUBCUT BEDTIME [facility] Insulin Human Lispro (Humalog) 0 unit SUBCUT QIDACANDBED [facility]; Protocol Last Admin: 12/13/18 08:14 Dose: Not Given Lactobacillus Rhamnosus (Culturelle) 1 cap PO BID [facility] Last Admin: 12/13/18 09:48 Dose: 1 cap Lorazepam (Ativan) 0.5 mg IVPUSH Q4H PRN PRN Reason: Nausea/Vomiting Magnesium Hydroxide (Milk Of Magnesia) 30 ml PO Q12H PRN PRN Reason: Constipation Metoprolol Succinate (Toprol Xl) 25 mg PO DAILY [facility] Last Admin: 12/13/18 09:54 Dose: 25 mg Ondansetron HCl (Zofran Odt) 4 mg PO Q6H PRN PRN Reason: Nausea able to take PO Ondansetron HCl (Zofran) 4 mg IV Q6H PRN PRN Reason: Nausea/Vomiting Oxycodone HCl (Oxycodone) 5 mg PO Q4H PRN PRN Reason: Pain Fluticasone/Salmeterol (Fluticasone-Salmeterol 232-14 Mcg Powder Inha) 0 puff INH BIDRT [facility] Senna/Docusate Sodium (Senna Plus) 1 tab PO BID PRN PRN Reason: Constipation Sertraline HCl (Zoloft) 100 mg PO DAILY [facility] Last Admin: 12/13/18 09:50 Dose: 100 mg Tamsulosin HCl (Flomax) 0.8 mg PO DAILY [facility] Last Admin: 12/13/18 09:48 Dose: 0.8 mg Discontinued Medications Sodium Chloride (Normal Saline) 1,000 mls @ 500 mls/hr IV ASDIRECTED [facility] Last Admin: 12/13/18 01:12 Dose: 500 mls/hr Insulin Glargine (Lantus Solostar) 41 units SUBCUT BEDTIME [facility] Lidocaine HCl (Xylocaine 2% Jelly) 10 ml MUCMEM ONETIME ONE Stop: 12/13/18 00:14 Last Admin: 12/13/18 00:37 Dose: 10 ml Fluticasone/Salmeterol (Fluticasone-Salmeterol 232-14 Mcg Powder Inha) 1 puff INH BIDRT [facility] - Exam General: Alert, Cooperative, No Acute Distress, Lethargic. No: Oriented HEENT: Pupils Equal Lungs: Normal Respiratory Effort GI/Abdominal Exam: Soft, No Distention Extremities: No Pedal Edema. No: Increased Warmth Skin: Warm, Dry, Rash (vesicular rash left lower abdomen and lower back ) Wound/Incisions: Other (stage I healing ulcer on sacrum ) Psy/Mental Status: Alert, Normal Affect - Problem List & Annotations (1) Acute kidney injury SNOMED Code(s): 32271523, 70701153 Code(s): N17.9 - ACUTE KIDNEY FAILURE, UNSPECIFIED Status: Acute Current Visit: Yes (2) Drug toxicity SNOMED Code(s): 8938224 Code(s): R89.2 - ABN LEV DRUG/MEDS/BIOL SUBST IN SPECIMENS FROM OTH ORG/TISS Status: Acute Current Visit: Yes (3) Decubitus ulcer of back, stage 3 SNOMED Code(s): 225360820 Code(s): L89.103 - PRESSURE ULCER OF UNSPECIFIED PART OF BACK, STAGE 3 Status: Chronic Current Visit: No (4) Type 2 diabetes mellitus SNOMED Code(s): 68236590 Code(s): E11.9 - TYPE 2 DIABETES MELLITUS WITHOUT COMPLICATIONS Status: Chronic Priority: Medium Current Visit: No Qualifiers: Diabetes mellitus half-way insulin use: with half-way use Diabetes mellitus complication status: without complication Qualified Code(s): E11.9 - Type 2 diabetes mellitus without complications; Z79.4 - [facility] (current) use of insulin (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 Code(s): 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 - POSTPOLIO SYNDROME Status: Chronic Current Visit: Yes - Problem List Review Problem List Initiated/Reviewed/Updated: Yes - My Orders Last 24 Hours: My Active Orders 12/13/18 02:07 Resuscitation Status Routine 12/13/18 02:26 Patient Status [ADT] Routine Antiembolic Devices [RC] .Routine Bedrest Bathroom Privileges [RC] ASDIRECTED Communication Order [RC] PRN Communication Order [RC] PRN Diabetes Education [RC] Click to Edit Intake and Output [RC] QSHIFT Notify Provider Vital Signs [RC] ASDIRECTED Notify Provider [RC] .PRN Oxygen Therapy [RC] .PRN RT Aerosol Therapy [RC] ASDIRECTED VTE/DVT Education [RC] Per Unit Routine Vital Signs [RC] Q4H Acetaminophen [Tylenol] 650 mg PO Q4H PRN Albuterol [Proventil Neb Soln] 2.5 mg NEB Q4H PRN Docusate Sodium/Sennosides [Senna Plus] 1 tab PO BID PRN LORazepam [Ativan] 0.5 mg IVPUSH Q4H PRN Magnesium Hydroxide [Milk of Magnesia] 30 ml PO Q12H PRN Ondansetron [Zofran ODT] 4 mg PO Q6H PRN Ondansetron [Zofran] 4 mg IV Q6H PRN Sodium Chloride 0.9% [Normal Saline] 1,000 ml IV ASDIRECTED oxyCODONE 5 mg PO Q4H PRN Antiembolic Hose [OM.PC] Routine 12/13/18 07:00 Albuterol/Ipratropium [DuoNeb 3.0-0.5 MG/3 ML] 3 ml NEB QIDRT Insulin Lispro [HumaLOG] See Protocol SUBCUT QIDACANDBED 12/13/18 09:00 Cyanocobalamin (Vitamin B12) [Vitamin B12] 1,000 mcg PO DAILY Fluticasone/Salmeterol [Fluticasone-Salmeterol 232-14 MCG Powder Inha] 0 puff INH BIDRT Lactobacillus Rhamnosus GG [Culturelle] 1 cap PO BID Metoprolol Succinate [Toprol XL] 25 mg PO DAILY Sertraline [Zoloft] 100 mg PO DAILY Tamsulosin [Flomax] 0.8 mg PO DAILY 12/13/18 10:00 Potassium Chloride 20 meq Lidocaine 1% [Xylocaine 1%] 2 ml Sodium Chloride 0.9 % [Normal Saline] 100 ml IV Q2H 12/13/18 10:09 Discontinue Telemetry Monitoring [Cardiac Monitoring Discontinue] [RC] Click to Edit 12/13/18 10:15 Sodium Chloride 0.9% [Normal Saline] 1,000 ml IV ASDIRECTED 12/13/18 11:30 GLUCOSE POC LAB TO COLLECT [POC] QIDACANDBED 12/13/18 16:30 GLUCOSE POC LAB TO COLLECT [POC] QIDACANDBED 12/13/18 21:00 GLUCOSE POC LAB TO COLLECT [POC] QIDACANDBED Aspirin [Halfprin] 81 mg PO BEDTIME Insulin Glarg,Human.Rec.Analog [LantUS Solostar] 41 units SUBCUT BEDTIME 12/13/18 Breakfast Consistent Carbohydrate Diet [DIET] 12/14/18 05:11 BASIC METABOLIC PANEL,BMP [CHEM] AM CBC W/O DIFF,HEMOGRAM [HEME] AM 12/14/18 07:30 GLUCOSE POC LAB TO COLLECT [POC] QIDACANDBED 12/14/18 09:00 Furosemide [Lasix] 20 mg PO DAILY 12/14/18 11:30 GLUCOSE POC LAB TO COLLECT [POC] QIDACANDBED 12/14/18 16:30 GLUCOSE POC LAB TO COLLECT [POC] QIDACANDBED 12/14/18 21:00 GLUCOSE POC LAB TO COLLECT [POC] QIDACANDBED 12/15/18 07:30 GLUCOSE POC LAB TO COLLECT [POC] QIDACANDBED 12/15/18 11:30 GLUCOSE POC LAB TO COLLECT [POC] QIDACANDBED 12/15/18 16:30 GLUCOSE POC LAB TO COLLECT [POC] QIDACANDBED 12/15/18 21:00 GLUCOSE POC LAB TO COLLECT [POC] QIDACANDBED 12/16/18 07:30 GLUCOSE POC LAB TO COLLECT [POC] QIDACANDBED 12/16/18 11:30 GLUCOSE POC LAB TO COLLECT [POC] QIDACANDBED 12/16/18 16:30 GLUCOSE POC LAB TO COLLECT [POC] QIDACANDBED 12/16/18 21:00 GLUCOSE POC LAB TO COLLECT [POC] QIDACANDBED 12/17/18 07:30 GLUCOSE POC LAB TO COLLECT [POC] QIDACANDBED 12/17/18 11:30 GLUCOSE POC LAB TO COLLECT [POC] QIDACANDBED 12/17/18 16:30 GLUCOSE POC LAB TO COLLECT [POC] QIDACANDBED 12/17/18 21:00 GLUCOSE POC LAB TO COLLECT [POC] QIDACANDBED 12/18/18 07:30 GLUCOSE POC LAB TO COLLECT [POC] QIDACANDBED 12/18/18 11:30 GLUCOSE POC LAB TO COLLECT [POC] QIDACANDBED - Plan Plan:: ASSESSMENT AND PLAN - Acute kidney injury - likely related to his valacyclovir with possible contribution from poor intake and intravascular depletion. Creatinine slightly better today. Still appears dry and dehydrated on examination. -IV fluids overnight -Repeat labs in about 5 hours Hypoactive delirium - likely secondary to too large of a dose of valacyclovir for his kidney function. Clinically he is a little better but still confused and difficult to understand. -Continue to hold valacyclovir Shingles - diagnosed 12/11 with impressive rash noted on the left side. Treatment will be on hold until his kidney function improves and the medication clears from his system. -Reassess treatment when mental status improves Insulin-dependent diabetes mellitus - sugars on the low side and oral intake poor. -Continue long-acting insulin with reduced dose tonight -Sliding-scale insulin Stage III sacral ulcer - he has been receiving home care for this ulcer which was present on admission. 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 He has a TALENT DEVELOPMENT DIRECTOR at home 10 hours per day. Maintenance issues - - DVT prophylaxis - WILLOW stockings - GI prophylaxis - not indicated - Nutrition - diabetic diet - Munroe catheter - not indicated at this time CODE STATUS - full code Admission justification - This patient will be admitted for inpatient services and is medically appropriate meeting medical necessity for inpatient admission as outlined in my documentation. I reasonably expect the patient will require inpatient services that span a period time over 2 midnights. I reasonably expect this patient to be discharged or transferred within 96 hours after admission to the [facility]. Disposition - I would anticipate discharge home after the hospital stay Primary care physician - Jazzy Chicas M.D.
[2018-12-13] MEDS: Potassium Chloride 20 MEQ, Lidocaine 1% 2 ML in Sodium Chloride 0.9% 100 ML IV SCH ×2 (10:29→12:32)
[2018-12-13] MEDS: Fluticasone-Salmeterol 232-14 MCG Powder Inhalent INH SCH ×2 (10:40→19:59)
[2018-12-13] MEDS: Aspirin 81 MG Tab.EC PO SCH (19:59)
[2018-12-13] MEDS ORDERED: Dimethicone 20%/Zinc Oxide 25% 56 GM Spray Bottle TOP PRN (20:10)
[2018-12-13] MEDS ORDERED: Dimethicone 20%/Zinc Oxide 25% 56 GM Spray Bottle TOP ONE (20:18)
[2018-12-13] MEDS ORDERED: Insulin Glargine,Human Rec. Analog 100 Units/ML 3 ML Pen SUBCUT SCH ×2 (21:00)
[2018-12-13] MEDS: Insulin Glargine,Human Rec. Analog 100 Units/ML 3 ML Pen SUBCUT SCH (21:21)
[2018-12-13] MEDS: Sodium Chloride 0.9% 1,000 ML IV SCH (21:52)
[2018-12-14] MEDS: Albuterol/Ipratropium 3.0-0.5 MG/3 ML Neb Soln NEB SCH ×4 (07:03→20:19)
[2018-12-14] MEDS: Fluticasone-Salmeterol 232-14 MCG Powder Inhalent INH SCH ×2 (07:03→20:19)
[2018-12-14] MEDS: Sodium Chloride 0.9% 1,000 ML IV SCH (07:57)
[2018-12-14] MEDS: Insulin Lispro 100 Unit/ML 3 ML KwikPen SUBCUT SCH ×4 (08:09→22:02)
[2018-12-14] MEDS ORDERED: Potassium Chloride 20 MEQ Tab.ER PO ONE ×2 (09:00→17:00)
[2018-12-14] MEDS: Sertraline 50 MG Tab PO SCH (09:40)
[2018-12-14] MEDS: Lactobacillus Rhamnosus GG (Probiotic) Cap PO SCH ×2 (09:40→20:19)
[2018-12-14] MEDS: Furosemide 20 MG Tab PO SCH (09:41)
[2018-12-14] MEDS: Tamsulosin 0.4 MG Cap.ER PO SCH (09:41)
[2018-12-14] MEDS: Metoprolol Succinate 25 MG Tab.ER PO SCH (09:41)
[2018-12-14] MEDS: Cyanocobalamin (Vitamin B12) 1,000 MCG Tab PO SCH (09:42)
--- NOTE | 2018-12-14 12:57 | PCM.PN ---
- General Info Date of Service: 12/14/18 Subjective Update: Mr. Silva has been stable since yesterday, good vital signs and no significant temperature elevation. He remains lethargic with minimal speech. Denies significant pain related to area of herpes zoster. Otherwise he is been unable to provide meaningful history concerning symptoms or review of systems because of his lethargy. - Patient Data Vitals - Most Recent: Last Vital Signs Temp 98.3 F 12/14/18 10:56 Pulse 86 12/14/18 10:56 Resp 18 12/14/18 10:56 BP 152/101 H 12/14/18 10:56 Pulse Ox 96 12/14/18 10:56 Weight - Most Recent: 246 lb 4.807 oz I&O - Last 24 Hours: Intake & Output 12/13/18 12/14/18 12/14/18 22:59 06:59 14:59 Intake Total 1693 1251 440 Output Total 305 150 275 Balance 1388 1101 165 Lab Results Last 24 Hours: Laboratory Results - last 24 hr 12/14/18 12/14/18 Range/Units 05:36 05:36 WBC 4.6 (4.5-11.0) K/uL RBC 4.50 (4.30-5.90) M/uL Hgb 12.0 (12.0-15.0) g/dL Hct 38.3 L (40.0-54.0) % MCV 85 (80-98) fL MCH 27 (27-31) pg MCHC 31 L (32-36) % Plt Count 127 L (150-400) K/uL Sodium 140 (140-148) mmol/L Potassium 3.5 L (3.6-5.2) mmol/L Chloride 106 (100-108) mmol/L Carbon Dioxide 22 (21-32) mmol/L Anion Gap 15.5 H (5.0-14.0) mmol/L BUN 37 H (7-18) mg/dL Creatinine 1.7 H (0.8-1.3) mg/dL Est Cr Clr Drug Dosing 35.25 mL/min Estimated GFR (MDRD) 38 L (>60) Glucose 77 (74-106) mg/dL Calcium 7.8 L (8.5-10.1) mg/dL Med Orders - Current: Current Medications Acetaminophen (Tylenol) 650 mg PO Q4H PRN PRN Reason: Pain (Mild 1-3)/fever Albuterol (Proventil Neb Soln) 2.5 mg NEB Q4H PRN PRN Reason: Shortness Of Breath/wheezing Albuterol/Ipratropium (Duoneb 3.0-0.5 Mg/3 Ml) 3 ml NEB QIDRT [facility] Last Admin: 12/14/18 10:52 Dose: 3 ml Aspirin (Halfprin) 81 mg PO BEDTIME [facility] Last Admin: 12/13/18 19:59 Dose: 81 mg Cyanocobalamin (Vitamin B12) 1,000 mcg PO DAILY [facility] Last Admin: 12/14/18 09:42 Dose: 1,000 mcg Dimethicone/Zinc Oxide (Rash Relief-Zinc Oxide [place]) 0 gm TOP ASDIRECTED PRN PRN Reason: Rash Last Admin: 12/13/18 20:23 Dose: 1 bottle Furosemide (Lasix) 20 mg PO DAILY [facility] Last Admin: 12/14/18 09:41 Dose: 20 mg Sodium Chloride (Normal Saline) 1,000 mls @ 50 mls/hr IV ASDIRECTED [facility] Insulin Glargine (Lantus Solostar) 22 units SUBCUT BEDTIME [facility] Last Admin: 12/13/18 21:21 Dose: 22 units Insulin Human Lispro (Humalog) 0 unit SUBCUT QIDACANDBED [facility]; Protocol Last Admin: 12/14/18 12:15 Dose: Not Given Lactobacillus Rhamnosus (Culturelle) 1 cap PO BID [facility] Last Admin: 12/14/18 09:40 Dose: 1 cap Lorazepam (Ativan) 0.5 mg IVPUSH Q4H PRN PRN Reason: Nausea/Vomiting Magnesium Hydroxide (Milk Of Magnesia) 30 ml PO Q12H PRN PRN Reason: Constipation Metoprolol Succinate (Toprol Xl) 25 mg PO DAILY [facility] Last Admin: 12/14/18 09:41 Dose: 25 mg Ondansetron HCl (Zofran Odt) 4 mg PO Q6H PRN PRN Reason: Nausea able to take PO Ondansetron HCl (Zofran) 4 mg IV Q6H PRN PRN Reason: Nausea/Vomiting Oxycodone HCl (Oxycodone) 5 mg PO Q4H PRN PRN Reason: Pain Potassium Chloride (Klor-Con M20) 40 meq PO ONETIME ONE Stop: 12/14/18 17:01 Fluticasone/Salmeterol (Fluticasone-Salmeterol 232-14 Mcg Powder Inha) 0 puff INH BIDRT [facility] Last Admin: 12/14/18 07:03 Dose: 1 puff Senna/Docusate Sodium (Senna Plus) 1 tab PO BID PRN PRN Reason: Constipation Sertraline HCl (Zoloft) 100 mg PO DAILY [facility] Last Admin: 12/14/18 09:40 Dose: 100 mg Tamsulosin HCl (Flomax) 0.8 mg PO DAILY [facility] Last Admin: 12/14/18 09:41 Dose: 0.8 mg Discontinued Medications Dimethicone/Zinc Oxide (Rash Relief-Zinc Oxide [place]) Confirm Administered Dose 56 gm TOP .STK-MED ONE Stop: 12/13/18 20:19 Last Admin: 12/13/18 20:23 Dose: Not Given Sodium Chloride (Normal Saline) 1,000 mls @ 500 mls/hr IV ASDIRECTED [facility] Last Admin: 12/13/18 01:12 Dose: 500 mls/hr Sodium Chloride (Normal Saline) 1,000 mls @ 125 mls/hr IV ASDIRECTED [facility] Last Admin: 12/13/18 05:02 Dose: 125 mls/hr Potassium Chloride 20 meq/Lidocaine HCl 2 ml/ Sodium Chloride 112 mls @ 50 mls/ hr IV Q2H [facility] Stop: 12/13/18 13:59 Last Admin: 12/13/18 12:32 Dose: 50 mls/hr Sodium Chloride (Normal Saline) 1,000 mls @ 100 mls/hr IV ASDIRECTED [facility] Last Admin: 12/14/18 07:57 Dose: 100 mls/hr Insulin Glargine (Lantus Solostar) 41 units SUBCUT BEDTIME [facility] Insulin Glargine (Lantus Solostar) 41 units SUBCUT BEDTIME [facility] Lidocaine HCl (Xylocaine 2% Jelly) 10 ml MUCMEM ONETIME ONE Stop: 12/13/18 00:14 Last Admin: 12/13/18 00:37 Dose: 10 ml Potassium Chloride (Klor-Con M20) 40 meq PO ONETIME ONE Stop: 12/14/18 09:01 Last Admin: 12/14/18 09:45 Dose: 40 meq Fluticasone/Salmeterol (Fluticasone-Salmeterol 232-14 Mcg Powder Inha) 1 puff INH BIDRT [facility] Last Admin: 12/13/18 14:27 Dose: Not Given - Exam Quality Assessment: DVT Prophylaxis General: Lethargic Lungs: Clear to Auscultation, Normal Respiratory Effort Cardiovascular: Regular Rate, Regular Rhythm, No Murmurs GI/Abdominal Exam: Soft, Non-Tender, No Organomegaly, No Distention Extremities: Non-Tender, No Pedal Edema Skin: Other (large area of herpes zoster left back and abdominal wall) - Problem List Review Problem List Initiated/Reviewed/Updated: Yes - My Orders Last 24 Hours: My Active Orders 12/14/18 13:00 Sodium Chloride 0.9% @ 50 MLS/HR(1000ml) Sodium Chloride 0.9% [Normal Saline] 1 ,000 ml IV ASDIRECTED 12/14/18 17:00 Potassium Chloride [Klor-Con M20] 40 meq PO ONETIME ONE 12/15/18 05:00 BASIC METABOLIC PANEL,BMP [CHEM] Timed - Plan Plan:: ASSESSMENT AND PLAN - Acute kidney injury - significantly improved with hydration, creatinine appears to be back to baseline -decrease IV rate to 50 mL per hour Hypoactive delirium - likely secondary to too large of a dose of valacyclovir for his kidney function. Clinically he is a little better but still confused and difficult to understand and lethargic -Continue to hold valacyclovir Shingles - diagnosed 12/11 with impressive rash noted on the left side. Treatment will be on hold until his kidney function improves and the medication clears from his system. -Reassess treatment when mental status improves Insulin-dependent diabetes mellitus - sugars on the low side and oral intake poor. -Continue long-acting insulin with reduced dose -4 times a day glucometers -Sliding-scale insulin Stage III sacral ulcer/present on admission - he has been receiving home care for this ulcer which was present on admission. 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 He has a NURSING SUPPORT WORKER at home 10 hours per day. Maintenance issues - - DVT prophylaxis - WILLOW stockings - GI prophylaxis - not indicated - Nutrition - diabetic diet - Munroe catheter - not indicated at this time CODE STATUS - full code Admission justification - This patient will be admitted for inpatient services and is medically appropriate meeting medical necessity for inpatient admission as outlined in my documentation. I reasonably expect the patient will require inpatient services that span a period time over 2 midnights. I reasonably expect this patient to be discharged or transferred within 96 hours after admission to the [facility]. Disposition - I would anticipate discharge home after the hospital stay Primary care physician - Jazzy Payne MD
[2018-12-14] MEDS ORDERED: Sodium Chloride 0.9% 1,000 ML IV SCH (13:00)
[2018-12-14] MEDS: Aspirin 81 MG Tab.EC PO SCH (20:19)
[2018-12-14] MEDS: Insulin Glargine,Human Rec. Analog 100 Units/ML 3 ML Pen SUBCUT SCH (21:28)
[2018-12-15] MEDS: Insulin Lispro 100 Unit/ML 3 ML KwikPen SUBCUT SCH ×4 (07:27→21:25)
[2018-12-15] MEDS: Albuterol/Ipratropium 3.0-0.5 MG/3 ML Neb Soln NEB SCH ×4 (07:31→21:22)
[2018-12-15] MEDS: Fluticasone-Salmeterol 232-14 MCG Powder Inhalent INH SCH ×2 (07:36→21:27)
[2018-12-15] MEDS: Lactobacillus Rhamnosus GG (Probiotic) Cap PO SCH ×2 (08:41→21:24)
[2018-12-15] MEDS: Sertraline 50 MG Tab PO SCH (08:41)
[2018-12-15] MEDS: Cyanocobalamin (Vitamin B12) 1,000 MCG Tab PO SCH (08:42)
[2018-12-15] MEDS: Furosemide 20 MG Tab PO SCH (08:42)
[2018-12-15] MEDS: Tamsulosin 0.4 MG Cap.ER PO SCH (08:42)
[2018-12-15] MEDS: Metoprolol Succinate 25 MG Tab.ER PO SCH (08:43)
[2018-12-15] MEDS: Acetaminophen 325 MG Tab PO PRN ×2 (12:04→19:40)
--- NOTE | 2018-12-15 13:07 | PCM.PN ---
- General Info Date of Service: 12/15/18 Subjective Update: Mr. Silva shown improvement over last 24 hours, more alert and interactive. Not yet back to baseline, but significantly improved. Continues to experience pain related to his shingles and is willing to consider short-term senior care placement. - Review of Systems General: Reports: Weakness. Denies: Fever, Chills Pulmonary: Reports: No Symptoms Cardiovascular: Reports: No Symptoms Gastrointestinal: Reports: No Symptoms Skin: Reports: Other (Estelle left back and abdominal wall) - Patient Data Vitals - Most Recent: Last Vital Signs Temp 97.7 F 12/15/18 11:59 Pulse 89 12/15/18 11:59 Resp 16 12/15/18 11:59 BP 127/60 12/15/18 11:59 Pulse Ox 93 L 12/15/18 11:59 Weight - Most Recent: 246 lb 4.807 oz I&O - Last 24 Hours: Intake & Output 12/14/18 12/15/18 12/15/18 22:59 06:59 14:59 Intake Total 1412 200 Output Total 460 Balance 952 200 Lab Results Last 24 Hours: Laboratory Results - last 24 hr 12/15/18 Range/Units 05:00 Sodium 140 (140-148) mmol/L Potassium 4.1 (3.6-5.2) mmol/L Chloride 105 (100-108) mmol/L Carbon Dioxide 24 (21-32) mmol/L Anion Gap 10.8 (5.0-14.0) mmol/L BUN 30 H (7-18) mg/dL Creatinine 1.6 H (0.8-1.3) mg/dL Est Cr Clr Drug Dosing 37.27 mL/min Estimated GFR (MDRD) 41 L (>60) Glucose 105 (74-106) mg/dL Calcium 8.3 L (8.5-10.1) mg/dL Med Orders - Current: Current Medications Acetaminophen (Tylenol) 650 mg PO Q4H PRN PRN Reason: Pain (Mild 1-3)/fever Last Admin: 12/15/18 12:04 Dose: 650 mg Albuterol (Proventil Neb Soln) 2.5 mg NEB Q4H PRN PRN Reason: Shortness Of Breath/wheezing Albuterol/Ipratropium (Duoneb 3.0-0.5 Mg/3 Ml) 3 ml NEB QIDRT [facility] Last Admin: 12/15/18 10:38 Dose: 3 ml Aspirin (Halfprin) 81 mg PO BEDTIME [facility] Last Admin: 12/14/18 20:19 Dose: 81 mg Cyanocobalamin (Vitamin B12) 1,000 mcg PO DAILY [facility] Last Admin: 12/15/18 08:42 Dose: 1,000 mcg Dimethicone/Zinc Oxide (Rash Relief-Zinc Oxide [place]) 0 gm TOP ASDIRECTED PRN PRN Reason: Rash Last Admin: 12/13/18 20:23 Dose: 1 bottle Furosemide (Lasix) 20 mg PO DAILY [facility] Last Admin: 12/15/18 08:42 Dose: 20 mg Insulin Glargine (Lantus Solostar) 22 units SUBCUT BEDTIME [facility] Last Admin: 12/14/18 21:28 Dose: 22 units Insulin Human Lispro (Humalog) 0 unit SUBCUT QIDACANDBED [facility]; Protocol Last Admin: 12/15/18 11:54 Dose: Not Given Lactobacillus Rhamnosus (Culturelle) 1 cap PO BID [facility] Last Admin: 12/15/18 08:41 Dose: 1 cap Lorazepam (Ativan) 0.5 mg IVPUSH Q4H PRN PRN Reason: Nausea/Vomiting Magnesium Hydroxide (Milk Of Magnesia) 30 ml PO Q12H PRN PRN Reason: Constipation Metoprolol Succinate (Toprol Xl) 25 mg PO DAILY [facility] Last Admin: 12/15/18 08:43 Dose: 25 mg Ondansetron HCl (Zofran Odt) 4 mg PO Q6H PRN PRN Reason: Nausea able to take PO Ondansetron HCl (Zofran) 4 mg IV Q6H PRN PRN Reason: Nausea/Vomiting Oxycodone HCl (Oxycodone) 5 mg PO Q4H PRN PRN Reason: Pain Fluticasone/Salmeterol (Fluticasone-Salmeterol 232-14 Mcg Powder Inha) 0 puff INH BIDRT [facility] Last Admin: 12/15/18 07:36 Dose: 1 puff Senna/Docusate Sodium (Senna Plus) 1 tab PO BID PRN PRN Reason: Constipation Sertraline HCl (Zoloft) 100 mg PO DAILY [facility] Last Admin: 12/15/18 08:41 Dose: 100 mg Tamsulosin HCl (Flomax) 0.8 mg PO DAILY [facility] Last Admin: 12/15/18 08:42 Dose: 0.8 mg Discontinued Medications Dimethicone/Zinc Oxide (Rash Relief-Zinc Oxide [place]) Confirm Administered Dose 56 gm TOP .STK-MED ONE Stop: 12/13/18 20:19 Last Admin: 12/13/18 20:23 Dose: Not Given Sodium Chloride (Normal Saline) 1,000 mls @ 500 mls/hr IV ASDIRECTED [facility] Last Admin: 12/13/18 01:12 Dose: 500 mls/hr Sodium Chloride (Normal Saline) 1,000 mls @ 125 mls/hr IV ASDIRECTED [facility] Last Admin: 12/13/18 05:02 Dose: 125 mls/hr Potassium Chloride 20 meq/Lidocaine HCl 2 ml/ Sodium Chloride 112 mls @ 50 mls/ hr IV Q2H [facility] Stop: 12/13/18 13:59 Last Admin: 12/13/18 12:32 Dose: 50 mls/hr Sodium Chloride (Normal Saline) 1,000 mls @ 100 mls/hr IV ASDIRECTED [facility] Last Admin: 12/14/18 07:57 Dose: 100 mls/hr Sodium Chloride (Normal Saline) 1,000 mls @ 50 mls/hr IV ASDIRECTED [facility] Last Admin: 12/14/18 22:30 Dose: 50 mls/hr Insulin Glargine (Lantus Solostar) 41 units SUBCUT BEDTIME [facility] Insulin Glargine (Lantus Solostar) 41 units SUBCUT BEDTIME [facility] Lidocaine HCl (Xylocaine 2% Jelly) 10 ml MUCMEM ONETIME ONE Stop: 12/13/18 00:14 Last Admin: 12/13/18 00:37 Dose: 10 ml Potassium Chloride (Klor-Con M20) 40 meq PO ONETIME ONE Stop: 12/14/18 09:01 Last Admin: 12/14/18 09:45 Dose: 40 meq Potassium Chloride (Klor-Con M20) 40 meq PO ONETIME ONE Stop: 12/14/18 17:01 Last Admin: 12/14/18 17:08 Dose: 40 meq Fluticasone/Salmeterol (Fluticasone-Salmeterol 232-14 Mcg Powder Inha) 1 puff INH BIDRT [facility] Last Admin: 12/13/18 14:27 Dose: Not Given - Exam Quality Assessment: DVT Prophylaxis General: Alert, Oriented, Cooperative Lungs: Clear to Auscultation, Normal Respiratory Effort Cardiovascular: Regular Rate, Regular Rhythm, No Murmurs GI/Abdominal Exam: Soft, Non-Tender, No Organomegaly, No Distention Skin: Other (Shingles left back and abdominal wall) - Problem List Review Problem List Initiated/Reviewed/Updated: Yes - My Orders Last 24 Hours: My Active Orders 12/14/18 14:04 Consult to Physical Therapy [PT Evaluation and Treatment] [CONS] Routine OT Evaluation and Treatment [CONS] Routine 12/15/18 13:03 Convert IV to Saline Lock [OM.PC] Routine - Plan Plan:: ASSESSMENT AND PLAN - Acute kidney injury - resolved, renal function is back to baseline Hypoactive delirium - improved over the last 24 hours, he is more alert and conversant but not yet back to baseline -Continue to hold valacyclovir Shingles - diagnosed 12/11 with impressive rash noted on the left side. Treatment will be on hold until his kidney function improves and the medication clears from his system. -Reassess treatment when mental status improves Insulin-dependent diabetes mellitus - sugars on the low side and oral intake poor. -Continue long-acting insulin with reduced dose -4 times a day glucometers -Sliding-scale insulin Stage III sacral ulcer/present on admission - he has been receiving home care for this ulcer which was present on admission. 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 Maintenance issues - - DVT prophylaxis - WILLOW stockings - GI prophylaxis - not indicated - Nutrition - diabetic diet - Munroe catheter - not indicated at this time CODE STATUS - full code Admission justification - This patient will be admitted for inpatient services and is medically appropriate meeting medical necessity for inpatient admission as outlined in my documentation. I reasonably expect the patient will require inpatient services that span a period time over 2 midnights. I reasonably expect this patient to be discharged or transferred within 96 hours [facility] Disposition - I would anticipate discharge home after the hospital stay Primary care physician - Jazzy Payne MD
[2018-12-15] MEDS: Aspirin 81 MG Tab.EC PO SCH (21:24)
[2018-12-15] MEDS: Insulin Glargine,Human Rec. Analog 100 Units/ML 3 ML Pen SUBCUT SCH (21:26)
[2018-12-16] MEDS: Fluticasone-Salmeterol 232-14 MCG Powder Inhalent INH SCH ×2 (07:11→20:25)
[2018-12-16] MEDS: Albuterol/Ipratropium 3.0-0.5 MG/3 ML Neb Soln NEB SCH ×5 (07:11→20:31)
[2018-12-16] MEDS: Insulin Lispro 100 Unit/ML 3 ML KwikPen SUBCUT SCH ×4 (08:35→21:56)
[2018-12-16] MEDS: Lactobacillus Rhamnosus GG (Probiotic) Cap PO SCH ×2 (08:45→20:27)
[2018-12-16] MEDS: Furosemide 20 MG Tab PO SCH (08:46)
[2018-12-16] MEDS: Tamsulosin 0.4 MG Cap.ER PO SCH (08:46)
[2018-12-16] MEDS: Sertraline 50 MG Tab PO SCH (08:47)
[2018-12-16] MEDS: Cyanocobalamin (Vitamin B12) 1,000 MCG Tab PO SCH (08:48)
[2018-12-16] MEDS: Metoprolol Succinate 25 MG Tab.ER PO SCH (08:49)
--- NOTE | 2018-12-16 14:23 | PCM.PN ---
- General Info Date of Service: 12/16/18 Subjective Update: Mr. Silva has been stable since yesterday, lethargy has resolved he is alert and interactive without slurred speech today. Denies significant pain at the present time. Functional Status: Reports: Tolerating Diet, Urinating - Review of Systems General: Reports: Weakness. Denies: Fever, Chills Pulmonary: Reports: No Symptoms Cardiovascular: Reports: No Symptoms Gastrointestinal: Reports: No Symptoms Skin: Reports: Rash - Patient Data Vitals - Most Recent: Last Vital Signs Temp 98.1 F 12/16/18 11:10 Pulse 86 12/16/18 11:23 Resp 24 H 12/16/18 11:10 BP 145/62 H 12/16/18 11:10 Pulse Ox 94 L 12/16/18 11:23 Weight - Most Recent: 246 lb 4.807 oz I&O - Last 24 Hours: Intake & Output 12/15/18 12/16/18 12/16/18 22:59 06:59 14:59 Intake Total 800 550 660 Output Total 200 300 Balance 800 350 360 Med Orders - Current: Current Medications Acetaminophen (Tylenol) 650 mg PO Q4H PRN PRN Reason: Pain (Mild 1-3)/fever Last Admin: 12/15/18 19:40 Dose: 650 mg Albuterol (Proventil Neb Soln) 2.5 mg NEB Q4H PRN PRN Reason: Shortness Of Breath/wheezing Albuterol/Ipratropium (Duoneb 3.0-0.5 Mg/3 Ml) 3 ml NEB QIDRT [facility] Last Admin: 12/16/18 11:23 Dose: 3 ml Aspirin (Halfprin) 81 mg PO BEDTIME [facility] Last Admin: 12/15/18 21:24 Dose: 81 mg Cyanocobalamin (Vitamin B12) 1,000 mcg PO DAILY [facility] Last Admin: 12/16/18 08:48 Dose: 1,000 mcg Dimethicone/Zinc Oxide (Rash Relief-Zinc Oxide [place]) 0 gm TOP ASDIRECTED PRN PRN Reason: Rash Last Admin: 12/13/18 20:23 Dose: 1 bottle Furosemide (Lasix) 20 mg PO DAILY [facility] Last Admin: 12/16/18 08:46 Dose: 20 mg Insulin Glargine (Lantus Solostar) 22 units SUBCUT BEDTIME [facility] Last Admin: 12/15/18 21:26 Dose: 22 units Insulin Human Lispro (Humalog) 0 unit SUBCUT QIDACANDBED [facility]; Protocol Last Admin: 12/16/18 12:11 Dose: Not Given Lactobacillus Rhamnosus (Culturelle) 1 cap PO BID [facility] Last Admin: 12/16/18 08:45 Dose: 1 cap Lorazepam (Ativan) 0.5 mg IVPUSH Q4H PRN PRN Reason: Nausea/Vomiting Magnesium Hydroxide (Milk Of Magnesia) 30 ml PO Q12H PRN PRN Reason: Constipation Last Admin: 12/16/18 09:23 Dose: 30 ml Metoprolol Succinate (Toprol Xl) 25 mg PO DAILY [facility] Last Admin: 12/16/18 08:49 Dose: 25 mg Ondansetron HCl (Zofran Odt) 4 mg PO Q6H PRN PRN Reason: Nausea able to take PO Ondansetron HCl (Zofran) 4 mg IV Q6H PRN PRN Reason: Nausea/Vomiting Oxycodone HCl (Oxycodone) 5 mg PO Q4H PRN PRN Reason: Pain Fluticasone/Salmeterol (Fluticasone-Salmeterol 232-14 Mcg Powder Inha) 0 puff INH BIDRT [facility] Last Admin: 12/16/18 07:11 Dose: 1 puff Senna/Docusate Sodium (Senna Plus) 1 tab PO BID PRN PRN Reason: Constipation Last Admin: 12/16/18 09:23 Dose: 1 tab Sertraline HCl (Zoloft) 100 mg PO DAILY [facility] Last Admin: 12/16/18 08:47 Dose: 100 mg Tamsulosin HCl (Flomax) 0.8 mg PO DAILY [facility] Last Admin: 12/16/18 08:46 Dose: 0.8 mg Discontinued Medications Dimethicone/Zinc Oxide (Rash Relief-Zinc Oxide [place]) Confirm Administered Dose 56 gm TOP .STK-MED ONE Stop: 12/13/18 20:19 Last Admin: 12/13/18 20:23 Dose: Not Given Sodium Chloride (Normal Saline) 1,000 mls @ 500 mls/hr IV ASDIRECTED [facility] Last Admin: 12/13/18 01:12 Dose: 500 mls/hr Sodium Chloride (Normal Saline) 1,000 mls @ 125 mls/hr IV ASDIRECTED [facility] Last Admin: 12/13/18 05:02 Dose: 125 mls/hr Potassium Chloride 20 meq/Lidocaine HCl 2 ml/ Sodium Chloride 112 mls @ 50 mls/ hr IV Q2H [facility] Stop: 12/13/18 13:59 Last Admin: 12/13/18 12:32 Dose: 50 mls/hr Sodium Chloride (Normal Saline) 1,000 mls @ 100 mls/hr IV ASDIRECTED [facility] Last Admin: 12/14/18 07:57 Dose: 100 mls/hr Sodium Chloride (Normal Saline) 1,000 mls @ 50 mls/hr IV ASDIRECTED [facility] Last Admin: 12/14/18 22:30 Dose: 50 mls/hr Insulin Glargine (Lantus Solostar) 41 units SUBCUT BEDTIME [facility] Insulin Glargine (Lantus Solostar) 41 units SUBCUT BEDTIME [facility] Lidocaine HCl (Xylocaine 2% Jelly) 10 ml MUCMEM ONETIME ONE Stop: 12/13/18 00:14 Last Admin: 12/13/18 00:37 Dose: 10 ml Potassium Chloride (Klor-Con M20) 40 meq PO ONETIME ONE Stop: 12/14/18 09:01 Last Admin: 12/14/18 09:45 Dose: 40 meq Potassium Chloride (Klor-Con M20) 40 meq PO ONETIME ONE Stop: 12/14/18 17:01 Last Admin: 12/14/18 17:08 Dose: 40 meq Fluticasone/Salmeterol (Fluticasone-Salmeterol 232-14 Mcg Powder Inha) 1 puff INH BIDRT [facility] Last Admin: 12/13/18 14:27 Dose: Not Given - Exam Quality Assessment: DVT Prophylaxis General: Alert, Oriented, Cooperative, Mild Distress Lungs: Clear to Auscultation, Normal Respiratory Effort Cardiovascular: Regular Rate, Regular Rhythm, No Murmurs GI/Abdominal Exam: Soft, Non-Tender, No Organomegaly, No Distention Extremities: Non-Tender, No Pedal Edema Skin: Other (Shingles left back and upper abdominal wall) - Problem List Review Problem List Initiated/Reviewed/Updated: Yes - Plan Plan:: ASSESSMENT AND PLAN - Acute kidney injury - resolved, renal function is back to baseline Hypoactive delirium -resolved Shingles - diagnosed 12/11 with impressive rash noted on the left side. Treatment will be on hold until his kidney function improves and the medication clears from his system. -Continue current management Insulin-dependent diabetes mellitus - sugars on the low side and oral intake poor. -Continue long-acting insulin with reduced dose -4 times a day glucometers -Sliding-scale insulin Sacral ulcer/present on admission - he has been receiving home care for this ulcer which was present on admission. 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 Maintenance issues - - DVT prophylaxis - WILLOW stockings - GI prophylaxis - not indicated - Nutrition - diabetic diet - Munroe catheter - not indicated at this time CODE STATUS - full code Admission justification - This patient will be admitted for inpatient services and is medically appropriate meeting medical necessity for inpatient admission as outlined in my documentation. I reasonably expect the patient will require inpatient services that span a period time over 2 midnights. I reasonably expect this patient to be discharged or transferred within 96 hours [facility]. Disposition - I would anticipate discharge home after the hospital stay Primary care physician - Jazzy Payne MD
[2018-12-16] MEDS: Acetaminophen 325 MG Tab PO PRN (20:25)
[2018-12-16] MEDS: oxyCODONE 5 MG Tab PO PRN (20:26)
[2018-12-16] MEDS: Aspirin 81 MG Tab.EC PO SCH (20:27)
[2018-12-16] MEDS ORDERED: Melatonin 3 MG Tab PO SCH (21:00)
[2018-12-16] MEDS: Insulin Glargine,Human Rec. Analog 100 Units/ML 3 ML Pen SUBCUT SCH (21:57)
[2018-12-17] MEDS: Albuterol/Ipratropium 3.0-0.5 MG/3 ML Neb Soln NEB SCH ×3 (06:59→14:41)
[2018-12-17] MEDS: Fluticasone-Salmeterol 232-14 MCG Powder Inhalent INH SCH (06:59)
[2018-12-17] MEDS: Acetaminophen 325 MG Tab PO PRN (08:44)
[2018-12-17] MEDS: oxyCODONE 5 MG Tab PO PRN (08:44)
[2018-12-17] MEDS: Lactobacillus Rhamnosus GG (Probiotic) Cap PO SCH (09:13)
[2018-12-17] MEDS: Metoprolol Succinate 25 MG Tab.ER PO SCH (09:14)
[2018-12-17] MEDS: Tamsulosin 0.4 MG Cap.ER PO SCH (09:14)
[2018-12-17] MEDS: Furosemide 20 MG Tab PO SCH (09:14)
[2018-12-17] MEDS: Sertraline 50 MG Tab PO SCH (09:15)
[2018-12-17] MEDS: Cyanocobalamin (Vitamin B12) 1,000 MCG Tab PO SCH (09:15)
[2018-12-17] MEDS: Insulin Lispro 100 Unit/ML 3 ML KwikPen SUBCUT SCH ×2 (09:42→12:01)
[2018-12-17 11:44] VITALS: BP 133/62; PULSE 87
--- NOTE | 2018-12-17 12:19 | PCM.DCSUM1 ---
Discharge Summary - Hospital Course Brief History: Mr. Silva is an 88-year-old gentleman admitted with decreased level of consciousness secondary to dehydration, level buildup of his antiviral medication and severe shingles. - Discharge Data Discharge Date: 12/17/18 Discharge Disposition: DC/Tfer to SNF 03 Condition: Fair - Referral to Home Health Primary Care Physician: PCP None - Discharge Diagnosis/Problem(s) (1) Herpes zoster SNOMED Code(s): 6289184 ICD Code: B02.9 - ZOSTER WITHOUT COMPLICATIONS Status: Acute Current Visit: Yes (2) Acute kidney injury SNOMED Code(s): 00978161, 72594695 ICD Code: N17.9 - ACUTE KIDNEY FAILURE, UNSPECIFIED Status: Acute Current Visit: Yes (3) Post-polio syndrome SNOMED Code(s): 72233219 ICD Code: G14 - POSTPOLIO SYNDROME Status: Chronic Current Visit: Yes (4) Type 2 diabetes mellitus SNOMED Code(s): 50138315 ICD Code: E11.9 - TYPE 2 DIABETES MELLITUS WITHOUT COMPLICATIONS Status: Chronic Priority: Medium Current Visit: No Qualifiers: Diabetes mellitus remote computer terminal operator insulin use: with remote computer terminal operator use Diabetes mellitus complication status: without complication Qualified Code(s): E11.9 - Type 2 diabetes mellitus without complications; Z79.4 - intermediate (current) use of insulin (5) CKD (chronic kidney disease) stage 4, GFR 15-29 ml/min SNOMED Code(s): 505900966 ICD Code: N18.4 - CHRONIC KIDNEY DISEASE, STAGE 4 (SEVERE) Status: Chronic Priority: Medium Current Visit: No (6) Obesity (BMI 30-39.9) SNOMED Code(s): 345264614, 820525871 ICD Code: E66.9 - OBESITY, UNSPECIFIED Status: Chronic Current Visit: No - Patient Summary/Data Consults: Consultations 12/14/18 14:04 Consult to Physical Therapy [PT Evaluation and Treatment] [CONS] Routine Please Evaluate and Treat. PT Reason for Consult: discharge to home Pending Discharge: Yes This query below is only for informational purposes and is not editable. Admission Diagnosis/Problem: Acute kidney injury OT Evaluation and Treatment [CONS] Routine Please Evaluate and Treat. OT Reason for Consult: dischrge to home Pending Discharge: Yes This query below is only for informational purposes and is not editable. Admission Diagnosis/Problem: Acute kidney injury Hospital Course: Mr. Silva presented to the emergency room by ambulance after his [employer] noted that he has been more lethargic, confused and hallucinating. He is lethargic and confused and does not provide reliable history. He is able to tell me that he is having pain on his left lower side where his shingles is at but he's not able to further characterize the pain. Per report from his [employer], he was diagnosed with shingles yesterday and started on valacyclovir. Since that time he developed the above-mentioned symptoms which have steadily progressed. He does tell me that he has not had much to eat in the last few days and has not had a bowel movement in several days but these were about the only useful pieces of history I could gather and I'm not sure if they are reliable or not. Workup in the emergency room revealed a creatinine of 2.7 with a baseline of 1.8. Impressive shingles rash is noted on the left side of his abdomen and lower back. There is concerned that he has accumulated the valacyclovir because of his poor kidney function. He will be admitted for management of acute kidney injury and his hypoactive delirium. On admission he was given IV fluids for hydration and over the next few days his renal function did return back to baseline. His mentation also did take some time to improve but by the time of discharge he was alert and oriented. He was not restarted on antiviral therapy given the time of that it past since onset of the shingles. He recognizes that he is very weak and has accepted detention placement for restorative physical therapy and occupational therapy. Activity will be as tolerated and he will resume his usual diet. - Patient Instructions Diet: Diabetic Diet Activity: As Tolerated Other/Special Instructions: Daily PT and OT while at the detention - Discharge Plan *PRESCRIPTION DRUG MONITORING PROGRAM REVIEWED*: No *COPY OF PRESCRIPTION DRUG MONITORING REPORT IN PATIENT QUENTIN: No Prescriptions/Med Rec: oxyCODONE 5 mg PO Q4H PRN #20 tablet PRN Reason: Pain Home Medications: Home Meds Allopurinol [Zyloprim] 300 mg PO DAILY 10/10/16 [History] Budesonide/Formoterol [Symbicort 160-4.5 MCG] 2 puff INH BID 10/10/16 [History] Pravastatin [Pravachol] 40 mg PO DAILY 10/10/16 [History] Acetaminophen [Pain Relief] 650 mg PO QID PRN 04/12/17 [History] Cyanocobalamin (Vitamin B-12) [Vitamin B-12] 1,000 mcg PO DAILY 04/12/17 [ History] Insulin Aspart [NovoLOG] See Protocol SQ TIDMEALS 04/12/17 [History] Insulin Glarg,Human.Rec.Analog [Lantus] 41 unit SUBCUT BEDTIME 04/12/17 [History ] Isosorbide Mononitrate [Isosorbide Mononitrate ER] 30 mg PO DAILY 04/12/17 [ History] Sertraline HCl 100 mg PO DAILY 04/12/17 [History] Albuterol Sulfate [Proair Respiclick] 2 puff INH Q4H PRN 04/14/17 [History] Aspirin [Halfprin] 81 mg PO BEDTIME 04/14/17 [History] Albuterol [Proventil] 1 inh INH Q4H PRN 05/02/17 [History] Furosemide [Lasix] 20 mg PO DAILY 05/06/17 [History] Potassium Chloride 10 meq PO DAILY 05/06/17 [History] Tamsulosin [Flomax] 2 tab PO DAILY 05/06/17 [History] Albuterol [Proventil Neb Soln] 2.5 mg .XX QID PRN 10/14/18 [History] Cholecalciferol (Vitamin D3) [Vitamin D3] 2,000 unit PO DAILY 10/14/18 [History] Metoprolol Succinate [Toprol XL] 25 mg PO DAILY 10/14/18 [History] Lactobacillus Rhamnosus GG [Culturelle] 1 cap PO BID #60 cap 10/19/18 [Rx] Sennosides/Docusate Sodium [Senna Plus Tablet] 1 tab PO BID PRN 12/13/18 [ History] oxyCODONE 5 mg PO Q4H PRN #20 tablet 12/17/18 [Rx] Referrals: Jazzy Payne MD [Ordering Only Provider] - - Discharge Summary/Plan Comment DC Time >30 min.: No - Patient Data Vitals - Most Recent: Last Vital Signs Temp 99.0 F 12/17/18 11:43 Pulse 87 12/17/18 11:43 Resp 20 12/17/18 07:00 BP 133/62 09/19/19 11:43 Pulse Ox 96 12/17/18 11:43 Weight - Most Recent: 246 lb 4.807 oz I&O - Last 24 hours: Intake & Output 12/16/18 12/17/18 12/17/18 22:59 06:59 14:59 Intake Total 250 350 480 Output Total 575 150 Balance -325 200 480 Med Orders - Current: Current Medications Acetaminophen (Tylenol) 650 mg PO Q4H PRN PRN Reason: Pain (Mild 1-3)/fever Last Admin: 12/17/18 08:44 Dose: 650 mg Albuterol (Proventil Neb Soln) 2.5 mg NEB Q4H PRN PRN Reason: Shortness Of Breath/wheezing Albuterol/Ipratropium (Duoneb 3.0-0.5 Mg/3 Ml) 3 ml NEB QIDRT [facility] Last Admin: 12/17/18 10:43 Dose: 3 ml Aspirin (Halfprin) 81 mg PO BEDTIME [facility] Last Admin: 12/16/18 20:27 Dose: 81 mg Cyanocobalamin (Vitamin B12) 1,000 mcg PO DAILY [facility] Last Admin: 12/17/18 09:15 Dose: 1,000 mcg Dimethicone/Zinc Oxide (Rash Relief-Zinc Oxide [place]) 0 gm TOP ASDIRECTED PRN PRN Reason: Rash Last Admin: 12/13/18 20:23 Dose: 1 bottle Furosemide (Lasix) 20 mg PO DAILY [facility] Last Admin: 12/17/18 09:14 Dose: 20 mg Insulin Glargine (Lantus Solostar) 22 units SUBCUT BEDTIME [facility] Last Admin: 12/16/18 21:57 Dose: 22 units Insulin Human Lispro (Humalog) 0 unit SUBCUT QIDACANDBED [facility]; Protocol Last Admin: 12/17/18 12:01 Dose: 1 unit Lactobacillus Rhamnosus (Culturelle) 1 cap PO BID [facility] Last Admin: 12/17/18 09:13 Dose: 1 cap Lorazepam (Ativan) 0.5 mg IVPUSH Q4H PRN PRN Reason: Nausea/Vomiting Magnesium Hydroxide (Milk Of Magnesia) 30 ml PO Q12H PRN PRN Reason: Constipation Last Admin: 12/16/18 09:23 Dose: 30 ml Melatonin (Melatonin) 9 mg PO BEDTIME [facility] Last Admin: 12/16/18 20:29 Dose: 9 mg Metoprolol Succinate (Toprol Xl) 25 mg PO DAILY [facility] Last Admin: 12/17/18 09:14 Dose: 25 mg Ondansetron HCl (Zofran Odt) 4 mg PO Q6H PRN PRN Reason: Nausea able to take PO Ondansetron HCl (Zofran) 4 mg IV Q6H PRN PRN Reason: Nausea/Vomiting Oxycodone HCl (Oxycodone) 5 mg PO Q4H PRN PRN Reason: Pain Last Admin: 12/17/18 08:44 Dose: 5 mg Fluticasone/Salmeterol (Fluticasone-Salmeterol 232-14 Mcg Powder Inha) 0 puff INH BIDRT [facility] Last Admin: 12/17/18 06:59 Dose: 1 puff Senna/Docusate Sodium (Senna Plus) 1 tab PO BID PRN PRN Reason: Constipation Last Admin: 12/16/18 09:23 Dose: 1 tab Sertraline HCl (Zoloft) 100 mg PO DAILY [facility] Last Admin: 12/17/18 09:15 Dose: 100 mg Tamsulosin HCl (Flomax) 0.8 mg PO DAILY [facility] Last Admin: 12/17/18 09:14 Dose: 0.8 mg Discontinued Medications Dimethicone/Zinc Oxide (Rash Relief-Zinc Oxide [place]) Confirm Administered Dose 56 gm TOP .STK-MED ONE Stop: 12/13/18 20:19 Last Admin: 12/13/18 20:23 Dose: Not Given Sodium Chloride (Normal Saline) 1,000 mls @ 500 mls/hr IV ASDIRECTED [facility] Last Admin: 12/13/18 01:12 Dose: 500 mls/hr Sodium Chloride (Normal Saline) 1,000 mls @ 125 mls/hr IV ASDIRECTED [facility] Last Admin: 12/13/18 05:02 Dose: 125 mls/hr Potassium Chloride 20 meq/Lidocaine HCl 2 ml/ Sodium Chloride 112 mls @ 50 mls/ hr IV Q2H [facility] Stop: 12/13/18 13:59 Last Admin: 12/13/18 12:32 Dose: 50 mls/hr Sodium Chloride (Normal Saline) 1,000 mls @ 100 mls/hr IV ASDIRECTED [facility] Last Admin: 12/14/18 07:57 Dose: 100 mls/hr Sodium Chloride (Normal Saline) 1,000 mls @ 50 mls/hr IV ASDIRECTED [facility] Last Admin: 12/14/18 22:30 Dose: 50 mls/hr Insulin Glargine (Lantus Solostar) 41 units SUBCUT BEDTIME [facility] Insulin Glargine (Lantus Solostar) 41 units SUBCUT BEDTIME [facility] Lidocaine HCl (Xylocaine 2% Jelly) 10 ml MUCMEM ONETIME ONE Stop: 12/13/18 00:14 Last Admin: 12/13/18 00:37 Dose: 10 ml Potassium Chloride (Klor-Con M20) 40 meq PO ONETIME ONE Stop: 12/14/18 09:01 Last Admin: 12/14/18 09:45 Dose: 40 meq Potassium Chloride (Klor-Con M20) 40 meq PO ONETIME ONE Stop: 12/14/18 17:01 Last Admin: 12/14/18 17:08 Dose: 40 meq Fluticasone/Salmeterol (Fluticasone-Salmeterol 232-14 Mcg Powder Inha) 1 puff INH BIDRT [facility] Last Admin: 12/13/18 14:27 Dose: Not Given - Exam Quality Assessment: Reports: DVT Prophylaxis General: Reports: Alert, Oriented, Cooperative, Mild Distress Lungs: Reports: Clear to Auscultation, Normal Respiratory Effort Cardiovascular: Reports: Regular Rate, Regular Rhythm GI/Abdominal Exam: Soft, Non-Tender, No Organomegaly, No Distention Skin: Reports: Other (Shingles left upper back and upper abdominal wall)
== END 2018-12-17 15:00 | DRG 682 ==
LOC: JP.ED 23:53 → JP.MS 12-13 02:03
PROVIDERS: ADMIT Internal Medicine; ATTEND Hospitalist
DX: N17.9 Acute kidney failure, unspecified (principal); T50.905A Adverse effect of unspecified drugs, medicaments and biological substances, initial encounter; R44.3 Hallucinations, unspecified; L89.103 Pressure ulcer of unspecified part of back, stage 3; R41.0 Disorientation, unspecified; R47.9 Unspecified speech disturbances; R53.1 Weakness; I12.9 Hypertensive chronic kidney disease with stage 1 through stage 4 chronic kidney disease, or unspecified chronic kidney disease; J44.9 Chronic obstructive pulmonary disease, unspecified; E86.0 Dehydration; I10 Essential (primary) hypertension; E11.9 Type 2 diabetes mellitus without complications; R06.02 Shortness of breath; M10.9 Gout, unspecified; E66.9 Obesity, unspecified; E78.00 Pure hypercholesterolemia, unspecified; M19.91 Primary osteoarthritis, unspecified site; I25.10 Atherosclerotic heart disease of native coronary artery without angina pectoris; N42.9 Disorder of prostate, unspecified; Z79.4 Long term (current) use of insulin; Z79.82 Long term (current) use of aspirin; Z79.899 Other long term (current) drug therapy; Z95.5 Presence of coronary angioplasty implant and graft; Z86.73 Personal history of transient ischemic attack (TIA), and cerebral infarction without residual deficits; Z87.440 Personal history of urinary (tract) infections; R89.2 Abnormal level of other drugs, medicaments and biological substances in specimens from other organs, systems and tissues; G14 Postpolio syndrome; T37.5X5A Adverse effect of antiviral drugs, initial encounter; N18.4 Chronic kidney disease, stage 4 (severe); E11.22 Type 2 diabetes mellitus with diabetic chronic kidney disease; Z98.49 Cataract extraction status, unspecified eye; Z68.32 Body mass index [BMI] 32.0-32.9, adult
CPT/HCPCS: 36415; 80048; 81001; 84484; 85027; 99284; 99285; J7030; 82962; 94640; 97163-GP; 97165-GO; 97535-GP; A9270-GY; J1815; J1815-GY; J2001; J3480; J7620-GY

== ENCOUNTER 2020-09-01 11:32 | Emergency (ER) | payer MEDICARE, OTHER ==
[2020-09-01] MEDS ORDERED: Bacitracin Oint 1 GM U/D Packet TOP ONE (12:25)
[2020-09-01] MEDS ORDERED: Lidocaine 1% with EPINEPHrine 1:100,000 50 ML MDV INJECT ONE (12:27)
--- NOTE | 2020-09-01 12:29 | EDM.PDOC ---
ED HPI GENERAL MEDICAL PROBLEM - General Chief Complaint: Laceration Stated Complaint: MEDICAL [facility]IA [facility] Time Seen by Provider: 09/01/20 12:18 Source of Information: Reports: Patient, [facility] Records, RN Notes Reviewed History Limitations: Reports: No Limitations - History of Present Illness INITIAL COMMENTS - FREE TEXT/NARRATIVE: Patient was riding his motorized wheelchair through a door and he struck the door frame with his left 4th toe. Joseph reports he did this [employer]. He denies any other injuries or trauma. Last tetanus 2007. - Related Data Allergies Allergy/AdvReac Type Severity Reaction Status Date / Time No Known Allergies Allergy Verified 09/01/20 12:01 Home Meds: Home Meds Allopurinol [Zyloprim] 300 mg PO DAILY 10/10/16 [History] Budesonide/Formoterol [Symbicort 160-4.5 MCG] 2 puff INH BID 10/10/16 [History] Pravastatin [Pravachol] 40 mg PO DAILY 10/10/16 [History] Acetaminophen 650 mg PO QID PRN 04/12/17 [History] Cyanocobalamin (Vitamin B-12) [Vitamin B-12] 1,000 mcg PO DAILY 04/12/17 [History] Insulin Aspart [NovoLOG] See Protocol SQ TIDMEALS 04/12/17 [History] Insulin Glarg,Human.Rec.Analog [Lantus] 41 unit SUBCUT BEDTIME 04/12/17 [History] Isosorbide Mononitrate [Isosorbide Mononitrate ER] 30 mg PO DAILY 04/12/17 [History] Sertraline HCl 100 mg PO DAILY 04/12/17 [History] Albuterol Sulfate [Proair Respiclick] 2 puff INH Q4H PRN 04/14/17 [History] Aspirin [Halfprin] 81 mg PO BEDTIME 04/14/17 [History] Albuterol [Proventil] 1 inh INH Q4H PRN 05/02/17 [History] Furosemide [Lasix] 20 mg PO DAILY 05/06/17 [History] Potassium Chloride 10 meq PO DAILY 05/06/17 [History] Tamsulosin [Flomax] 2 tab PO DAILY 05/06/17 [History] Albuterol [Proventil Neb Soln] 2.5 mg .XX QID PRN 10/14/18 [History] Cholecalciferol (Vitamin D3) [Vitamin D3] 2,000 unit PO DAILY 10/14/18 [History] Metoprolol Succinate [Toprol XL] 25 mg PO DAILY 10/14/18 [History] Lactobacillus Rhamnosus GG [Culturelle] 1 cap PO BID #60 cap 10/19/18 [Rx] Sennosides/Docusate Sodium [Senna Plus Tablet] 1 tab PO BID PRN 12/13/18 [History] oxyCODONE 5 mg PO Q4H PRN #20 tablet 12/17/18 [Rx] Past Medical History HEENT History: Reports: Cataract, Impaired Vision Other HEENT History: L carpel tunnel Cardiovascular History: Reports: Arrhythmia, CAD, High Cholesterol, Hypertension, Stents Other Cardiovascular History: 5 stents Respiratory History: Reports: Asthma, COPD, SOB, Other (See Below) Other Respiratory History: on inhaler Gastrointestinal History: Reports: Chronic Constipation Genitourinary History: Reports: Prostate Disorder, UTI, Recurrent, Other (See Below) Other Genitourinary History: slow flow Musculoskeletal History: Reports: Arthritis, Gout, Other (See Below) 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/17 Neurological History: Reports: TIA, Other (See Below) Other Neuro History: "passes out episodes-no diagnosis from MRI,CT" Psychiatric History: Reports: Anxiety, Dementia Endocrine/Metabolic History: Reports: Diabetes, Type II, IDDM, Obesity/BMI 30+, Vitamin D Deficiency Hematologic History: Reports: B12 Deficiency Immunologic History: Reports: None Oncologic (Cancer) History: Reports: Colon Dermatologic History: Reports: Other (See Below) Other Dermatologic History: age spots, - Infectious Disease History Infectious Disease History: Reports: Shingles Other Infectious Disease History: polio - Past Surgical History Head Surgeries/Procedures: Reports: None HEENT Surgical History: Reports: Cataract Surgery, Tonsillectomy Cardiovascular Surgical History: Reports: Coronary Artery Stent Respiratory Surgical History: Reports: None GI Surgical History: Reports: Colon, Colonoscopy, Hernia, Abdominal Other GI Surgeries/Procedures: bowel resection Male Surgical History: Reports: None Endocrine Surgical History: Reports: None Neurological Surgical History: Reports: None Musculoskeletal Surgical History: Reports: Joint Replacement, Knee Replacement Other Musculoskeletal Surgeries/Procedures:: right knee Oncologic Surgical History: Reports: None Dermatological Surgical History: Reports: None Social & Family History - Family History Family Medical History: No Pertinent Family History - Tobacco Use Tobacco Use Status *Q: Never Tobacco User - Caffeine Use Caffeine Use: Reports: Coffee, Soda - Living Situation & Occupation Living situation: Reports: ( of 60 + years 7 years ago. Daughter this year from muscular dystrophy) Occupation: Disabled ED ROS GENERAL - Review of Systems Review Of Systems: See Below Constitutional: Reports: No Symptoms HEENT: Reports: No Symptoms Respiratory: Reports: No Symptoms Cardiovascular: Reports: No Symptoms Endocrine: Reports: No Symptoms GI/Abdominal: Reports: No Symptoms : Reports: No Symptoms Musculoskeletal: Reports: Other (left 4th toe pain, laceration from striking left foot on edge of door frame) Skin: Reports: Other (laceration to left 4th toe) Neurological: Reports: No Symptoms Psychiatric: Reports: No Symptoms Hematologic/Lymphatic: Reports: No Symptoms Immunologic: Reports: No Symptoms ED EXAM, SKIN/RASH Exam: See Below Exam Limited By: No Limitations General Appearance: Alert, WD/WN, No Apparent Distress Eye Exam: Bilateral Eye: Normal Inspection, PERRL Throat/Mouth: Normal Inspection, Normal Lips, Normal Gums, Normal Voice, No Airway Compromise Head: Atraumatic, Normocephalic Respiratory/Chest: No Respiratory Distress, Lungs Clear, Normal Breath Sounds, No Accessory Muscle Use, Chest Non-Tender. No: Decreased Breath Sounds, Crackles, Rales, Rhonchi, Wheezing Cardiovascular: Normal Peripheral Pulses, Regular Rate, Rhythm, No Edema, No Gallop, No Murmur, No Rub Peripheral Pulses: 3+: Radial (L), Radial (R), Dorsalis Pedis (L), Dorsalis Pedis (R) Extremities: No Pedal Edema, Normal Capillary Refill, Other (left 4th toe pain at site of laceration, bleeding controlled. ) Neurological: Alert, Oriented, Normal Cognition, No Motor/Sensory Deficits, Other (Patient uses wheelchair, no loss of sensation to feet or toes. ) Psychiatric: Normal Affect, Normal Mood Skin: Warm, Dry, No Rash, Ecchymosis, Other (Irregular laceration to base of 4th left toe and fat pad). No: Erythema, Increased Warmth Associated features: Tenderness Lymphatic: No Adenopathy ED SKIN PROCEDURES - Laceration/Wound Repair Left Toe - Fourth Appearance: Subcutaneous, Irregular Distal NVT: Neuro & Vascular Intact, No Tendon Injury Anesthetic Type: Local Local Anesthesia - Lidocaine (Xylocaine): 1% with EPI Local Anesthetic Volume: 1cc Skin Prep: Chlorhexidine (Hibiciens), Saline, Sterile Drape Saline Irrigation (cc's): 60 Exploration/Debridement/Repair: Wound Explored, In a Bloodless Field, Minimal Debridement Closed with: Sutures Lac/Wound length In cm: 2 (irregular to fat pad and base of toe, avulsion small amount epidermis. ) Suture Size: 5-0 # of Sutures: 6 Suture Type: Nylon Drain Placement: No Sterile Dressing Applied: Provider Tetanus Status Addressed: Yes Complications: No Complication Description: Patient tolerated well. Course - Vital Signs Last Recorded V/S: Last Vital Signs Temp 97.0 C H 09/01/20 12:19 Pulse 78 09/01/20 15:38 Resp 20 09/01/20 14:04 BP 126/50 L 09/01/20 15:38 Pulse Ox 97 09/01/20 15:38 - Orders/Labs/Meds Orders: Active Orders 24 hr Category Date Time Status Vaccines to be Administered [RC] PER UNIT ROUTINE Care 09/01/20 13:22 Active Meds: Medications Discontinued Medications Generic Name Dose Route Start Last Admin Trade Name Freq PRN Reason Stop Dose Admin Bacitracin 1 dose 09/01/20 12:25 09/01/20 13:23 Bacitracin Oint 1 Gm U/D Packet TOP 09/01/20 12:26 1 dose ONETIME ONE Administration Diphtheria/Tetanus/Acell Pertussis 0.5 ml 09/01/20 13:21 09/01/20 13:26 Diphtheria,Pertussis(Acell),Tetanus Vaccine 0.5 Ml Syringe IM 09/01/20 13:22 0.5 ml .ONCE ONE Administration Lidocaine/Epinephrine 2 ml 09/01/20 12:27 09/01/20 13:23 Lidocaine 1% With Epinephrine 1:100,000 50 Ml Mdv INJECT 09/01/20 12:28 2 ml ONETIME ONE Administration Departure - Departure Time of Disposition: 14:08 Disposition: Home, Self-Care 01 Condition: Good Clinical Impression: Laceration of toe of left foot - Discharge Information *PRESCRIPTION DRUG MONITORING PROGRAM REVIEWED*: Not Applicable *COPY OF PRESCRIPTION DRUG MONITORING REPORT IN PATIENT QUENTIN: Not Applicable Instructions: Laceration Care, Adult Referrals: PCP,None [Primary Care Provider] - Forms: ED Department Discharge Additional Instructions: Joseph has been evaluated and treated for laceration base of left 4th toe with partial avulsion of fat pad. 6 sutures were placed Tetanus updated Keep the wound clean and dry May remove and change current dressing in 24 hours May was with soap and water - do not submerge the wound until healed. Apply small amount bacitracin topically to wound twice a day. Remove sutures in 10 days with primary provider or return to the emergency room. No fracture noted with x-ray. Return for increased pain, redness, edema or signs of infection. Sepsis Event Note (ED) - Focused Exam Vital Signs: Vital Signs Temp Pulse Resp BP Pulse Ox 09/01/20 15:38 78 126/50 L 97 09/01/20 14:04 77 20 156/78 H 96 09/01/20 13:30 75 18 156/73 H 96 09/01/20 13:00 76 18 144/69 H 97 09/01/20 12:19 97.0 C H 73 18 137/63 97 - My Orders Last 24 Hours: My Active Orders 09/01/20 13:22 Vaccines to be Administered [RC] PER UNIT ROUTINE - Assessment/Plan Last 24 Hours: My Active Orders 09/01/20 13:22 Vaccines to be Administered [RC] PER UNIT ROUTINE Assessment:: Laceration of toe of left foot Plan: Patient evaluated and treated for laceration base of left 4th toe with partial avulsion of fat pad. 6 sutures were placed Tetanus updated Keep the wound clean and dry May remove and change current dressing in 24 hours May was with soap and water - do not submerge the wound until healed. Apply small amount bacitracin topically to wound twice a day. Remove sutures in 10 days with primary provider or return to the emergency room. No fracture noted with x-ray. Return for increased pain, redness, edema or signs of infection.
--- NOTE | 2020-09-01 13:05 | CR ---
Foot Comp Min 3V Lt CLINICAL HISTORY: Fourth toe injury FINDINGS: Bones are osteopenic. There is some osteoarthritic change in the interphalangeal and the first tarsometatarsal joints. There is hallux valgus and bunion formation There is deformity of the calcaneus similar to a study from 2017. There is an old fracture of the third metatarsal IMPRESSION: No acute fracture seen Chronic foot deformity Osteoarthritis with bunion formation and hallux valgus
[2020-09-01] MEDS ORDERED: Diphtheria,Pertussis(Acell),Tetanus Vaccine 0.5 ML Syringe IM ONE (13:21)
[2020-09-01 17:09] VITALS: BP 154/66; PULSE 76
== END 2020-09-01 17:13 | disposition home or self-care (01) ==
LOC: JP.ED 11:32
DX: S91.115A Laceration without foreign body of left lesser toe(s) without damage to nail, initial encounter (principal); I25.10 Atherosclerotic heart disease of native coronary artery without angina pectoris; E78.00 Pure hypercholesterolemia, unspecified; I10 Essential (primary) hypertension; J44.9 Chronic obstructive pulmonary disease, unspecified; M10.9 Gout, unspecified; E11.9 Type 2 diabetes mellitus without complications; F03.90 Unspecified dementia, unspecified severity, without behavioral disturbance, psychotic disturbance, mood disturbance, and anxiety; E66.9 Obesity, unspecified; Z68.33 Body mass index [BMI] 33.0-33.9, adult; Z23 Encounter for immunization; Z79.4 Long term (current) use of insulin; Z79.82 Long term (current) use of aspirin; Z79.899 Other long term (current) drug therapy; W22.8XXA Striking against or struck by other objects, initial encounter
CPT/HCPCS: 12001; 73630-26-LT; 73630-LT; 90471; 90715; 99283-25